=== PATIENT | male | born 1935 | race Caucasian/White ===

== ENCOUNTER 2016-10-27 12:53 | Emergency (ER) | payer OTHER ==
[~2016-10-27] VITALS: Ht 188 cm; Wt 130.0 kg
[~2016-10-27 12:53] MED LIST: AMLO10 PO; ATOR10 PO; CARV6.25 PO; COLC.6 PO; ECASA PO; LISI10 PO; NITR.4 SL; TICA90 PO
[2016-10-27 12:55] VITALS: BP 140/77; PULSE 77; RESP 17; TEMP 98.2; O2SAT 94
[2016-10-27] MEDS ORDERED: PANT40TA3 PO (15:28)
[2016-10-27] MEDS ORDERED: ASPI81CH CHEW (15:28)
[2016-10-27] MEDS ORDERED: PROP40TA3 PO (15:28)
[2016-10-27] MEDS ORDERED: AMBI5TAB PO (16:43)
[2016-10-27] MEDS ORDERED: AMOX500C PO (16:43)
== END 2016-10-27 15:45 | disposition left against medical advice (07) ==
LOC: NED 12:53
DX: R05 Cough (principal)
CPT/HCPCS: 99281

== ENCOUNTER 2016-10-27 14:19 | Emergency (ER) | payer OTHER ==
[~2016-10-27] VITALS: Ht 188 cm; Wt 126.0 kg
[2016-10-27 14:23] VITALS: BP 117/88; PULSE 67; RESP 16; TEMP 97.9; O2SAT 94
[2016-10-27] MEDS ORDERED: SODIUM CHLORIDE 0.9% FLUSH 10 ML FLUSH IV FLUSH PRN (15:00)
[2016-10-27 15:21] VITALS: RESP 18; O2SAT 94
--- NOTE | 2016-10-27 15:27 | PD ---
HPI Chief Complaint: Cold / Flu Symptoms Time Seen by Provider: 14:44 Travel History International Travel<30 days: No Contact w/Intl Traveler<30days: No Traveled to known affect area: No History of Present Illness HPI Patient 81-year-old male presents emergency department for evaluation of cough and congestion For the past 4 days. Patient called his primary care physician and was told to come into the emergency department to have his sodium and potassium levels checked as he might be dehydrated. His states that he thinks she is fairly well hydrated and she has been pushing by mouth fluids on him at home and he might of been more dehydrated a few days ago but is hydrated well now. Patient states he has had fever at home to 101. States his been having some phlegm production which is yellow in color. No rashes no bowel pain no nausea no vomiting. Patient denies any body aches PFSH Past Medical History Hx Anticoagulant Therapy: Yes Cardiac Catheterization: Yes (stent 10/2015, 2 stents placed 2008) Cardiovascular Problems: Yes High Cholesterol: Yes Chemotherapy: No Cerebrovascular Accident: No Coronary Artery Disease: Yes Diabetes: No Hypertension: Yes Respiratory: No Immunizations Current: Yes Social History Alcohol Use: No Tobacco Use: No Substance Use: No Allergies-Medications (Allergen,Severity, Reaction): Coded Allergies: No Known Allergies (Unverified , 10/27/16) Reported Meds & Prescriptions Reported Meds & Active Scripts Active Ambien (Zolpidem Tartrate) 5 Mg Tab 5 Mg PO HS PRN Amoxicillin 500 Mg Cap 500 Mg PO TID 7 Days Reported Pantoprazole (Pantoprazole Sodium) 40 Mg Tab 40 Mg PO DAILY Aspirin 81 Mg Chew 81 Mg CHEW EVERY OTHER DAY Propranolol (Propranolol HCl) 40 Mg Tab 40 Mg PO Q12HR Review of Systems Except as stated in HPI: all other systems reviewed are Neg Physical Exam Narrative GENERAL: Well-developed well-nourished no apparent distress SKIN: Focused skin assessment warm/dry. HEAD: Atraumatic. Normocephalic. EYES: Pupils equal and round. No scleral icterus. No injection or drainage. ENT: No nasal bleeding or discharge. Mucous membranes pink and moist. TMs clear bilaterally, oropharynx clear, airway widely patent. NECK: Trachea midline. No JVD. CARDIOVASCULAR: Regular rate and rhythm. No murmur appreciated. RESPIRATORY: No accessory muscle use. Clear to auscultation. Breath sounds equal bilaterally. GASTROINTESTINAL: Abdomen soft, non-tender, nondistended. Hepatic and splenic margins not palpable. MUSCULOSKELETAL: No obvious deformities. No clubbing. No cyanosis. No edema. NEUROLOGICAL: Awake and alert. No obvious cranial nerve deficits. Motor grossly within normal limits. Normal speech. PSYCHIATRIC: Appropriate mood and affect; insight and judgment normal. Data Data Last Documented VS Vital Signs Date Time Temp Pulse Resp B/P Pulse Ox O2 Delivery O2 Flow Rate FiO2 10/27/16 16:51 62 16 132/65 95 10/27/16 15:21 Room Air 10/27/16 14:23 97.9 Orders Basic Metabolic Panel (Bmp) (10/27/16 14:57) Complete Blood Count With Diff (10/27/16 14:57) Iv Access Insert/Monitor (10/27/16 14:57) Ecg Monitoring (10/27/16 14:57) Oximetry (10/27/16 14:57) Sodium Chloride 0.9% Flush (Ns Flush) (10/27/16 15:00) Chest, Pa & Lat (10/27/16 ) Labs Laboratory Tests Test 10/27/16 15:20 White Blood Count 5.9 TH/MM3 Red Blood Count 5.35 MIL/MM3 Hemoglobin 14.6 GM/DL Hematocrit 44.3 % Mean Corpuscular Volume 82.7 FL Mean Corpuscular Hemoglobin 27.3 PG Mean Corpuscular Hemoglobin 33.0 % Concent Red Cell Distribution Width 13.1 % Platelet Count 184 TH/MM3 Mean Platelet Volume 8.4 FL Neutrophils (%) (Auto) 57.3 % Lymphocytes (%) (Auto) 26.3 % Monocytes (%) (Auto) 16.0 % Eosinophils (%) (Auto) 0.2 % Basophils (%) (Auto) 0.2 % Neutrophils # (Auto) 3.3 TH/MM3 Lymphocytes # (Auto) 1.6 TH/MM3 Monocytes # (Auto) 1.0 TH/MM3 Eosinophils # (Auto) 0.0 TH/MM3 Basophils # (Auto) 0.0 TH/MM3 CBC Comment DIFF FINAL Differential Comment Sodium Level 136 MEQ/L Potassium Level 3.9 MEQ/L Chloride Level 98 MEQ/L Carbon Dioxide Level 26.7 MEQ/L Anion Gap 11 MEQ/L Blood Urea Nitrogen 16 MG/DL Creatinine 1.40 MG/DL Estimat Glomerular Filtration 49 ML/MIN Rate Random Glucose 109 MG/DL Calcium Level 8.3 MG/DL [facility] Medical Decision Making Medical Screen Exam Complete: Yes Emergency Medical Condition: Yes Differential Diagnosis URI, Pneumonia, Electrolyte imbalance seems unlikely. Narrative Course Patient roomed in ED. He appears well and in nad. Basic workup ordered including electrolytes and cxr. Patient discussed with oncoming provider Dr. Nunez to follow up workup and disposition appropriately. Scripts Zolpidem (Ambien)5 Mg Tab5 Mg PO HS PRN (INSOMNIA) #10 TAB Ref 0 Prov:John Nunez MD 10/27/16 Amoxicillin 500 Mg [id number] Mg PO TID 7 Days Ref 0 Prov:John Nunez MD 10/27/16 Condition: Stable Chaz Espinoza MD Oct 27, 2016 15:27
[2016-10-27] MEDS ORDERED: PROP40TA3 PO (15:28)
[2016-10-27] MEDS ORDERED: PANT40TA3 PO (15:28)
[2016-10-27] MEDS ORDERED: ASPI81CH CHEW (15:28)
[2016-10-27 15:54] LABS: AUTOMATED NEUTROPHIL # 3.3 TH/MM3 (1.8-7.7); BASOPHIL % 0.2 % (0.0-2.0); EOSINOPHIL % 0.2 % (0.0-4.0); HEMATOCRIT 44.3 % (39.0-51.0); HEMO FLAGS DIFF FINAL; LYMPH % 26.3 % (9.0-44.0); LYMPHOCYTE # 1.6 TH/MM3 (1.0-4.8); MEAN CELL VOLUME 82.7 FL (80.0-100.0); MEAN CORPUSCULAR HEMOGLOBIN 27.3 PG (27.0-34.0); NEUT % 57.3 % (16.0-70.0); PLATELET COUNT 184 TH/MM3 (150-450); RED BLOOD COUNT 5.35 MIL/MM3 (4.50-5.90); RED CELL DISTRIBUTION WIDTH 13.1 % (11.6-17.2); WHITE BLOOD COUNT 5.9 TH/MM3 (4.0-11.0)
--- NOTE | 2016-10-27 16:08 | RADHPO ---
EXAM DATE/TIME: 10/27/2016 15:25 [facility] COMPARISON: No previous studies available for comparison. FINDINGS: PA and lateral views of the chest demonstrate the lungs to be symmetrically aerated without evidence of mass, infiltrate or effusion. The cardiomediastinal contours are unremarkable. Osseous structure s are intact. CONCLUSION: No acute disease. Vitor Blanco MD FACR on October 27, 2016 at 16:06 Board Certified Radiologist. This report was verified electronically.
[2016-10-27 16:17] LABS: POTASSIUM 3.9 MEQ/L (3.5-5.1)
[2016-10-27 16:21] LABS: BICARBONATE 26.7 MEQ/L (21.0-32.0)
[2016-10-27] MEDS ORDERED: AMOX500C PO (16:43)
[2016-10-27] MEDS ORDERED: AMBI5TAB PO (16:43)
--- NOTE | 2016-10-27 16:43 | PD ---
HPI Chief Complaint: Cold / Flu Symptoms Time Seen by Provider: 16:39 Travel History International Travel<30 days: No Contact w/Intl Traveler<30days: No Traveled to known affect area: No History of Present Illness HPI This 81-year-old male says he been sick since last . It is now Thursday morning. He was seen initially by Dr. Espinoza. He's been having cough and congestion. He is feeling weak all over. He does use albuterol for wheezing. He stopped smoking [address] Espinoza ordered workup. His white count is 5.9. Electrolytes are normal. Creatinine slightly elevated at 1.4. Patient's main complaint is that he has not been able sleep for several days. He does say he has chronic trouble sleeping. On my examination he does have some scattered wheezes. It appears he has some COPD and I am going to cover him with antibiotics the appearance of a viral illness. Also prescribed 5 5 mg tablets of Ambien in hopes that he can get some sleep. I have cautioned him that it will make him unsteady. PFSH Past Medical History Hx Anticoagulant Therapy: Yes Cardiac Catheterization: Yes (stent 10/2015, 2 stents placed 2008) Cardiovascular Problems: Yes High Cholesterol: Yes Chemotherapy: No Cerebrovascular Accident: No Coronary Artery Disease: Yes Diabetes: No Diminished Hearing: No Hypertension: Yes Respiratory: No Immunizations Current: Yes Tetanus Vaccination: < 5 Years Social History Alcohol Use: No Tobacco Use: No (QUIT "40 YEARS AGO" STATED 10/27/16) Substance Use: No Allergies-Medications (Allergen,Severity, Reaction): Coded Allergies: No Known Allergies (Unverified , 10/27/16) Reported Meds & Prescriptions Reported Meds & Active Scripts Active Reported Pantoprazole (Pantoprazole Sodium) 40 Mg Tab 40 Mg PO DAILY Aspirin 81 Mg Chew 81 Mg CHEW EVERY OTHER DAY Propranolol (Propranolol HCl) 40 Mg Tab 40 Mg PO Q12HR Review of Systems General / Constitutional: Positive: Chills Respiratory: Positive: Cough Musculoskeletal: Positive: Myalgias, Weakness Hematologic/Lymphatic: Positive: Easy Bruising Physical Exam Narrative See Dr. Espinoza's note for full exam. On my exam does have some expiratory wheezing. I did examine her legs because of the leg weakness. He has good strength in flexion at the hip. Strength and I interpret dorsiflexion of the feet sensation is normal. He is awake and alert Data Data Last Documented VS Vital Signs Date Time Temp Pulse Resp B/P Pulse Ox O2 Delivery O2 Flow Rate FiO2 10/27/16 15:21 18 94 Room Air 10/27/16 14:23 97.9 67 117/88 Orders Basic Metabolic Panel (Bmp) (10/27/16 14:57) Complete Blood Count With Diff (10/27/16 14:57) Iv Access Insert/Monitor (10/27/16 14:57) Ecg Monitoring (10/27/16 14:57) Oximetry (10/27/16 14:57) Sodium Chloride 0.9% Flush (Ns Flush) (10/27/16 15:00) Chest, Pa & Lat (10/27/16 ) Labs Laboratory Tests Test 10/27/16 15:20 White Blood Count 5.9 TH/MM3 Red Blood Count 5.35 MIL/MM3 Hemoglobin 14.6 GM/DL Hematocrit 44.3 % Mean Corpuscular Volume 82.7 FL Mean Corpuscular Hemoglobin 27.3 PG Mean Corpuscular Hemoglobin 33.0 % Concent Red Cell Distribution Width 13.1 % Platelet Count 184 TH/MM3 Mean Platelet Volume 8.4 FL Neutrophils (%) (Auto) 57.3 % Lymphocytes (%) (Auto) 26.3 % Monocytes (%) (Auto) 16.0 % Eosinophils (%) (Auto) 0.2 % Basophils (%) (Auto) 0.2 % Neutrophils # (Auto) 3.3 TH/MM3 Lymphocytes # (Auto) 1.6 TH/MM3 Monocytes # (Auto) 1.0 TH/MM3 Eosinophils # (Auto) 0.0 TH/MM3 Basophils # (Auto) 0.0 TH/MM3 CBC Comment DIFF FINAL Differential Comment Sodium Level 136 MEQ/L Potassium Level 3.9 MEQ/L Chloride Level 98 MEQ/L Carbon Dioxide Level 26.7 MEQ/L Anion Gap 11 MEQ/L Blood Urea Nitrogen 16 MG/DL Creatinine 1.40 MG/DL Estimat Glomerular Filtration 49 ML/MIN Rate Random Glucose 109 MG/DL Calcium Level 8.3 MG/DL [facility] Medical Decision Making Medical Screen Exam Complete: Yes Emergency Medical Condition: Yes Medical Record Reviewed: Yes Differential Diagnosis Differential includes influenza, COPD, pneumonia Narrative Course 3 is negative for pneumonia. Patient does have some wheezing on exam and I think would benefit from antibiotics have also advised him to use his albuterol. I will prescribe some Ambien for sleep Diagnosis Primary Impression: Acute bronchitis Scripts Zolpidem (Ambien)5 Mg Tab5 Mg PO HS PRN (INSOMNIA) #10 TAB Ref 0 Prov:John Nunez MD 10/27/16 Amoxicillin 500 Mg Chh960 Mg PO TID 7 Days Ref 0 Prov:John Nunez MD 10/27/16 Disposition: 01 DISCHARGE HOME Condition: Stable John Nunez MD Oct 27, 2016 16:43
[2016-10-27 16:51] VITALS: BP 132/65
== END 2016-10-27 16:57 | disposition home or self-care (01) ==
LOC: PHED 14:19
DX: J20.9 Acute bronchitis, unspecified (principal); I10 Essential (primary) hypertension; Z87.891 Personal history of nicotine dependence
CPT/HCPCS: 71020; 80048; 85025; 99284

== ENCOUNTER 2017-03-19 11:15 | Inpatient (IN) | payer OTHER, MEDICARE ==
[~2017-03-19] VITALS: Ht 185.4 cm; Wt 131.0 kg
[2017-03-19] VITALS (13 sets, daily range): BP systolic 123–167; BP diastolic 62–96; PULSE 77–120; RESP 16–21; TEMP 97.4–97.8; O2SAT 95–97
[~2017-03-19 11:15] MED LIST changes: +AMBI5TAB PO; -AMLO10 PO; +AMOX500C PO; +ASPI81CH CHEW; -ATOR10 PO; -CARV6.25 PO; -COLC.6 PO; -ECASA PO; -LISI10 PO; -NITR.4 SL; +PANT40TA3 PO; +PROP40TA3 PO; -TICA90 PO
--- NOTE | 2017-03-19 12:06 | PD ---
HPI Chief Complaint: Cardiac Complaint Time Seen by Provider: 12:05 Travel History International Travel<30 days: No Contact w/Intl Traveler<30days: No Traveled to known affect area: No History of Present Illness HPI Patient comes emergency Department for evaluation of shortness of breath and chest pain that he awoke with this morning. Patient denies anything making it better or worse. States pain radiates across his chest. He states he initially woke feeling something stinging him as right middle finger and then began having symptoms. Patient states he has not taken his aspirin or other meds since yesterday morning secondary to supposed to be having a dental procedure done today. Patient's associated diaphoresis. Denies any palpitations, numbness or tingling, headache, back pain, nausea, or vomiting. Patient has a history of hypertension, hyperlipidemia, coronary disease, and pericarditis. Patient denies any history of A. fib. Patient is followed by Dr. Mehta his chief nursing officer. Patient denies doing anything for this prior to coming to the emergency department. PFSH Past Medical History Hx Anticoagulant Therapy: Yes Cardiac Catheterization: Yes (stent 10/2015, 2 stents placed 2008) Cardiovascular Problems: Yes (3 STENTS AL AFIB) High Cholesterol: Yes Chemotherapy: No Cerebrovascular Accident: No Coronary Artery Disease: Yes Diabetes: No Diminished Hearing: No Hypertension: Yes Respiratory: No Immunizations Current: Yes Social History Alcohol Use: No Tobacco Use: No (QUIT "40 YEARS AGO" STATED 10/27/16) Substance Use: No Allergies-Medications (Allergen,Severity, Reaction): Coded Allergies: No Known Allergies (Unverified , 03/19/17) Reported Meds & Prescriptions Reported Meds & Active Scripts Active Reported Pantoprazole (Pantoprazole Sodium) 40 Mg Tab 40 Mg PO DAILY Propranolol (Propranolol HCl) 40 Mg Tab 40 Mg PO Q12HR Review of Systems Except as stated in HPI: all other systems reviewed are Neg Physical Exam Narrative GENERAL: Well-developed, overly nourished, in no acute distress, and non-ill appearing. SKIN: Focused skin assessment warm and dry. HEAD: Atraumatic. Normocephalic. EYES: Pupils equal and round. EOMI. No scleral icterus. No injection or drainage. ENT: No nasal bleeding or discharge. Mucous membranes pink and moist. NECK: Trachea midline. No JVD. Supple. No nuclear rigidity. CARDIOVASCULAR: Irregular rate and rhythm. No murmur appreciated. RESPIRATORY: No accessory muscle use. No respiratory distress. Clear to auscultation. Breath sounds equal bilaterally. GASTROINTESTINAL: Abdomen soft, non-tender, nondistended, and no guarding. Hepatic and splenic margins not palpable. Normal bowel sounds 4. No pulsatile mass. MUSCULOSKELETAL: No obvious deformities. No clubbing. No cyanosis. No edema. Full range of motion. NEUROLOGICAL: Awake and alert. No obvious cranial nerve deficits. Motor grossly within normal limits. Normal speech. PSYCHIATRIC: Appropriate mood and affect; insight and judgment normal. Data Data Last Documented VS Vital Signs Date Time Temp Pulse Resp B/P Pulse Ox O2 Delivery O2 Flow Rate FiO2 03/19/17 12:36 86 19 123/63 96 Room Air 03/19/17 12:08 97.6 Orders Electrocardiogram (03/19/17 11:24) Complete Blood Count With Diff (03/19/17 11:24) Basic Metabolic Panel (Bmp) (03/19/17 11:24) Ckmb (Isoenzyme) Profile (03/19/17 11:24) Troponin I (03/19/17 11:24) Iv Access Insert/Monitor (03/19/17 11:24) Ecg Monitoring (03/19/17 11:24) Oxygen Administration (03/19/17 11:24) Oximetry (03/19/17 11:24) Chest, Pa & Lat (03/19/17 11:24) Magnesium (Mg) (03/19/17 12:00) Diltiazem Inj (Cardizem Inj) (03/19/17 12:15) Diltiazem Inj (Cardizem Inj) (03/19/17 12:15) Aspirin Chew (Aspirin Chew) (03/19/17 12:15) Prothrombin Time / Inr (Pt) (03/19/17 13:11) Act Partial Throm Time (Ptt) (03/19/17 13:11) CKMB (03/19/17 12:40) CKMB% (03/19/17 12:40) Aspirin Chew (Aspirin Chew) (03/19/17 13:45) Heparin Infusion ANGELA.Q1H (03/19/17 13:52) Heparin Inj (Heparin Inj) (03/19/17 20:00) Heparin Inj (Heparin Inj) (03/19/17 20:00) Heparin-D5w Inj (Heparin-D5w Inj) (03/19/17 14:00) Act Partial Throm Time (Ptt) (03/19/17 13:52) Prothrombin Time / Inr (Pt) (03/19/17 13:52) Cbc No Diff, Includes Plts (03/19/17 13:52) Cbc No Diff, Includes Plts (03/22/17 06:00) Act Partial Throm Time (Ptt) (03/19/17 20:52) Occult Blood (Hemoccult) Stool (03/19/17 13:52) Consult Cardiology (03/19/17 ) Admit Order (Ed Use Only) (03/19/17 14:16) Labs Laboratory Tests Test 03/19/17 03/19/17 12:15 12:40 Magnesium Level 2.0 MG/DL White Blood Count 9.2 TH/MM3 Red Blood Count 5.73 MIL/MM3 Hemoglobin 16.2 GM/DL Hematocrit 49.1 % Mean Corpuscular Volume 85.8 FL Mean Corpuscular Hemoglobin 28.3 PG Mean Corpuscular Hemoglobin 32.9 % Concent Red Cell Distribution Width 14.1 % Platelet Count 238 TH/MM3 Mean Platelet Volume 7.8 FL Neutrophils (%) (Auto) 61.4 % Lymphocytes (%) (Auto) 28.0 % Monocytes (%) (Auto) 8.7 % Eosinophils (%) (Auto) 1.6 % Basophils (%) (Auto) 0.3 % Neutrophils # (Auto) 5.6 TH/MM3 Lymphocytes # (Auto) 2.6 TH/MM3 Monocytes # (Auto) 0.8 TH/MM3 Eosinophils # (Auto) 0.1 TH/MM3 Basophils # (Auto) 0.0 TH/MM3 CBC Comment DIFF FINAL Differential Comment Prothrombin Time 10.7 SEC Prothromb Time International 1.0 RATIO Ratio Activated Partial 30.3 SEC Thromboplast Time Sodium Level 136 MEQ/L Potassium Level 4.2 MEQ/L Chloride Level 102 MEQ/L Carbon Dioxide Level 22.4 MEQ/L Anion Gap 12 MEQ/L Blood Urea Nitrogen 20 MG/DL Creatinine 1.35 MG/DL Estimat Glomerular Filtration 51 ML/MIN Rate Random Glucose 140 MG/DL Calcium Level 8.9 MG/DL Total Creatine Kinase 219 U/L Creatine Kinase MB 10.8 NG/ML Troponin I 0.64 NG/ML MDM Medical Decision Making Medical Screen Exam Complete: Yes Emergency Medical Condition: Yes Medical Record Reviewed: Yes Interpretation(s) EKG reviewed by Dr. Espinoza shows A. fib with RVR ventricular rate of 136. No STEMI. Chest x-ray read by the radiologist shows: No acute cardiopulmonary disease. Differential Diagnosis New-onset A. fib, acute coronary syndrome, pneumonia, pneumothorax, electrolyte abnormality, other Narrative Course Patient was seen and examined. Was established. Patient was placed on court monitor. Patient was given aspirin. Initial laboratory radiological studies were ordered. 1300 patient reassessed reports feeling better since getting Cardizem heart rate is better controlled. Patient reports shortness of breath has resolved. Labs and radiological exams were reviewed. Discussed patient with Dr. Espinoza, who is in agreement with plan of care and disposition. Discussed all findings and plan care of patient, who is agreeable for admission. All questions were answered. Physician Communication Physician Communication [id number] Mccray, chief nursing officer on-call for Dr. Mehta, who recommends starting patient on heparin drip and admitted to medicine. [id number] Funes, who is agreeable to admit the patient. Diagnosis Primary Impression: New onset a-fib Additional Impression: Elevated troponin Admitting Information Admitting Physician Requests: Admit Condition: Stable Chacho Fortune Mar 19, 2017 12:06
[2017-03-19] MEDS ORDERED: DILTIAZEM HCL 25 MG/5 ML VIAL IV ONE (12:15)
[2017-03-19] MEDS ORDERED: ASPIRIN 81 MG CHEW TAB PO ONE ×2 (12:15→13:45)
[2017-03-19] MEDS ORDERED: DILTIAZEM INJ 125 MG in SODIUM CHLORIDE 0.9% INJ 100 ML IV SCH (12:15)
--- NOTE | 2017-03-19 12:22 | RADRPT ---
EXAM DATE/TIME: 03/19/2017 11:51 [facility] COMPARISON: CHEST PA & LAT, October 27, 2016, 15:25. INDICATIONS : Chest discomfort and short of breath. Patient in A-fib. MEDICAL HISTORY : Hypertension. Cardiovascular disease. SURGICAL HISTORY : Coronary artery stent. ENCOUNTER: Initial ACUITY: 1 day PAIN SCORE: 3/10 LOCATION: Bilateral chest FINDINGS: The heart and mediastinal structures are normal. The pulmonary vascular pattern is also normal. The lungs are clear. CONCLUSION: No acute cardiopulmonary disease. Chaz Salinas MD on March 19, 2017 at 12:09 Board Certified Radiologist. This report was verified electronically.
[2017-03-19 13:17] LABS: AUTOMATED NEUTROPHIL # 5.6 TH/MM3 (1.8-7.7); BASOPHIL % 0.3 % (0.0-2.0); EOSINOPHIL # 0.1 TH/MM3 (0-0.4); EOSINOPHIL % 1.6 % (0.0-4.0); HEMATOCRIT 49.1 % (39.0-51.0); HEMO FLAGS DIFF FINAL; LYMPHOCYTE # 2.6 TH/MM3 (1.0-4.8); MEAN CELL VOLUME 85.8 FL (80.0-100.0); MEAN CORPUSCULAR HEMOGLOBIN 28.3 PG (27.0-34.0); MEAN CORPUSCULAR HGB CONC 32.9 % (32.0-36.0); MONO % 8.7 % (0.0-8.0); NEUT % 61.4 % (16.0-70.0); PLATELET COUNT 238 TH/MM3 (150-450); RED BLOOD COUNT 5.73 MIL/MM3 (4.50-5.90); RED CELL DISTRIBUTION WIDTH 14.1 % (11.6-17.2); WHITE BLOOD COUNT 9.2 TH/MM3 (4.0-11.0)
[2017-03-19 13:32] LABS: ANION GAP 12 MEQ/L (5-15); BICARBONATE 22.4 MEQ/L (21.0-32.0); BLOOD UREA NITROGEN 20 MG/DL (7-18); CHLORIDE 102 MEQ/L (98-107); CREATINE KINASE 219 U/L (39-308); GLOMERULAR FILTRATION RATE 51 ML/MIN (>89); POTASSIUM 4.2 MEQ/L (3.5-5.1); SODIUM (NA) 136 MEQ/L (136-145)
[2017-03-19 13:48] LABS: CKMB 10.8 NG/ML (0.5-3.6)
[2017-03-19 13:59] LABS: APTT (PATIENT) 30.3 SEC (24.3-30.1); PROTHROMBIN TIME - PATIENT 10.7 SEC (9.8-11.6)
[2017-03-19] MEDS ORDERED: MAGNESIUM HYDROXIDE SUSP 30 ML CUP PO PRN (14:30)
[2017-03-19] MEDS ORDERED: BISACODYL 10 MG SUPP RECTAL PRN (14:30)
[2017-03-19] MEDS ORDERED: SENNOSIDES 8.6 MG TAB PO PRN (14:30)
[2017-03-19] MEDS ORDERED: LACTULOSE SYRUP 20 GM/30 ML CUP PO PRN (14:30)
[2017-03-19] MEDS ORDERED: ATORVASTATIN 80 MG TAB PO ONE (14:30)
[2017-03-19] MEDS ORDERED: ONDANSETRON HCL 4 MG/2 ML VIAL IVP PRN (14:30)
[2017-03-19] MEDS ORDERED: SODIUM CHLORIDE 0.9% FLUSH 10 ML FLUSH IV FLUSH PRN (14:30)
[2017-03-19] MEDS ORDERED: NALOXONE HCL 0.4 MG/ML AMP IV PRN (14:30)
[2017-03-19] MEDS ORDERED: HEPARIN SODIUM - IV 10,000 UNITS/10 ML VIAL ONE (15:00)
[2017-03-19] MEDS: HEPARIN SODIUM - IV 10,000 UNITS/10 ML VIAL IV PRN ×2 (15:02→22:02)
[2017-03-19] MEDS: HEPARIN-D5W 25,000 U/250 ML 250 ML IV SCH (15:03)
--- NOTE | 2017-03-19 15:07 | HHI.HP ---
H[facility] Primary [facility] Physician Terry Carbajal MD Admission Diagnosis new-onset A. fib with RVR, elevated troponin Diagnoses: Chief Complaint: chest pain, shortness of breath Travel History International Travel<30 Days: No Contact w/Intl Traveler <30 Da: No Traveled to Known Affected Are: No History of Present Illness Written by Julee Austin, acting as scribe for Dr. Funes on 03/19/17 at 16: 50hrs. This note was transcribed by scribe HENOK Momin. I, Dr. Lencho Funes personally performed the history, physical exam, and medical decision making; and confirmed the accuracy of the information in the transcribed note. Authenticated by Dr. Lencho Funes on 03/19/17 at 23:19. 81-year-old male with history of CAD s/p stents x3, hypertension, hyperlipidemia , pericarditis, PUD, presents with acute onset of chest pain and shortness of breath today 03/19/17. THe patient reports this morning around 2am he woke up with his right fingers hurting then shortly after he developed chest pain. He describes the pain as heaviness across the anterior chest, associated with shortness of breath, some diaphoresis, denies nausea/vomiting. He felt his heart was racing with palpitations. He waited for about an hour then took his blood pressure which was 140/118. His pain persisted for over 3 hours until he came to the ED. His repairing calibrator is Dr. Mehta. The patient reports he has been off his aspirin for upcoming dental procedure that was scheduled for today. Upon arrival, the patient was found to be in afib with RVR, started on IV Cardizem drip and IV heparin drip. The patient admits he has been told around November 2015 that he has atrial fibrillation however the patient has never had symptoms from this therefore he didn't believe he had it. He was going to be started on Eliquis soon however it was held off until he had his dental extractions. Review of Systems Except as stated in HPI: all other systems reviewed are Neg Past Family Social History Past Medical History CAD s/p stents x3 (2 in 2008, 1 in 2015) Hypertension Hyperlipidemia Essential tremors Melanoma PUD Pericarditis Past Surgical History Cardiac catheterization with stents x3 Melanoma resection in 1994 Tonsillectomy Reported Medications Pantoprazole (Pantoprazole Sodium) 40 Mg Tab 40 Mg PO DAILY Propranolol (Propranolol HCl) 40 Mg Tab 40 Mg PO Q12HR Allergies: Coded Allergies: No Known Allergies (Unverified , 03/19/17) Active Ordered Medications Current Medications Medications (Trade) Dose Ordered Sig/Makayla Route Start Time Stop Time Status Last Admin (Cardizem Inj/NS Inj) 125 ml @ 0 mls/hr TITRATE IV 03/19/17 12:15 (Heparin Inj) 5,000 units UNSCH PRN IV 03/19/17 20:00 Heparin Sodium (Porcine) 2500 units 2,500 units UNSCH PRN IV 03/19/17 20:00 (Heparin-D5W Inj) 250 ml @ 0 mls/hr TITRATE IV 03/19/17 14:00 (NS Flush) 2 ml UNSCH PRN IV FLUSH 03/19/17 14:30 (NS Flush) 2 ml BID IV FLUSH 03/19/17 21:00 (Tylenol) 650 mg Q4H PRN PO 03/19/17 14:30 (Zofran Inj) 4 mg Q6H PRN IVP 03/19/17 14:30 (Narcan Inj) 0.4 mg UNSCH PRN IV 03/19/17 14:30 (Brenda-Colace) 1 tab BID PO 03/19/17 21:00 (Milk Of Magnesia Liq) 30 ml Q12H PRN PO 03/19/17 14:30 (Senokot) 17.2 mg Q12H PRN PO 03/19/17 14:30 (Dulcolax Supp) 10 mg DAILY PRN RECTAL 03/19/17 14:30 (Lactulose Liq) 30 ml DAILY PRN PO 03/19/17 14:30 Family History Mother with [place], CVA, age 86 Father with [place], age 79 Social History Quit smoking tobacco 40years ago Denies any alcohol use Denies any illicit drug use Physical Exam Vital Signs Vital Signs Date Time Temp Pulse Resp B/P Pulse Ox O2 Delivery O2 Flow Rate FiO2 03/19/17 12:36 86 19 123/63 96 Room Air 03/19/17 12:08 97.6 113 18 164/89 96 Room Air 03/19/17 12:06 95 Room Air 03/19/17 12:06 95 Room Air 03/19/17 11:18 97.4 80 16 165/84 96 Physical Exam GENERAL: Well-nourished, well-developed elderly male patient in [facility]. SKIN: Warm and dry. No rash. HEAD: Normocephalic. Atraumatic. EYES: Pupils equal and round. No scleral icterus. No injection or drainage. ENT: No nasal bleeding or discharge. Mucous membranes pink and moist. NECK: Supple. Trachea midline. CARDIOVASCULAR: Irregular rate and rhythm. S1, S2 noted. No murmur appreciated. RESPIRATORY: No accessory muscle use. Clear to auscultation. Breath sounds equal bilaterally. GASTROINTESTINAL: Abdomen soft, non-tender, nondistended. Normoactive bowel sounds x4. MUSCULOSKELETAL: No obvious deformities. Extremities without clubbing, cyanosis , or edema. NEUROLOGICAL: Awake and alert. No obvious cranial nerve deficits. Motor grossly within normal limits. Moves all extremities spontaneously. Normal speech. PSYCHIATRIC: Appropriate mood and affect; insight and judgment normal. Laboratory Laboratory Tests Test 03/19/17 03/19/17 12:15 12:40 Magnesium Level 2.0 White Blood Count 9.2 Red Blood Count 5.73 Hemoglobin 16.2 Hematocrit 49.1 Mean Corpuscular Volume 85.8 Mean Corpuscular Hemoglobin 28.3 Mean Corpuscular Hemoglobin 32.9 Concent Red Cell Distribution Width 14.1 Platelet Count 238 Mean Platelet Volume 7.8 Neutrophils (%) (Auto) 61.4 Lymphocytes (%) (Auto) 28.0 Monocytes (%) (Auto) 8.7 Eosinophils (%) (Auto) 1.6 Basophils (%) (Auto) 0.3 Neutrophils # (Auto) 5.6 Lymphocytes # (Auto) 2.6 Monocytes # (Auto) 0.8 Eosinophils # (Auto) 0.1 Basophils # (Auto) 0.0 CBC Comment DIFF FINAL Differential Comment Prothrombin Time 10.7 Prothromb Time International 1.0 Ratio Activated Partial 30.3 Thromboplast Time Sodium Level 136 Potassium Level 4.2 Chloride Level 102 Carbon Dioxide Level 22.4 Anion Gap 12 Blood Urea Nitrogen 20 Creatinine 1.35 Estimat Glomerular Filtration 51 Rate Random Glucose 140 Calcium Level 8.9 Total Creatine Kinase 219 Creatine Kinase MB 10.8 Troponin I 0.64 Result Diagram: 03/19/17 1240 03/19/17 1240 Imaging Last Impressions Chest X-Ray 03/19/17 1124 Signed Impressions: Service Date/Time: March 11:51 - CONCLUSION: No acute cardiopulmonary disease. Chaz Salinas MD Assessment and Plan Problem List: (1) New onset a-fib ICD Code: I48.91 Status: Acute (2) NSTEMI (non-ST elevated myocardial infarction) ICD Code: I21.4 Status: Acute (3) CAD (coronary artery disease) ICD Code: I25.10 Status: Chronic (4) Chest pain ICD Code: R07.9 Status: Acute (5) Elevated troponin ICD Code: R74.8 Status: Acute (6) Hypertension ICD Code: I10 Status: Chronic (7) Hyperlipidemia ICD Code: E78.5 Status: Chronic Assessment and Plan 81-year-old male with history of CAD s/p stents x3, hypertension, hyperlipidemia , pericarditis, PUD, presents with acute onset of chest pain and shortness of breath today 03/19/17. Atrial Fibrillation with RVR: EKG reviewed, shows afib w/RVR, ventricular rate 136. S/p IV Cardizem 20mg x1. -Discussed with Dr. Mehta, start metoprolol 25mg q8h -Started anticoagulation with IV heparin drip, plan to transition to Xarelto. [id number] score 3 (Age, HTN). -Monitor on telemetry -Admit to [facility] -Cardiology consulted, patient known to Dr. Mehta NSTEMI: suspect secondary to ACS vs afib RVR, patient with complaints of chest pain and T wave abnormality in lateral leads. Hx of Cardiac Catheterization by Dr. Yusuf, stent placed at right coronary artery. -Continue to trend serial cardiac enzymes and EKGs -given aspirin, statin, IV morphine prn, O2 as needed -on Heparin drip as above -Cardiology consulted, discussed with Dr. Mehta, plan for heart cath tomorrow Hypertension: chronic -hold patient's propranolol for now as BP controlled on cardizem drip -monitor BP, adjust antihypertensives as needed Hyperlipidemia: Lipid panel October2015 wnl, not on statin -check lipid panel in am -discussed with patient, will start statin DVT Prophylaxis: on Heparin drip Discussed Condition With Patient, patient's , ER PA Physician Certification 2 Midnight Certification Type: Admission for Inpatient Services Order for Inpatient Services The services are ordered in accordance with Medicare regulations or non- Medicare payer requirements, as applicable. In the case of services not specified as inpatient-only, they are appropriately provided as inpatient services in accordance with the 2-midnight benchmark. Estimated LOS (days): 3 days is the estimated time the patient will need to remain in the hospital, assuming treatment plan goals are met and no additional complications. Post-Hospital Plan: Not yet determined Julee Austin PA-C Mar 19, 2017 15:07 Brenden Funes DO Mar 19, 2017 23:22
[2017-03-19] MEDS ORDERED: MORPHINE SULFATE 4 MG/ML INJ IV PUSH PRN (15:30)
[2017-03-19] MEDS ORDERED: METOPROLOL TARTRATE 25 MG TAB PO ONE (18:15)
[2017-03-19] MEDS ORDERED: HEPARIN SODIUM - IV 10,000 UNITS/10 ML VIAL IV PRN (20:00)
[2017-03-19] MEDS: DOCUSATE SODIUM 50 MG/SENNA 8.6 MG TAB PO SCH (20:57)
[2017-03-19] MEDS: SODIUM CHLORIDE 0.9% FLUSH 10 ML FLUSH IV FLUSH SCH (20:57)
[2017-03-19 21:23] LABS: APTT (PATIENT) 35.2 SEC (24.3-30.1)
[2017-03-19] MEDS ORDERED: METOPROLOL TARTRATE 25 MG TAB PO SCH (22:00)
--- NOTE | 2017-03-19 23:31 | MB ---
cc: VENKATA SCHUSTER DO DATE OF CONSULTATION March 19, 2017 REASON FOR CONSULTATION Atrial fibrillation, NSTEMI. HISTORY OF PRESENT ILLNESS Toni Thompson is a pleasant 81-year-old male whom I see in the office who presented to [facility] on March 19, 2017 due to atrial fibrillation, chest pain and shortness of breath. I recently saw Mr. Thompson in the office and started him on Eliquis for his atrial fibrillation. Overall, it appeared that his heart rate was relatively controlled. He started on Eliquis but it was too expensive and so he was going to start on Xarelto but had a dental procedure this week and so was just on aspirin and even that was held over the past two days. He woke up this morning and started having chest pain. He knew at that time he was in atrial fibrillation. He felt a heaviness across the front of his chest. He was also short of breath with any type of exertion. He is mildly diaphoretic during the episode. He denies nausea or vomiting. He felt like his heart was racing with palpitations. He called the office and was instructed to come to the emergency room. He finally decided at that time he should come into the emergency room. Upon arrival he was found to have an elevated troponin and was in atrial fibrillation with rapid ventricular response. He was given a dose of IV Cardizem and heart rate was then controlled. PAST MEDICAL HISTORY 1. Coronary artery disease. 2. Hypertension. 3. Hyperlipidemia. 4. Essential tremors. 5. Melanoma. 6. PUD. 7. Pericarditis. 8. Paroxysmal atrial fibrillation. PAST SURGICAL HISTORY 1. Cardiac catheterization with a history of three stents, most recent cardiac catheterization (October 03, 2015). He underwent PCI of his RCA with a Resolute drug-eluting stent (4 x 15). Left main was normal appearing. LAD had diffuse irregularities of 20%. In the left circumflex there was a lesion of 50-60%. RCA had a proximal 75% lesion for which the patient had PCI. 2. Melanoma resection (1994). 3. Tonsillectomy. ALLERGIES NO KNOWN DRUG ALLERGIES. MEDICATIONS 1. Propranolol 40 milligrams q. 12. 2. Protonix 40 milligrams daily. 3. Previously, although briefly, on Eliquis which was in the process of being changed to Xarelto. FAMILY HISTORY Mother had an PA and CVA and at the age of 86. Father had an PA and at the age of 79. SOCIAL HISTORY The patient quit smoking tobacco 40 years ago. Denies alcohol or illicit drug abuse. REVIEW OF SYSTEMS 14-systems were reviewed including osteopathic. Pertinent positives and negatives above otherwise negative. PHYSICAL EXAMINATION VITAL SIGNS: Temperature 97.6, heart rate 87, blood pressure 138/68, respirations 18, pulse ox 97% on room air. GENERAL: In general, the patient appears well in no acute distress, alert, awake and oriented x3. HEENT: Extraocular muscles intact. Mucous membranes moist. NECK: Supple. No JVD at 45 degrees. No carotid bruits heard bilaterally. Carotid upstroke is brisk in nature. HEART: Heart is irregularly irregular. Positive first and second heart sounds with no noted murmurs, gallops or rubs. LUNGS: Have decreased breath sounds at bilateral bases but no overt wheezes, rales or rhonchi. ABDOMEN: Soft, nontender, nondistended. No organomegaly noted. EXTREMITIES: Show no clubbing, cyanosis or edema. Femoral and distal pulses intact bilaterally. NEUROLOGICALLY: No focal deficits. SKIN: Warm, dry and intact. OSTEOPATHIC: Mild lordosis. No kyphoscoliosis or paraspinal tender points. LABORATORY FINDINGS Hemoglobin 16.2, hematocrit 49.1, platelets 238. Potassium 4.2, BUN 20, creatinine 1.35. Troponin 0.64 increasing to 0.9. Electrocardiogram (March 19, 2017 at 11:31) atrial fibrillation with rapid ventricular response, nonspecific ST-T wave changes. IMPRESSION 1. NSTEMI. 2. Chest pain concerning for coronary insufficiency. 3. History of coronary artery disease. 4. Paroxysmal atrial fibrillation with rapid ventricular response. 5. Hypertension. 6. Hyperlipidemia. 7. Chronic kidney disease. RECOMMENDATIONS 1. Mr. Thompson appears to have presented with elevated troponin and chest pain concerning for coronary insufficiency. His troponin spill is most likely type 1 in nature, although, this may also be type 2 as he was in a rapid ventricular response. 2. We will plan for him to undergo cardiac catheterization in the morning. Risks, benefits and alternatives were explained to him and he consented as such. 3. He will be started on heparin drip. 4. Will check a 2-D echo to look at his overall left ventricular function, cardiac structure and possible valvulopathies. 5. Eventually, he will be transferred to [facility] for his atrial fibrillation depending on the results of his cardiac catheterization. 6. We will plan to change his propranolol to metoprolol for better control of his heart rate. 7. Further recommendations will be made based on the hospital course. Thank you for allowing me to see Toni Thompson. If there are any questions please do not hesitate to call. Venkata Schuster DO VGP/EO /10:36 PM /11:09 PM
[2017-03-20] VITALS (23 sets, daily range): BP systolic 120–140; BP diastolic 72–85; PULSE 71–114; RESP 14–18; TEMP 97.3–98; O2SAT 96
[2017-03-20 05:42] LABS: APTT (PATIENT) 35.1 SEC (24.3-30.1)
[2017-03-20] MEDS: HEPARIN SODIUM - IV 10,000 UNITS/10 ML VIAL IV PRN ×2 (05:50→23:57)
[2017-03-20 06:03] LABS: ALT (GPT) 36 U/L (12-78); ANION GAP 11 MEQ/L (5-15); BICARBONATE 22.6 MEQ/L (21.0-32.0); BLOOD UREA NITROGEN 21 MG/DL (7-18); CHLORIDE 104 MEQ/L (98-107); GLOMERULAR FILTRATION RATE 52 ML/MIN (>89); SODIUM (NA) 138 MEQ/L (136-145)
[2017-03-20 06:29] LABS: ALKALINE PHOSPHATASE 47 U/L (45-117); AST (GOT) 42 U/L (15-37); TOTAL BILIRUBIN ADULT 0.5 MG/DL (0.2-1.0)
[2017-03-20] MEDS: SODIUM CHLORIDE 0.9% FLUSH 10 ML FLUSH IV FLUSH SCH ×2 (09:00→20:50)
--- NOTE | 2017-03-20 09:07 | HHI.PR ---
Subjective Remarks Follow-up for chest pain. Patient is currently doing well. Waiting for cardiac catheter today. Patient denies any chest pain, shortness of breath, fever or chills. His currently on heparin drip. Objective Vitals Vital Signs Date Time Temp Pulse Resp B/P Pulse Ox O2 Delivery O2 Flow Rate FiO2 03/20/17 07:00 89 03/20/17 06:00 102 03/20/17 05:00 100 03/20/17 04:00 90 03/20/17 03:30 97.7 80 16 129/85 96 03/20/17 03:00 97 03/20/17 02:00 92 03/20/17 01:00 94 03/20/17 00:00 97.9 75 18 120/72 96 03/20/17 00:00 86 03/19/17 23:00 120 03/19/17 22:23 97 03/19/17 22:00 98 03/19/17 21:15 83 03/19/17 21:15 97.8 77 18 141/96 96 03/19/17 20:49 87 18 138/68 97 Room Air 03/19/17 19:38 86 18 138/67 97 Room Air 03/19/17 18:29 95 19 126/65 95 Room Air 03/19/17 18:00 86 19 142/62 96 Room Air 03/19/17 17:35 119 21 167/79 96 Room Air 03/19/17 12:36 86 19 123/63 96 Room Air 03/19/17 12:08 97.6 113 18 164/89 96 Room Air 03/19/17 12:06 95 Room Air 03/19/17 12:06 95 Room Air 03/19/17 11:18 97.4 80 16 165/84 96 I/O 03/19/17 03/19/17 03/19/17 03/20/17 03/20/17 03/20/17 06:59 14:59 22:59 06:59 14:59 22:59 Intake Total 389 ml Output Total 400 ml Balance -11 ml Intake Oral 240 ml IV Total 149 ml Output Urine Total 400 ml # Voids 1 # Bowel Movements 2 Result Diagram: 03/19/17 1240 03/20/17 0521 Imaging Last Impressions Chest X-Ray 03/19/17 1124 Signed Impressions: Service Date/Time: March 11:51 - CONCLUSION: No acute cardiopulmonary disease. Chaz Salinas MD Objective Remarks GENERAL: Alert, oriented 3, NAD. SKIN: Warm and dry. HEAD: Normocephalic. EYES: No scleral icterus. No injection or drainage. NECK: Supple, trachea midline. No JVD or lymphadenopathy. CARDIOVASCULAR: Regular rate and rhythm without murmurs, gallops, or rubs. RESPIRATORY: Breath sounds equal bilaterally. No accessory muscle use. GASTROINTESTINAL: Abdomen soft, non-tender, nondistended. MUSCULOSKELETAL: No cyanosis, or edema. BACK: Nontender without obvious deformity. No CVA tenderness. A/P Problem List: (1) New onset a-fib ICD Code: I48.91 Status: Acute (2) NSTEMI (non-ST elevated myocardial infarction) ICD Code: I21.4 Status: Acute (3) CAD (coronary artery disease) ICD Code: I25.10 Status: Chronic (4) Chest pain ICD Code: R07.9 Status: Acute (5) Elevated troponin ICD Code: R74.8 Status: Acute (6) Hypertension ICD Code: I10 Status: Chronic (7) Hyperlipidemia ICD Code: E78.5 Status: Chronic Assessment and Plan 81-year-old male with history of CAD s/p stents x3, hypertension, hyperlipidemia , pericarditis, PUD, presents with acute onset of chest pain and shortness of breath today 03/19/17. Atrial Fibrillation with RVR: EKG reviewed, shows afib w/RVR, ventricular rate 136. S/p IV Cardizem 20mg x1. -Discussed with Dr. Mehta, start metoprolol 25mg q8h -Started anticoagulation with IV heparin drip, plan to transition to Xarelto. [id number] score 3 (Age, HTN). -Monitor on telemetry -Cardiology consulted, patient known to Dr. Mehta NSTEMI: suspect secondary to ACS vs afib RVR, patient with complaints of chest pain and T wave abnormality in lateral leads. Hx of Cardiac Catheterization by Dr. Yusuf, stent placed at right coronary artery. Multivessel Coronary artery disease -Troponins elevated consistent with NSTEMI. -given aspirin, statin, IV morphine prn, O2 as needed -on Heparin drip as above -Patient underwent cardiac cath this morning, shows multivessel coronary artery disease. Cardiothoracic surgery consulted. Hypertension: chronic -hold patient's propranolol for now as BP controlled on cardizem drip -Currently normotensive. Hyperlipidemia: Lipid panel October2015 wnl, not on statin -Will start patient on Lipitor 80mg QHS. DVT Prophylaxis: on Heparin drip Brenden Funes DO Mar 20, 2017 09:07
[2017-03-20] MEDS: METOPROLOL TARTRATE 25 MG TAB PO SCH ×2 (09:28→20:49)
[2017-03-20] MEDS: PANTOPRAZOLE SOD 40 MG DELAYED RELEASE TAB PO SCH (09:28)
[2017-03-20] MEDS: DOCUSATE SODIUM 50 MG/SENNA 8.6 MG TAB PO SCH ×2 (09:28→20:49)
[2017-03-20] MEDS: ASPIRIN 81 MG CHEW TAB CHEW SCH (09:28)
[2017-03-20] MEDS ORDERED: HEPARIN-NS/PF INJ 500 ML ONE (10:50)
[2017-03-20] MEDS ORDERED: MIDAZOLAM HCL 2 MG/2 ML VIAL ONE (10:58)
[2017-03-20] MEDS ORDERED: VERAPAMIL HCL 5 MG/2 ML VIAL ONE (10:59)
[2017-03-20] MEDS ORDERED: NITROGLYCERIN INJ 5 ML ONE (10:59)
[2017-03-20] MEDS ORDERED: HEPARIN SODIUM - IV 10,000 UNITS/10 ML VIAL ONE (10:59)
--- NOTE | 2017-03-20 11:54 | CATHPROC ---
[employer] HIS Report Study Information Study Number Admission Scheduled Start Study Start [id number] Mar 19 2017 2:19PM 03/20/2017 Mar 20 2017 10:28AM [place] [facility] Cardiac Catheterization Admit Source Facility Department Other [facility] - Datastage Developer Physician and Clinical Staff Initial Venkata Contreras Material Control SpecialistTrent Steven,DEEPALI Material Control Specialist Angie Roldan RN Other cathlab, cathlab Recorder Chris Curran RCIS(BS) Scrub Nunu Hernandez RT(R) (BS) Procedures Performed Procedure Location (Site) Vessel Name Coronary Angiograms LCA Left Coronary Coronary Angiograms RCA Right Coronary Equipment Time Tire Fabricator Description Size Mfg Part Number Used/Scraped TRANSDUCER, TRUWAVE [id number] 10:30 GRAY HILARIO * Used W/STOCKCOCK *[id number] *[id number] *[id number] 10:30 Harir PACK, CCL CUSTOM * Used *[id number] 10:30 Harir SUPPORT, ARTERIAL ADULT 05502 *[id number] Used BAND, RADIAL COMPRESSION TR [id number] 11:40 [employer] MEDICAL 29CM Used LARGE 29 *[id number] 10:30 [employer] WIRE, EXCHANGE 260CM 3MMJ 260CM Used *[id number] 10:30 [facility] MANIFOLD, 4 PORT * Used *[id number] 10:30 [employer] OMNIPAQUE, 350 MG, 150ML 150ML [id number] Used [id number] 10:30 [employer]on BLANKET,WARM AIR CCL * Used *[id number] SHEATH, FR6 TRANSRADIAL [id number] 10:30 [employer] FR 6 Used SLENDER 10CM *[id number] History: Current Medications Medication Dosage/Unit Route Frequency Last Date/Time Taken ASA Beta Kymberly History: Allergies Allergy Reaction No Known Allergies History: Risk Factors Family History of Hypertension Dyslipidemia Previous FL Previous Heart Failure Premature CAD Yes Yes Yes Yes No Prior Valve Prior PCI Prior PCIDate Prior CABG Surgery No Yes 08/03/2015 No Cerebrovascular Peripheral Artery Chronic Lung On Dialysis Diabetes Disease Disease Disease No No No No No History: Symptoms/Diagnosis Selection Items Chest pain History: CV Disease Selection Items Known CAD History: Stress Tests Stress or Imaging Studies Performed No History: Other Disease Selection Items CAD HTN History: FL/CV Data Previous Cath Date 08/03/2015 History: Other Current Smoker Method Quit Packs a Day Years Used Pack Years No Cigarettes 40 Years Ago 1 20 20 Labs Hgb (g/dl) Hct (%) WBC (l/cumm) Platelets (thousands) 11.60-17.00 35.00-51.00 4.00-11.00 150.00-450.00 16.2 49.1 9.2 238 Glucose (mg/dl) BUN (mg/dl) Creatinine (mg/dl) BUN:Creatinine (1:x) 74.00-106.00 7.00-18.00 0.50-1.30 10.00-20.00 146 21 1.3 16.2 Na (meq/l) K (meq/l) 136.00-145.00 3.50-5.10 138 4 INR (PTT:PT) 0.90-1.10 1 Troponin I (ng/ml) CPK (u/l) CPK-MB (ng/ML) 0.02-0.05 26.00-308.00 0.50-3.60 0.46 219 10.8 Medication Medication Total Dose (Bolus/Oral) Medication Total Dosage/Unit 1% XYLOCAINE 3 mL FENTANYL 25 mcg OXYGEN 2 l/min RADIAL COCKTAIL 5 mL (Bolus) VERSED 0.5 mg Medications (Bolus/Oral) Medication Time Given Dosage/Unit Administered By Reason VERSED 03/20/2017 11:11:38 AM 0.5 mg Angie Roldan 0.5 mg VERSED given in lab by Angie Roldan, RN in Left Antecubital via Peripheral IV. Ordered by Venkata Rivas. FENTANYL 03/20/2017 11:12:02 AM 25 mcg Angie Roldan 25 mcg FENTANYL given in lab by Angie Roldan, RN in Left Antecubital via Peripheral IV. Ordered by Venkata Mehta. 1% XYLOCAINE 03/20/2017 11:16:50 AM 3 mL Venkata Mehta 3 mL 1% XYLOCAINE given in lab by Venkata Mehta in Right Radial via Subcutaneous. Ntg 200mcg Verapamil 2.5mg Heparin RADIAL COCKTAIL 03/20/2017 11:19:04 AM 5 mL (Bolus) Venkata Mehta 2000U 5 mL (Bolus) RADIAL COCKTAIL given in lab by Venkata Mehta in Right Radial via Radial. Using [Christen ution Name]. Reason: Ntg 200mcg Verapamil 2.5mg Heparin 5100U. OXYGEN 03/20/2017 11:21:39 AM 2 l/min Angie Roldan 2 l/min OXYGEN given in lab by Angie Roldan, RN via Nasal. Ordered by Venkata Mehta. Medication (Drip) Medication Time Given Dosage/Unit Concentration/Unit Diluent (ml) Solutio n IV Solutions 03/20/2017 10:40:30 AM 0 mL (IV) 500 NaCl .9 Patient arrived on IV Solutions given by mariannalabwon in Left Antecubital via Peripheral IV. Pump /Drip Flow = 20 ml/hr using NaCl .9. Ordered by Venkata Mehta. Initial Case Assessment Cardiovascular HR Rhythm NIBP Chest Pain 86 sinus 188/115 0 Edema Present Skin color Skin None Normal Warm Dry Circulatory - Right Pulses Dorsalis Pedis Femoral 3 1 Scale (0,1,2,3,4,d) Circulatory - Left Pulses Dorsalis Pedis Femoral 3 1 Scale (0,1,2,3,4,d) Neurological State Oriented to time-place- Alert Moves all extremities person Respiration - General Respiration Rate SpO2 (%) (B/min) 15 97 Chronological Log Time Study Chronological Log 10:36:59 Patient arrived via Bed. 10:36:59 Patient Name, D.O.B, / Armband Verified By R.N. 10:37:00 Consent signed by the physician and the patient and verified by the Datastage Developer staff. 10:37:00 Pre-op and post- op instructions given; patient acknowledges understanding of instructions. 10:37:01 Verbal Stimulation=2 Physical Stimulation=2 Airway=2 Respiration=2 TOTAL=8. (0=absent, 1=li mited, 2=present) 10:37:02 Presedation assessment performed by Datastage Developer RN. 10:37:03 Immediate Presedation assesment performed by physician. 10:37:03 Patient has been NPO for More than 6Hrs. 10:37:04 Skin Breakdown- none per patient 10:37:04 Patient Warmer Placed on the Table. 10:37:07 Sandra Prominences Protected 10:37:07 A # 20 IV was noted in the Antecubital (left). Grade = 0 10:37:08 History and physical on the chart or being dictated. Patient arrived on IV Solutions given by cathlab, cathlab in Left Antecubital via Peripheral IV . Pump/Drip Flow = 20 10:40:30 ml/hr using NaCl .9. Ordered by Venkata Mehta. Vitals capture started with the following parameters, Patient=Adult, Interval=3 min, Initial Pr yoadhz=625 mmHg, 10:49:24 Deflation Rate=5 mmHg, Cuff placed on Right Arm Assessment: Initial Case, HR=86 BPM, Rhythm=sinus, XTHN=358/115 mmhg, Chest Pain=0, Edema=None, Color=Normal, Skin = Warm, Dry Right Pulses: Torsten Ped=3, Femoral=1 10:49:25 Left Pulses: Torsten Ped=3, Femoral=1 Neurological: State=Alert, Ox3, PRINGLE Respiration: Resp=15 B/min, SpO2=97 % 10:50:03 Reference ECG taken 10:50:26 HR=85 bpm, OXGY=156/115 mmhg, SpO2=96.0 %, Resp=16 B/min, Pain=0, Daniel=10, Lares=2 10:53:04 HR=88 bpm, KSFU=630/99 mmhg, SpO2=96.0 %, Resp=15 B/min, Pain=0, Daniel=10, Lares=2 10:53:58 Right Radial and groin(s) prepped with 2% chlorhexidine, and with a 3 min. waiting time. 10:56:00 HR=82 bpm, JKIC=681/99 mmhg, SpO2=96.0 %, Resp=16 B/min, Pain=0, Daniel=10, Lares=2 10:58:48 MD paged 10:59:02 HR=92 bpm, RDZF=795/108 mmhg, SpO2=96.0 %, Resp=16 B/min 11:02:02 HR=85 bpm, AWPB=068/111 mmhg, SpO2=96.0 %, Resp=16 B/min, Pain=0, Daniel=10, Lares=2 11:03:22 Pressure channel 1 zeroed. 11:04:31 MD responded 11:05:05 HR=79 bpm, ZUXM=515/85 mmhg, SpO2=96.0 %, Resp=19 B/min 11:08:05 HR=89 bpm, UFFF=423/86 mmhg, SpO2=95.0 %, Resp=17 B/min, Pain=0, Daniel=10, Lares=2 11:08:52 MD arrived. 11:11:03 HR=85 bpm, EOPE=016/108 mmhg, SpO2=96.0 %, Resp=19 B/min, Pain=0, Daniel=10, Lares=2 11:11:03 Contrast Scanned 11:11:04 Immediate Presedation assesment performed by physician. 11:11:38 0.5 mg VERSED given in lab by Angie Roldan, RN in Left Antecubital via Peripheral IV. Ord ered by Venkata Mehta. 25 mcg FENTANYL given in lab by Angie Roldan, DEEPALI in Left Antecubital via Peripheral IV. Order ed by Tyson, 11:12:02 Venkata. 11:14:05 HR=89 bpm, XYEY=306/93 mmhg, SpO2=96.0 %, Resp=19 B/min, Pain=0, Daniel=10, Lares=2 Time Out. Correct patient, correct procedure,correct physician, ,power injector loaded or not l oaded with contrast with 11:16:15 surgical team present. Time Out Concurred by MD, individual staff and LABORER/KEY MAN in procedure 11:16:43 Case Start 11:16:45 Verbal Stimulation=2 Physical Stimulation=2 Airway=2 Respiration=2 TOTAL=8. (0=absent, 1=li mited, 2=present) 11:16:50 3 mL 1% XYLOCAINE given in lab by Venkata Mehta in Right Radial via Subcutaneous. 11:17:10 HR=89 bpm, UOOB=923/88 mmhg, SpO2=96.0 %, Resp=14 B/min, Pain=0, Daniel=10, Lares=2 11:18:48 Access site was Right Radial Artery. A SHEATH, FR6 TRANSRADIAL SLENDER 10CM FR 6 was advanced into the Radial (right) using the Perc utaneous 11:18:54 technique. 5 mL (Bolus) RADIAL COCKTAIL given in lab by Venkata Mehta in Right Radial via Radial. Sully cooper [Solution Name]. 11:19:04 Reason: Ntg 200mcg Verapamil 2.5mg Heparin 5100U. 11:19:58 HR=86 bpm, LLNM=723/93 mmhg, SpO2=95.0 %, Resp=15 B/min, Pain=0, Daniel=10, Lares=2 A JR 4.0 INFINITI CATHETER FR 5 was advanced over a wire. OMNIPAQUE, 350 MG, 150ML 150ML was us ed for 11:20:05 injections. 11:21:39 2 l/min OXYGEN given in lab by Angie Roldan RN via Nasal. Ordered by Venkata Mehta. Recorded Pressure: LV, HR=84, Condition=Condition 1 11:21:59 (Left Ventricle) LV 96/4/8 Recorded Pressure: LV, Ao, HR=90, Condition=Condition 1 11:22:15 (Left Ventricle) LV 98/28/13, (Aorta) Ao 94/61/76 11:22:53 The RCA was injected and visualized at various angles. OMNIPAQUE, 350 MG, 150ML 150ML used . 11:23:04 HR=90 bpm, VMOO=522/74 mmhg, SpO2=94.0 %, Resp=20 B/min, Pain=0, Daniel=10, Lares=2 Recorded Pressure: Ao, HR=86, Condition=Condition 1 11:23:28 (Aorta) Ao 94/71/82 After removing the current catheter a JL 3.5 INFINITI CATHETER FR 5 was advanced over a WIRE, EXCHANGE 260CM 11:24:45 3MMJ 260CM. 11:26:00 HR=87 bpm, JNYS=899/80 mmhg, SpO2=93.0 %, Resp=15 B/min, Pain=0, Daniel=10, Lares=2 11:29:04 HR=87 bpm, WSAM=979/68 mmhg, SpO2=94.0 %, Resp=15 B/min, Pain=0, Daniel=10, Lares=2 11:31:19 The LCA was injected and visualized at various angles. OMNIPAQUE, 350 MG, 150ML 150ML use d. 11:32:03 HR=79 bpm, AFAE=058/88 mmhg, SpO2=94.0 %, Resp=18 B/min, Pain=0, Daniel=10, Lares=2 11:35:46 HR=84 bpm, JJCY=375/92 mmhg, SpO2=95.0 %, Resp=19 B/min, Pain=0, Daniel=10, Lares=2 11:37:12 Catheter was removed 11:38:09 HR=80 bpm, ADOT=641/97 mmhg, SpO2=95.0 %, Resp=19 B/min, Pain=0, Daniel=10, Lares=2 11:38:50 Sheath removed; pressure applied to access site. Radial Compression Device Used. 9 mLs of air placed in BAND, RADIAL COMPRESSION TR LARGE 29 29 CM. Affected 11:38:53 hand ~O2 SATURATION~ % O2 saturation. 11:39:38 Case End 11:39:46 No case complications noted. 11:39:52 Bedside Report will be given. 11:40:03 Patient moved to stretcher 11:41:05 HR=84 bpm, JPKZ=042/105 mmhg, SpO2=95.0 %, Resp=23 B/min, Pain=0, Daniel=10, Lares=2 11:44:08 HR=89 bpm, AGND=966/87 mmhg, SpO2=95.0 %, Resp=15 B/min, Pain=0, Daniel=10, Lares=2 11:47:12 HR=96 bpm, RVUQ=537/92 mmhg, SpO2=95.0 %, Resp=19 B/min, Pain=0, Daniel=10, Lares=2 End Study - Contrast Media Used In Study Contrast Total Opened (mL) Total Used (mL) Total Wasted (mL) Omnipaque 40 40 0 End Study - Maximum Contrast Load Max Contrast Load (mL) 492.3 End Study - Radiation Exposure Fluoro Time (minutes) 4.7 End Study - Patient Disposition Complications Transferred To Interventional Outcome No Telemetry Bed No attempt made
[2017-03-20] MEDS ORDERED: IOHEXOL 350 MG/ML 100 ML BTL (for Cath Lab) OTHER ONE (12:13)
--- NOTE | 2017-03-20 12:45 | PD.CARD.PN ---
Subjective Subjective Remarks Post cath, no complaints Objective Medications Current Medications Medications (Trade) Dose Ordered Sig/Makayla Route Start Time Stop Time Status Last Admin (Heparin Inj) 5,000 units UNSCH PRN IV 03/19/17 20:00 Heparin Sodium (Porcine) 2500 units 2,500 units UNSCH PRN IV 03/19/17 20:00 03/20/17 05:50 (Heparin-D5W Inj) 250 ml @ 0 mls/hr TITRATE IV 03/19/17 14:00 03/19/17 15:03 (NS Flush) 2 ml UNSCH PRN IV FLUSH 03/19/17 14:30 (NS Flush) 2 ml BID IV FLUSH 03/19/17 21:00 03/19/17 20:57 (Tylenol) 650 mg Q4H PRN PO 03/19/17 14:30 (Zofran Inj) 4 mg Q6H PRN IVP 03/19/17 14:30 (Narcan Inj) 0.4 mg UNSCH PRN IV 03/19/17 14:30 (Brenda-Colace) 1 tab BID PO 03/19/17 21:00 03/20/17 09:28 (Milk Of Magnesia Liq) 30 ml Q12H PRN PO 03/19/17 14:30 (Senokot) 17.2 mg Q12H PRN PO 03/19/17 14:30 (Dulcolax Supp) 10 mg DAILY PRN RECTAL 03/19/17 14:30 (Lactulose Liq) 30 ml DAILY PRN PO 03/19/17 14:30 (Protonix) 40 mg DAILY PO 03/20/17 09:00 03/20/17 09:28 (Morphine Inj) 2 mg Q3H PRN IV PUSH 03/19/17 15:30 (Lopressor) 25 mg BID PO 03/20/17 09:00 03/20/17 09:28 (Aspirin Chew) 81 mg DAILY CHEW 03/20/17 09:00 03/20/17 09:28 Vital Signs / I&O Vital Signs Date Time Temp Pulse Resp B/P Pulse Ox O2 Delivery O2 Flow Rate FiO2 03/20/17 12:12 72 03/20/17 10:00 92 03/20/17 09:00 84 03/20/17 07:00 89 03/20/17 06:00 102 03/20/17 05:00 100 03/20/17 04:00 90 03/20/17 03:30 97.7 80 16 129/85 96 03/20/17 03:00 97 03/20/17 02:00 92 03/20/17 01:00 94 03/20/17 00:00 97.9 75 18 120/72 96 03/20/17 00:00 86 03/19/17 23:00 120 03/19/17 22:23 97 03/19/17 22:00 98 03/19/17 21:15 83 03/19/17 21:15 97.8 77 18 141/96 96 03/19/17 20:49 87 18 138/68 97 Room Air 03/19/17 19:38 86 18 138/67 97 Room Air 03/19/17 18:29 95 19 126/65 95 Room Air 03/19/17 18:00 86 19 142/62 96 Room Air 03/19/17 17:35 119 21 167/79 96 Room Air I/O 03/19/17 03/19/17 03/19/17 03/20/17 03/20/17 03/20/17 07:00 15:00 23:00 07:00 15:00 23:00 Intake Total 389 ml Output Total 400 ml Balance -11 ml Intake Oral 240 ml IV Total 149 ml Output Urine Total 400 ml # Voids 1 # Bowel Movements 2 Physical Exam GENERAL: NAD, AAOx3 SKIN: Warm and dry. HEAD: Atraumatic. Normocephalic. EYES: Pupils equal and round. No scleral icterus. No injection or drainage. ENT: No nasal bleeding or discharge. Mucous membranes pink and moist. NECK: Trachea midline. No JVD. CARDIOVASCULAR: Irregularly irregular RESPIRATORY: No accessory muscle use. Clear to auscultation. Breath sounds equal bilaterally. GASTROINTESTINAL: Abdomen soft, non-tender, nondistended. Hepatic and splenic margins not palpable. MUSCULOSKELETAL: Extremities without clubbing, cyanosis, or edema. No obvious deformities. Right radial with TR band NEUROLOGICAL: Awake and alert. No obvious cranial nerve deficits. Motor grossly within normal limits. Five out of 5 muscle strength in the arms and legs. Normal speech. PSYCHIATRIC: Appropriate mood and affect; insight and judgment normal. Laboratory Laboratory Tests Test 03/19/17 03/19/17 03/20/17/18/17 18:04 20:45 00:55 05:21 Troponin I 0.90 NG/ML 0.46 NG/ML Activated Partial 35.2 SEC 35.1 SEC Thromboplast Time Sodium Level 138 MEQ/L Potassium Level 4.0 MEQ/L Chloride Level 104 MEQ/L Carbon Dioxide Level 22.6 MEQ/L Anion Gap 11 MEQ/L Blood Urea Nitrogen 21 MG/DL Creatinine 1.32 MG/DL Estimat Glomerular Filtration 52 ML/MIN Rate Random Glucose 146 MG/DL Calcium Level 8.1 MG/DL Total Bilirubin 0.5 MG/DL Aspartate Amino Transf 42 U/L (AST/SGOT) Alanine Aminotransferase 36 U/L (ALT/SGPT) Alkaline Phosphatase 47 U/L Total Protein 6.5 GM/DL Albumin 3.1 GM/DL Triglycerides Level 1381 MG/DL Cholesterol Level 214 MG/DL LDL Cholesterol MG/DL HDL Cholesterol 32.0 MG/DL Cholesterol/HDL Ratio 6.68 RATIO Assessment and Plan Problem List: (1) NSTEMI (non-ST elevated myocardial infarction) (2) Chest pain (3) CAD (coronary artery disease) (4) Hypertension (5) Hyperlipidemia (6) New onset a-fib Assessment and Plan 1) NSTEMI 2) MVCAD with 100% RCA, 100% LAD, LCx 80% 3) Consideration of CT surgery Await EF on 2D echo 4) Heparin gtt 1 hour after TR band removed 5) BB for heart rate control 6) Discussed with patient and family, as well as Venkata Colon DO Mar 20, 2017 12:45
[2017-03-20] MEDS ORDERED: methylPREDNISolone SOD SUCC 125 MG/2 ML VIAL ONE (12:59)
[2017-03-20 13:54] LABS: APTT (PATIENT) 63.3 SEC (24.3-30.1)
--- NOTE | 2017-03-20 14:11 | EKG ---
Date Performed: 03/19/2017 Time Performed: 11:31:12 PTAGE: 81 years EKG: ATRIAL FIBRILLATION WITH RAPID VENTRICULAR RESPONSE INFERIOR MYOCARDIAL INFARCTION MODERATE T-WAVE ABNORMALITY, CONSIDER LATERAL ISCHEMIA Compared to prior tracing atrial fibrillation with rap id response has replaced Sinus rhythm , nonspecific T wave changes are now present ABNORMAL ECG PREVIOUS TRACING : 10/05/2015 19.03 DOCTOR: Raoul Queen Interpretating Date/Time 03/20/2017 14:10:49
[2017-03-20] MEDS ORDERED: INSULIN REGULAR (IV INFUSION) 100 UNITS in SODIUM CHLORIDE 0.9% INJ 100 ML IV SCH (14:15)
[2017-03-20] MEDS ORDERED: METOPROLOL TARTRATE 25 MG TAB PO SCH (14:15)
[2017-03-20] MEDS ORDERED: CEFAZOLIN INJ 500 MG in SODIUM CHLORIDE 0.9% IRR BTL 500 ML IRRIGATION SCH (14:15)
[2017-03-20] MEDS ORDERED: SODIUM CHLORIDE 0.9% FLUSH 10 ML FLUSH IV FLUSH PRN (14:15)
[2017-03-20] MEDS ORDERED: CHLORHEXIDINE GLUCONATE 4% SOLN 120 ML BTL TOPICAL SCH (14:15)
[2017-03-20] MEDS ORDERED: PAPAVERINE INJ 60 MG, NITROGLYCERIN INJ 100 MCG, DILTIAZEM INJ 100 MG in SODIUM CHLORID... IRRIGATION SCH (14:15)
[2017-03-20] MEDS ORDERED: ceFAZolin 2 GM PREMIX 50 ML IV SCH (14:15)
--- NOTE | 2017-03-20 14:46 | EKG ---
Date Performed: 03/19/2017 Time Performed: 18:19:22 PTAGE: 81 years EKG: ATRIAL FIBRILLATION WITH RAPID VENTRICULAR RESPONSE INFERIOR MYOCARDIAL INFARCTION ABNORMAL ECG PREVIOUS TRACING : 03/19/2017 11.31 Since previous tracing, no significant change noted DOCTOR: Raoul Queen Interpretating Date/Time 03/20/2017 14:45:49
--- NOTE | 2017-03-20 14:46 | EKG ---
Date Performed: 03/20/2017 Time Performed: 02:52:14 PTAGE: 81 years EKG: Atrial fibrillation Inferior infarct - age undetermined Lateral ST-T changes may be due to myocardial ischemia Abnormal ECG PREVIOUS TRACING : 03/19/2017 18.19 Since previous tracing, no significant change noted DOCTOR: Raoul Queen Interpretating Date/Time 03/20/2017 14:45:37
--- NOTE | 2017-03-20 18:08 | RADRPT ---
EXAM DATE/TIME: 03/20/2017 17:13 [facility] COMPARISON: No previous studies available for comparison. INDICATIONS : Pre-op cardiac surgery. MEDICAL HISTORY : Hypercholesterolemia. Hypertension. Coronary artery disease. Myocardial infarctin. Atrial fibrilla tion. Carcinoma, melanoma. SURGICAL HISTORY : Cardiac catheterization. Cardiac stent. ENCOUNTER: Initial ACUITY: 1 day PAIN SCORE: 0/10 LOCATION: Bilateral legs. TECHNIQUE: Venous ultrasound of the left and right leg was performed from the inguinal ligament to the proximal calf. Real-time, color Doppler and spectral tracing, compression and augmentation techniques were us ed. FINDINGS: RIGHT LEG: There is normal compressibility of the deep venous system from the inguinal region to the proximal ca lf. No echogenic clot is seen in the lumen of the common femoral, femoral, popliteal, and posterior tibial veins. There is a normal response of the venous system to proximal and distal augmentation an d respiration. LEFT LEG: There is normal compressibility of the deep venous system from the inguinal region to the proximal ca lf. No echogenic clot is seen in the lumen of the common femoral, femoral, popliteal, and posterior tibial veins. There is a normal response of the venous system to proximal and distal augmentation an d respiration. CONCLUSION: No DVT of either lower extremity. Pablito Parker MD on March 20, 2017 at 18:07 Board Certified Radiologist. This report was verified electronically.
--- NOTE | 2017-03-20 18:49 | MB ---
cc: MONIKA WATKINS MD DATE OF CONSULTATION 03/20/17 1936 HISTORY OF PRESENT ILLNESS An 81-year-old male who was being followed by Dr. Mehta, was seen in the past by Dr. Yusuf for history of atrial fibrillation and also coronary disease. The patient was seen by Dr. Mehta and has chronic atrial fibrillation. They wanted to start him on some Eliquis, but he was going to have a dental procedure yesterday so it had not been started yet. Then I guess they were going to change it to Xarelto because of the expense. He had been on aspirin for anticoagulation. He developed chest pain, woke up yesterday morning with shortness of breath and heaviness in his chest that he says felt like he had in the past. He also knew at that time that he was in atrial fibrillation. He presented to the emergency department. Blood pressure was 165/84, heart rate was 113. EKG showed atrial fibrillation rate of 136 with RVR. Some Q-waves in the inferior leads, also some lateral nonspecific ST changes. His troponins were elevated, 0.64, 0.90, 0.46. He was ruled in for a non STEMI. He underwent cardiac cath today by Dr. Mehta that showed left main disease of 20%, proximal LAD 30%, mid distal 100%, diagonal 30%, circumflex 80%, OM was 70% and the RCA was 100% stenosed. Echocardiogram has been done, results are still pending, to identify the STS risk score. PAST MEDICAL HISTORY 1. Coronary artery disease, 2. Hypertension, 3. Hyperlipidemia, 4. Obesity with BMI of 37.5, 5. Essential tremors 6. History of melanoma 7. Peptic ulcer disease. 8. History of AL x2 9. History of pericarditis following an AL in 2016 10. Paroxysmal atrial fibrillation PAST SURGICAL HISTORY 1. Cardiac catheterization with history of three stents. Most recent was on October 03, 2015. He went underwent PCI of his RCA with a drug-eluting stent 2. Melanoma resection from his right arm 1994, 3. Tonsillectomy. ALLERGIES No known allergies. MEDICATIONS Home include 1. Inderal 2. Protonix. 3. Aspirin 81 mg daily 4. Ambien. FAMILY HISTORY Mother had a history of an AL, CVA, at the age of 86. Father had an AL and at the age of 79. SOCIAL HISTORY The patient smoked for about five years, quit 40 years ago. No alcohol. 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 Per the , he is very inactive. REVIEW OF SYSTEMS GENERAL: No night sweats, fever, heat and cold intolerance. SKIN: No psoriasis, itching or hives. HEENT: No blurred vision, hearing loss. RESPIRATORY: Positive for shortness of breath. No cough. CARDIOVASCULAR: As above in HPI. GASTROINTESTINAL: No diarrhea, vomiting. GENITOURINARY: No burning, frequency, urgency ADMINISTRATIVE SERVICES MANAGER: No history of TIA, CVA, seizure disorder, Endocrine: No history of diabetes or hypothyroidism. PHYSICAL EXAMINATION VITAL SIGNS: Blood pressure 130/80, heart rate of 80, temperature max 97.5, O2 sat 96 on room air. GENERAL: Patient is awake, alert in no acute distress. HEENT: head is normocephalic, atraumatic. Pupils equal and reactive. Oral mucosa pink, moist. NECK: Supple. No JVD. CARDIAC: Heart sounds S1-S2, irregular rate and rhythm. No audible rubs or gallops. LUNGS: Diminished in the bases with a faint expiratory wheeze. ABDOMEN: Soft, obese, nontender. EXTREMITIES: Reveal no cyanosis, clubbing or edema with good distal pulses. CARDIOLOGY STUDIES The patient had a carotid ultrasound as an outpatient March 05, 2017 which showed no evidence of hemodynamically significant lesions. EKG as above. He underwent pulmonary function testing which showed an FEV-1 of 1.68. IMAGING STUDIES Chest x-ray showed no acute process. Ultrasound of the lower extremities are pending. LABORATORY DATA Hemoglobin A1c pending. MRSA screening pending. IMPRESSION AND PLAN 1. This is an 81-year-old male patient Dr. Mehta and Dr. Terry Carbajal who presented with non STEMI and found to have multi-vessel disease with prior history of AL and coronary disease and stenting x3. The patient has had a prior echo in 2016 which showed at that time an EF of 60%. His echo today, results are pending for STS risk scoring. 2. Atrial fibrillation. The patient apparently was to start on Eliquis, but due to the cost he was going to start on Xarelto. He has not taken Eliquis in the past. Per the patient, he did not start it. He has only been on aspirin 81 mg. He is continued at this time on heparin drip. He was given initially IV dose of Cardizem. Rate is now controlled. He will need to be on long-term anticoagulation postoperatively. 3. He has history of essential tremors. He had been on Inderal for this. Currently now on metoprolol. The cardiac films have been evaluated by Dr. Monika Watkins. Plan will be for coronary artery bypass grafting three to four on March 23. The patient is agreeable to proceed. STS data will be documented once we receive the results of his 2-D echocardiogram. Dictated by KERLINE Garcia Monika MCMILLAN/ /5:16 PM /8:02 AM
--- NOTE | 2017-03-20 19:08 | RADRPT ---
EXAM DATE/TIME: 03/20/2017 17:24 [facility] COMPARISON: US LEG BILATERAL VENOUS DOPPLER, March 20, 2017, 17:13. INDICATIONS : Pre-op cardiac surgery. MEDICAL HISTORY : Hypercholesterolemia. Hypertension. Myocardial infarction. Atrial fibrillation. Coronary artery di sease. Carcinoma, melanoma. Blood transfusion. SURGICAL HISTORY : Cardiac catheterization. Cardiac stent placement. ENCOUNTER: Initial ACUITY: 1 day PAIN SCORE: 0/10 LOCATION: Bilateral legs. GREATER SAPHENOUS VEIN THIGH: PROXIMAL: Right 5 mm Left 5 mm MID: Right 4 mm Left 3 mm DISTAL: Right 3 mm Left 4 mm CALF: PROXIMAL: Right 2 mm Left 3 mm MID: Right Non-visualized Left 3 mm DISTAL: Right Non-visualized Left 3 mm FINDINGS: The venous system of the lower extremities are patent by color Doppler imaging. Measurements of the leg veins (in mm) are listed above. CONCLUSION: Venous mapping of the lower extremities as above. Pablito Parker MD on March 20, 2017 at 19:05 Board Certified Radiologist. This report was verified electronically.
--- NOTE | 2017-03-20 20:02 | ECHRPT ---
Indication: NSTEMI CONCLUSIONS Technically difficult study In limited views, the left ventricular systolic function is severely reduced with an estimated eject ion fraction in the range of 25-30%. Wall thickness is measured at the upper limits of normal. Moderately dilated left ventricle. There was limited left ventricular wall motion assessment due to poor endocardial visualization. Kauyt-rz-vqgs mitral valve regurgitation. There is trace tricuspid valve regurgitation. Difficult to determine true ejection fraction on this study, consider repeating with contrast BP: 129 / 85 HR: 80 Rhythm: Atrial fibrillation MEASUREMENTS (Male / Female) Normal Values Technical Quality:Very technically difficult study 2D ECHO LV Diastolic Diameter PLAX 3.6 cm 4.2 - 5.9 / 3.9 - 5.3 cm IVS Diastolic Thickness 1.0 cm 0.6 - 1.0 / 0.6 - 0.9 cm LVPW Diastolic Thickness 1.0 cm 0.6 - 1.0 / 0.6 - 0.9 cm LV Relative Wall Thickness 0.6 LVOT Diameter 1.8 cm Aortic Root Diameter 2.3 cm LA Systolic Diameter LX 3.2 cm 3.0 - 4.0 / 2.7 - 3.8 cm DOPPLER AV Peak Velocity 111.7 cm/s AV Peak Gradient 5.0 mmHg AV Mean Gradient 2.5 mmHg AV Velocity Time Integral 14.2 cm LVOT Peak Velocity 84.5 cm/s LVOT Peak Gradient 2.9 mmHg LVOT Velocity Time Integral 12.0 cm LVOT Cardiac Index 1147.0 cm/minm AV Area Cont Eq vti 2.2 cm AV Area Cont Eq pk 1.9 cm Mitral E Point Velocity 93.1 cm/s LV E' Lateral Velocity 11.6 cm/s Mitral E to LV E' Lateral Ratio 8.0 LV E' Septal Velocity 3.4 cm/s Mitral E to LV E' Septal Ratio 27.3 TR Peak Velocity 208.0 cm/s TR Peak Gradient 17.3 mmHg PV Peak Velocity 138.0 cm/s PV Peak Gradient 7.6 mmHg FINDINGS LEFT VENTRICLE Moderately dilated left ventricle. Wall thickness is measured at the upper limits of normal. In limited views, the left ventricular systolic function is severely reduced with an estimated eject ion fraction in the range of 25-30%. There was limited left ventricular wall motion assessment due to poor endocardial visualization. This study was not technically sufficient to allow for evaluation of left ventricular diastolic func tion. RIGHT VENTRICLE The right ventricular systoilc function is normal. LEFT ATRIUM The left atrial size is lhcu-hc-fuhihpjhqa dilated. RIGHT ATRIUM The right atrial size is mildly dilated. ATRIAL SEPTUM The interatrial septum not well visualized. AORTA The aortic root and proximal ascending aorta are not well visualized. MITRAL VALVE Structurally normal mitral valve. Nvnyn-qe-vgbf mitral valve regurgitation. No mitral valve stenosis. AORTIC VALVE Aortic valve sclerosis is present. No aortic valve regurgitation. No aortic valve stenosis. TRICUSPID VALVE Structurally normal tricuspid valve. There is trace tricuspid valve regurgitation. Normal estimated pulmonary pressures. The tricuspid valve is not well visualized. PULMONARY VALVE The pulmonary valve is not well visualized. VESSELS The inferior vena cava was not well visualized. PERICARDIUM No pericardial effusion. Venkata Mehta DO Edited by: Jumo CV .Net Architect (Electronically Signed) Final Date:20 March 2017 20:01 Amended: 24 March 2017 11:10
[2017-03-20] MEDS: ATORVASTATIN 80 MG TAB PO SCH (20:49)
[2017-03-20 22:00] LABS: APTT (PATIENT) 31.3 SEC (24.3-30.1)
[2017-03-20] MEDS ORDERED: diphenhydrAMINE HCL 25 MG CAP PO ONE (23:00)
--- NOTE | 2017-03-20 23:50 | MA ---
cc: VENKATA SCHUSTER DO DATE OF PROCEDURE March 20, 2017 PROCEDURE Left heart catheterization, coronary angiogram, moderate sedation 28 minutes. PREPROCEDURE DIAGNOSIS NSTEMI, chest pain concerning for coronary insufficiency. 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 MEDICATIONS 1. Versed 0.5 milligrams. 2. Fentanyl 25 micrograms. 3. Heparin 5100 units. 4. Verapamil 2.5 milligrams. 5. Nitro 200 micrograms. CONTRAST 40 cc. FLUOROSCOPY 4.7 minutes. MODERATE SEDATION 28 minutes. ESTIMATED BLOOD LOSS 10 cc. PROCEDURAL SUMMARY Toni Thompson is a pleasant 81-year-old male who presented to [facility] on March 19, 2017 due to chest pain, shortness of breath. He was found to have an elevated troponin and because of this he was recommended cardiac catheterization. Risks, benefits and alternatives were explained to him and he consented as such. He was brought to the lab and prepped in the usual sterile fashion. Right radial artery was accessed using a modified Seldinger technique and placement of a 5/6 Spanish sheath. This was easily aspirated and flushed. The JR-4 was advanced over a J-wire to the ascending aorta and across the aortic valve for measurement of left ventricular pressure. This was pulled back across the aortic valve showing no significant gradient of aortic stenosis. JR-4 was then used for selective angiography of the right coronary system. This was exchanged out for a JL-3.5 which was used for selective angiography of the left coronary system. JL-3.5 was removed over a J-wire. A radial band was placed over the arteriotomy site for hemostasis. 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 FINDINGS LEFT MAIN: Overall normal size vessel with adequate reflux. No significant disease. It bifurcates into an LAD and circumflex artery. LAD: Normal-size vessel with proximal to midportion having a 50% lesion. At the takeoff of the first diagonal the LAD is 100% occluded and there are bjwz-kq-cdfm collaterals to fill the LAD. Overall, there is one major diagonal with 30% disease throughout which appears to help provide some of the collateralization to the LAD. LEFT CIRCUMFLEX: Normal sized vessel with a mid lesion of 70 to 80%. It gives off one major obtuse marginal which appears to have a 70% lesion in the ostium of it. RCA: Previous stent in the proximal portion, is patent and distal to this is 100% occluded. There is some minor right to right collaterals which supplied into the posterior lateral and PDA. Also noted were some ohav-qh-rrybz collaterals. IMPRESSION 1. Chest pain concerning for coronary insufficiency. 2. NSTEMI. 3. Multivessel coronary artery disease as above. 4. Atrial fibrillation. RECOMMENDATIONS 1. Mr. Thompson appears to have multivessel disease and will be recommended consideration of cardiothoracic surgery. Case was discussed with Dr. Weaver from CT surgery. 2. We will check an echo to look at his overall left ventricular function, cardiac structure and possible valvulopathies. 3. He will be placed on a heparin drip 1 hour after his TR band is removed as he does have multivessel disease. 4. Further recommendations will be made after evaluation by CT surgery. Thank you for allowing me to Toni Thompson. If there are any questions please do not hesitate to call. Venkata Schuster DO VGP/EO /11:06 PM /11:33 PM
[2017-03-21] VITALS (30 sets, daily range): BP systolic 113–161; BP diastolic 79–98; PULSE 76–118; RESP 14–22; TEMP 96.9–98.2; O2SAT 96–98
[2017-03-21] MEDS: cloNIDine HCL 0.1 MG TAB PO PRN ×2 (07:25→23:23)
[2017-03-21 07:52] LABS: BLOOD, URINE NEG (NEG); GLUCOSE,URINE NEG (NEG); KETONE, URINE NEG (NEG); NITRITE,URINE NEG (NEG); URINE COLOR YELLOW (YELLW/STRAW)
[2017-03-21 07:56] LABS: COMMENT (UR) CULT NOT INDICATED; CULTURE IF INDICATED CULT NOT INDICATED
[2017-03-21] MEDS: METOPROLOL TARTRATE 25 MG TAB PO SCH ×2 (08:52→20:44)
[2017-03-21] MEDS: ASPIRIN 81 MG CHEW TAB CHEW SCH (08:53)
[2017-03-21] MEDS: DOCUSATE SODIUM 50 MG/SENNA 8.6 MG TAB PO SCH ×2 (08:53→20:45)
[2017-03-21] MEDS: PANTOPRAZOLE SOD 40 MG DELAYED RELEASE TAB PO SCH (08:53)
[2017-03-21] MEDS: SODIUM CHLORIDE 0.9% FLUSH 10 ML FLUSH IV FLUSH SCH ×2 (08:54→20:46)
[2017-03-21 09:40] LABS: BASOPHIL % 0.4 % (0.0-2.0); EOSINOPHIL # 0.3 TH/MM3 (0-0.4); EOSINOPHIL % 3.5 % (0.0-4.0); HEMATOCRIT 45.5 % (39.0-51.0); HEMO FLAGS DIFF FINAL; LYMPH % 27.1 % (9.0-44.0); LYMPHOCYTE # 2.3 TH/MM3 (1.0-4.8); MEAN CELL VOLUME 84.3 FL (80.0-100.0); MEAN CORPUSCULAR HGB CONC 33.2 % (32.0-36.0); MONO % 9.8 % (0.0-8.0); NEUT % 59.2 % (16.0-70.0); PLATELET COUNT 215 TH/MM3 (150-450); RED BLOOD COUNT 5.39 MIL/MM3 (4.50-5.90); RED CELL DISTRIBUTION WIDTH 13.9 % (11.6-17.2); WHITE BLOOD COUNT 8.5 TH/MM3 (4.0-11.0)
[2017-03-21 09:48] LABS: APTT (PATIENT) 38.1 SEC (24.3-30.1)
--- NOTE | 2017-03-21 09:49 | PD.CAR.PN ---
CVT Progress Note Subjective/Hospital Course: Awaiting repeat ECHO to determine EF Planned OR Thursday if cardiac function acceptable Objective: Vital Signs Date Time Temp Pulse Resp B/P Pulse Ox O2 Delivery O2 Flow Rate FiO2 03/21/17 07:20 96.9 92 18 159/98 96 03/21/17 06:00 92 03/21/17 05:00 84 03/21/17 04:00 92 03/21/17 03:00 85 03/21/17 03:00 97.7 83 20 138/98 97 03/21/17 02:00 82 03/21/17 01:00 94 03/21/17 00:00 92 03/21/17 00:00 97.8 77 18 119/87 98 03/20/17 23:00 86 03/20/17 22:00 98 03/20/17 21:00 108 03/20/17 20:00 98.0 95 14 140/79 96 03/20/17 20:00 114 03/20/17 19:00 109 03/20/17 18:15 71 03/20/17 17:00 108 03/20/17 16:00 90 03/20/17 15:00 97.3 90 18 136/74 96 03/20/17 15:00 90 03/20/17 14:00 100 03/20/17 13:00 84 03/20/17 12:12 72 03/20/17 10:00 92 Labs: Laboratory Tests Test 03/21/17 03/21/17 03/21/17 05:30 07:27 08:04 Nasal Screen MRSA (PCR) MRSA NOT DETECTED (NOT DETECT) Urine Color YELLOW (YELLW/STRAW) Urine Turbidity CLEAR (CLEAR) Urine pH 5.0 (5.0-8.5) Urine Specific [place] 1.018 (1.002-1.035) Urine Protein NEG mg/dL (NEG-TRACE) Urine Glucose (UA) NEG mg/dL (NEG) Urine Ketones NEG mg/dL (NEG) Urine Occult Blood NEG (NEG) Urine Nitrite NEG (NEG) Urine Bilirubin NEG (NEG) Urine Urobilinogen LESS THAN 2.0 MG/DL (LESS THAN 2.0) Urine Leukocyte Esterase NEG (NEG) Urine RBC LESS THAN 1 /hpf (0-3) Urine WBC LESS THAN 1 /hpf (0-5) Microscopic Urinalysis Comment CULT NOT INDICATED White Blood Count 8.5 TH/MM3 (4.0-11.0) Red Blood Count 5.39 MIL/MM3 (4.50-5.90) Hemoglobin 15.1 GM/DL (13.0-17.0) Hematocrit 45.5 % (39.0-51.0) Mean Corpuscular Volume 84.3 FL (80.0-100.0) Mean Corpuscular Hemoglobin 28.0 PG (27.0-34.0) Mean Corpuscular Hemoglobin 33.2 % Concent (32.0-36.0) Red Cell Distribution Width 13.9 % (11.6-17.2) Platelet Count 215 TH/MM3 (150-450) Mean Platelet Volume 8.2 FL (7.0-11.0) Neutrophils (%) (Auto) 59.2 % (16.0-70.0) Lymphocytes (%) (Auto) 27.1 % (9.0-44.0) Monocytes (%) (Auto) 9.8 % (0.0-8.0) Eosinophils (%) (Auto) 3.5 % (0.0-4.0) Basophils (%) (Auto) 0.4 % (0.0-2.0) Neutrophils # (Auto) 5.0 TH/MM3 (1.8-7.7) Lymphocytes # (Auto) 2.3 TH/MM3 (1.0-4.8) Monocytes # (Auto) 0.8 TH/MM3 (0-0.9) Eosinophils # (Auto) 0.3 TH/MM3 (0-0.4) Basophils # (Auto) 0.0 TH/MM3 (0-0.2) CBC Comment DIFF FINAL Differential Comment Result Diagram: 03/21/17 0804 03/20/17 0521 (1) NSTEMI (non-ST elevated myocardial infarction) (2) Chest pain (3) CAD (coronary artery disease) (4) Hypertension (5) Hyperlipidemia (6) New onset kathy-Yohannes Nur MD Mar 21, 2017 09:49
[2017-03-21 10:05] LABS: BICARBONATE 23.1 MEQ/L (21.0-32.0); POTASSIUM 3.8 MEQ/L (3.5-5.1)
[2017-03-21] MEDS: HEPARIN SODIUM - IV 10,000 UNITS/10 ML VIAL IV PRN ×2 (12:08→22:22)
--- NOTE | 2017-03-21 12:20 | PD.CARD.PN ---
Subjective Subjective Remarks Doing well, no complaints No chest pain/SOB Objective Medications Current Medications Medications (Trade) Dose Ordered Sig/Makayla Route Start Time Stop Time Status Last Admin (Heparin Inj) 5,000 units UNSCH PRN IV 03/19/17 20:00 Heparin Sodium (Porcine) 2500 units 2,500 units UNSCH PRN IV 03/19/17 20:00 03/21/17 12:08 (Heparin-D5W Inj) 250 ml @ 0 mls/hr TITRATE IV 03/19/17 14:00 03/19/17 15:03 (Tylenol) 650 mg Q4H PRN PO 03/19/17 14:30 (Zofran Inj) 4 mg Q6H PRN IVP 03/19/17 14:30 (Narcan Inj) 0.4 mg UNSCH PRN IV 03/19/17 14:30 (Brenda-Colace) 1 tab BID PO 03/19/17 21:00 03/20/17 09:28 (Milk Of Magnesia Liq) 30 ml Q12H PRN PO 03/19/17 14:30 (Senokot) 17.2 mg Q12H PRN PO 03/19/17 14:30 (Dulcolax Supp) 10 mg DAILY PRN RECTAL 03/19/17 14:30 (Lactulose Liq) 30 ml DAILY PRN PO 03/19/17 14:30 (Protonix) 40 mg DAILY PO 03/20/17 09:00 03/21/17 08:53 (Morphine Inj) 2 mg Q3H PRN IV PUSH 03/19/17 15:30 (Lopressor) 25 mg BID PO 03/20/17 09:00 03/21/17 08:52 (Aspirin Chew) 81 mg DAILY CHEW 03/20/17 09:00 03/21/17 08:53 (NS Flush) 2 ml BID IV FLUSH 03/20/17 21:00 03/21/17 08:54 (NS Flush) 2 ml UNSCH PRN IV FLUSH 03/20/17 14:15 (Lipitor) 80 mg HS PO 03/20/17 21:00 03/20/17 20:49 (Catapres) 0.1 mg Q6H PRN PO 03/21/17 06:15 03/21/17 07:25 Vital Signs / I&O Vital Signs Date Time Temp Pulse Resp B/P Pulse Ox O2 Delivery O2 Flow Rate FiO2 03/21/17 12:00 80 03/21/17 11:30 97.8 81 20 113/79 97 03/21/17 11:00 81 03/21/17 10:00 80 03/21/17 09:00 94 03/21/17 08:00 92 03/21/17 07:20 96.9 92 18 159/98 96 03/21/17 07:00 92 03/21/17 06:00 92 03/21/17 05:00 84 03/21/17 04:00 92 03/21/17 03:00 85 03/21/17 03:00 97.7 83 20 138/98 97 03/21/17 02:00 82 03/21/17 01:00 94 03/21/17 00:00 92 03/21/17 00:00 97.8 77 18 119/87 98 03/20/17 23:00 86 03/20/17 22:00 98 03/20/17 21:00 108 03/20/17 20:00 98.0 95 14 140/79 96 03/20/17 20:00 114 03/20/17 19:00 109 03/20/17 18:15 71 03/20/17 17:00 108 03/20/17 16:00 90 03/20/17 15:00 97.3 90 18 136/74 96 03/20/17 15:00 90 03/20/17 14:00 100 03/20/17 13:00 84 I/O 03/20/17 03/20/17 03/20/17 03/21/17 03/21/17 03/21/17 06:59 14:59 22:59 06:59 14:59 22:59 Intake Total 389 ml 850 ml 816 ml Output Total 400 ml 400 ml Balance -11 ml 850 ml 416 ml Intake Oral 240 ml 850 ml 700 ml IV Total 149 ml 116 ml Output Urine Total 400 ml 400 ml # Voids 1 # Bowel Movements 2 2 Physical Exam GENERAL: NAD, AAOx3 SKIN: Warm and dry. HEAD: Atraumatic. Normocephalic. EYES: Pupils equal and round. No scleral icterus. No injection or drainage. ENT: No nasal bleeding or discharge. Mucous membranes pink and moist. NECK: Trachea midline. No JVD. CARDIOVASCULAR: Irregularly irregular RESPIRATORY: No accessory muscle use. Clear to auscultation. Breath sounds equal bilaterally. GASTROINTESTINAL: Abdomen soft, non-tender, nondistended. Hepatic and splenic margins not palpable. MUSCULOSKELETAL: Extremities without clubbing, cyanosis, or edema. No obvious deformities. Right radial with no hematoma, neurovascularly intact distally NEUROLOGICAL: Awake and alert. No obvious cranial nerve deficits. Motor grossly within normal limits. Five out of 5 muscle strength in the arms and legs. Normal speech. PSYCHIATRIC: Appropriate mood and affect; insight and judgment normal. Laboratory Laboratory Tests Test 03/20/17 03/20/17 03/21/17 03/21/17 12:37 20:57 05:30 07:27 Activated Partial 63.3 SEC 31.3 SEC Thromboplast Time Nasal Screen MRSA (PCR) MRSA NOT DETECTED Urine Color YELLOW Urine Turbidity CLEAR Urine pH 5.0 Urine Specific [place] 1.018 Urine Protein NEG mg/dL Urine Glucose (UA) NEG mg/dL Urine Ketones NEG mg/dL Urine Occult Blood NEG Urine Nitrite NEG Urine Bilirubin NEG Urine Urobilinogen LESS THAN 2.0 MG/DL Urine Leukocyte Esterase NEG Urine RBC LESS THAN 1 /hpf Urine WBC LESS THAN 1 /hpf Microscopic Urinalysis Comment CULT NOT INDICATED Test 03/21/17 03/21/17 08:04 08:09 White Blood Count 8.5 TH/MM3 Red Blood Count 5.39 MIL/MM3 Hemoglobin 15.1 GM/DL Hematocrit 45.5 % Mean Corpuscular Volume 84.3 FL Mean Corpuscular Hemoglobin 28.0 PG Mean Corpuscular Hemoglobin 33.2 % Concent Red Cell Distribution Width 13.9 % Platelet Count 215 TH/MM3 Mean Platelet Volume 8.2 FL Neutrophils (%) (Auto) 59.2 % Lymphocytes (%) (Auto) 27.1 % Monocytes (%) (Auto) 9.8 % Eosinophils (%) (Auto) 3.5 % Basophils (%) (Auto) 0.4 % Neutrophils # (Auto) 5.0 TH/MM3 Lymphocytes # (Auto) 2.3 TH/MM3 Monocytes # (Auto) 0.8 TH/MM3 Eosinophils # (Auto) 0.3 TH/MM3 Basophils # (Auto) 0.0 TH/MM3 CBC Comment DIFF FINAL Differential Comment Activated Partial 38.1 SEC Thromboplast Time Sodium Level 136 MEQ/L Potassium Level 3.8 MEQ/L Chloride Level 102 MEQ/L Carbon Dioxide Level 23.1 MEQ/L Anion Gap 11 MEQ/L Blood Urea Nitrogen 16 MG/DL Creatinine 1.31 MG/DL Estimat Glomerular Filtration 53 ML/MIN Rate Random Glucose 141 MG/DL Calcium Level 8.3 MG/DL Assessment and Plan Problem List: (1) NSTEMI (non-ST elevated myocardial infarction) (2) Chest pain (3) CAD (coronary artery disease) (4) Hypertension (5) Hyperlipidemia (6) New onset a-fib Assessment and Plan 1) NSTEMI 2) MVCAD with 100% RCA, 100% LAD, LCx 80% 3) Consideration of CT surgery Await EF on echo with definity for further definition 4) Heparin gtt 5) BB for heart rate control 6) Discussed with patient and family, as well as Venkata Colon DO Mar 21, 2017 12:20
[2017-03-21] MEDS: HEPARIN-D5W 25,000 U/250 ML 250 ML IV SCH (17:55)
[2017-03-21 20:12] LABS: APTT (PATIENT) 33.4 SEC (24.3-30.1)
[2017-03-21] MEDS: ACETAMINOPHEN 325 MG TAB PO PRN (20:45)
[2017-03-21] MEDS: ATORVASTATIN 80 MG TAB PO SCH (20:45)
--- NOTE | 2017-03-21 21:02 | HHI.PR ---
Subjective Remarks Follow up for NSTEMI, multivessel CAD. Patient is currently doing well. Sitting in his chair, at bedside. Denies any chest pain. No fever, chills. Objective Vitals Vital Signs Date Time Temp Pulse Resp B/P Pulse Ox O2 Delivery O2 Flow Rate FiO2 03/21/17 20:30 97.7 85 14 155/95 96 03/21/17 18:00 80 03/21/17 17:00 99 03/21/17 16:00 86 03/21/17 15:15 98.2 86 18 148/85 98 03/21/17 15:00 102 03/21/17 14:00 89 03/21/17 13:00 82 03/21/17 12:24 98 21 03/21/17 12:00 80 03/21/17 11:30 97.8 81 20 113/79 97 03/21/17 11:00 81 03/21/17 10:00 80 03/21/17 09:00 94 03/21/17 08:00 92 03/21/17 07:20 96.9 92 18 159/98 96 03/21/17 07:00 92 03/21/17 06:00 92 03/21/17 05:00 84 03/21/17 04:00 92 03/21/17 03:00 85 03/21/17 03:00 97.7 83 20 138/98 97 03/21/17 02:00 82 03/21/17 01:00 94 03/21/17 00:00 92 03/21/17 00:00 97.8 77 18 119/87 98 03/20/17 23:00 86 03/20/17 22:00 98 03/20/17 21:00 108 I/O 03/20/17 03/20/17 03/20/17 03/21/17 03/21/17 03/21/17 07:00 15:00 23:00 07:00 15:00 23:00 Intake Total 389 ml 850 ml 816 ml 1030 ml Output Total 400 ml 400 ml 1200 ml Balance -11 ml 850 ml 416 ml -170 ml Intake Oral 240 ml 850 ml 700 ml 920 ml IV Total 149 ml 116 ml 110 ml Output Urine Total 400 ml 400 ml 1200 ml # Voids 1 # Bowel Movements 2 2 Result Diagram: 03/21/17 0804 03/21/17 08 Imaging Last Impressions Lower Extremity Ultrasound 03/20/17 0000 Signed Impressions: Service Date/Time: Monday, March 20, 2017 17:24 - CONCLUSION: Venous mapping of the lower extremities as above. Pablito Parker MD Chest X-Ray 03/19/17 1124 Signed Impressions: Service Date/Time: March 11:51 - CONCLUSION: No acute cardiopulmonary disease. Chaz Salinas MD Objective Remarks GENERAL: Alert, oriented 3, NAD. SKIN: Warm and dry. HEAD: Normocephalic. EYES: No scleral icterus. No injection or drainage. NECK: Supple, trachea midline. No JVD or lymphadenopathy. CARDIOVASCULAR: Regular rate and rhythm without murmurs, gallops, or rubs. RESPIRATORY: Breath sounds equal bilaterally. No accessory muscle use. GASTROINTESTINAL: Abdomen soft, non-tender, nondistended. MUSCULOSKELETAL: No cyanosis, or edema. BACK: Nontender without obvious deformity. No CVA tenderness. Procedures Echo 03/20/2017 CONCLUSIONS The left ventricle is not well visualized. The left ventricular systolic function is moderately reduced with an estimated ejection fraction in the range of 40-45%. Global hypokinesis There was limited left ventricular wall motion assessment due to poor endocardial visualization. Definity contrast used to assist in LV visualization. A/P Problem List: (1) New onset a-fib ICD Code: I48.91 Status: Acute (2) NSTEMI (non-ST elevated myocardial infarction) ICD Code: I21.4 Status: Acute (3) CAD (coronary artery disease) ICD Code: I25.10 Status: Chronic (4) Chest pain ICD Code: R07.9 Status: Acute (5) Elevated troponin ICD Code: R74.8 Status: Acute (6) Hypertension ICD Code: I10 Status: Chronic (7) Hyperlipidemia ICD Code: E78.5 Status: Chronic Assessment and Plan 81-year-old male with history of CAD s/p stents x3, hypertension, hyperlipidemia , pericarditis, PUD, presents with acute onset of chest pain and shortness of breath on 03/19/17. Atrial Fibrillation with RVR: EKG reviewed, shows afib w/RVR, ventricular rate 136. S/p IV Cardizem 20mg x1. -Continue metoprolol 25mg BID. -Continue IV heparin drip, plan to transition to Xarelto. [id number] score 3 (Age, HTN). - NSTEMI - Multivessel Coronary artery disease with 100% RCA, 100% LAD, LCx 80% - Continue heparin drip, Aspirin 81mg Qday, Lipitor 80mg QHS, Metoprolol 25mg BID. - Probable CABG early next week. Cardiology, Cardiothoracic surgery following. Hypertension - mildly elevated - systolic around 150s. - If okay with cardiology, we could consider switching BB to Carvedilol for both HTN and Afib rate control. Full code. DVT Prophylaxis: on Heparin drip Brenden Funes DO Mar 21, 2017 21:02
[2017-03-21] MEDS: diphenhydrAMINE HCL 25 MG CAP PO PRN (23:23)
[2017-03-22] VITALS (28 sets, daily range): BP systolic 127–159; BP diastolic 78–98; PULSE 67–80; RESP 14–20; TEMP 97.4–98.4; O2SAT 96–97
[2017-03-22 05:00] LABS: HEMATOCRIT 44.3 % (39.0-51.0); MEAN CELL VOLUME 85.6 FL (80.0-100.0); MEAN CORPUSCULAR HEMOGLOBIN 28.3 PG (27.0-34.0); MEAN CORPUSCULAR HGB CONC 33.1 % (32.0-36.0); PLATELET COUNT 195 TH/MM3 (150-450); RED BLOOD COUNT 5.18 MIL/MM3 (4.50-5.90); RED CELL DISTRIBUTION WIDTH 14.1 % (11.6-17.2); REVIEW FLAG FINAL; WHITE BLOOD COUNT 9.9 TH/MM3 (4.0-11.0)
[2017-03-22 05:08] LABS: APTT (PATIENT) 44.1 SEC (24.3-30.1)
[2017-03-22 05:34] LABS: ALKALINE PHOSPHATASE 48 U/L (45-117); ALT (GPT) 31 U/L (12-78); ANION GAP 11 MEQ/L (5-15); AST (GOT) 30 U/L (15-37); BICARBONATE 27.8 MEQ/L (21.0-32.0); BLOOD UREA NITROGEN 15 MG/DL (7-18); CHLORIDE 103 MEQ/L (98-107); GLOMERULAR FILTRATION RATE 47 ML/MIN (>89); POTASSIUM 4.5 MEQ/L (3.5-5.1); SODIUM (NA) 142 MEQ/L (136-145); TOTAL BILIRUBIN ADULT 0.6 MG/DL (0.2-1.0)
--- NOTE | 2017-03-22 07:11 | HHI.PR ---
Subjective Remarks Follow up for NSTEMI, multivessel CAD. Patient is doing well. No chest pain, SOB , fever, chills. However, last night he started having toothache again. Prior to this admission, he was scheduled for a tooth extraction. Objective Vitals Vital Signs Date Time Temp Pulse Resp B/P Pulse Ox O2 Delivery O2 Flow Rate FiO2 03/22/17 06:00 68 03/22/17 05:00 70 03/22/17 04:00 72 03/22/17 03:00 97.4 74 18 136/85 97 03/22/17 03:00 71 03/22/17 02:00 70 03/22/17 01:00 72 03/22/17 00:00 70 03/21/17 23:00 78 03/21/17 23:00 97.7 76 22 161/94 96 03/21/17 22:06 96 03/21/17 22:00 90 03/21/17 21:00 94 03/21/17 20:30 97.7 85 14 155/95 96 03/21/17 20:00 100 03/21/17 19:00 118 03/21/17 18:00 80 03/21/17 17:00 99 03/21/17 16:00 86 03/21/17 15:15 98.2 86 18 148/85 98 03/21/17 15:00 102 03/21/17 14:00 89 03/21/17 13:00 82 03/21/17 12:24 98 21 03/21/17 12:00 80 03/21/17 11:30 97.8 81 20 113/79 97 03/21/17 11:00 81 03/21/17 10:00 80 03/21/17 09:00 94 03/21/17 08:00 92 03/21/17 07:20 96.9 92 18 159/98 96 I/O 03/21/17 03/21/17 03/21/17 03/22/17 03/22/17 03/22/17 07:00 15:00 23:00 07:00 15:00 23:00 Intake Total 816 ml 1030 ml 786 ml Output Total 400 ml 1200 ml 575 ml Balance 416 ml -170 ml 211 ml Intake Oral 700 ml 920 ml 660 ml IV Total 116 ml 110 ml 126 ml Output Urine Total 400 ml 1200 ml 575 ml # Voids 3 # Bowel Movements 2 1 Result Diagram: 03/22/17 0313 03/22/17 0313 Imaging Last Impressions Lower Extremity Ultrasound 03/20/17 0000 Signed Impressions: Service Date/Time: Monday, March 20, 2017 17:24 - CONCLUSION: Venous mapping of the lower extremities as above. Pablito Parker MD Chest X-Ray 03/19/17 1124 Signed Impressions: Service Date/Time: March 11:51 - CONCLUSION: No acute cardiopulmonary disease. Chaz Salinas MD Objective Remarks GENERAL: Alert, oriented 3, NAD. SKIN: Warm and dry. HEAD: Normocephalic. EYES: No scleral icterus. No injection or drainage. NECK: Supple, trachea midline. No JVD or lymphadenopathy. CARDIOVASCULAR: Regular rate and rhythm without murmurs, gallops, or rubs. RESPIRATORY: Breath sounds equal bilaterally. No accessory muscle use. GASTROINTESTINAL: Abdomen soft, non-tender, nondistended. MUSCULOSKELETAL: No cyanosis, or edema. BACK: Nontender without obvious deformity. No CVA tenderness. Procedures Echo 03/20/2017 CONCLUSIONS The left ventricle is not well visualized. The left ventricular systolic function is moderately reduced with an estimated ejection fraction in the range of 40-45%. Global hypokinesis There was limited left ventricular wall motion assessment due to poor endocardial visualization. Definity contrast used to assist in LV visualization. A/P Problem List: (1) New onset a-fib ICD Code: I48.91 - Unspecified atrial fibrillation Status: Acute (2) NSTEMI (non-ST elevated myocardial infarction) ICD Code: I21.4 - Non-ST elevation (NSTEMI) myocardial infarction Status: Acute (3) CAD (coronary artery disease) ICD Code: I25.10 - Atherosclerotic heart disease of [place] coronary artery without angina pectoris Status: Chronic (4) Chest pain ICD Code: R07.9 - Chest pain, unspecified Status: Acute (5) Elevated troponin ICD Code: R74.8 - Abnormal levels of other serum enzymes Status: Acute (6) Hypertension ICD Code: I10 - Essential (primary) hypertension Status: Chronic (7) Hyperlipidemia ICD Code: E78.5 - Hyperlipidemia, unspecified Status: Chronic Assessment and Plan 81-year-old male with history of CAD s/p stents x3, hypertension, hyperlipidemia , pericarditis, PUD, presents with acute onset of chest pain and shortness of breath on 03/19/17. Atrial Fibrillation with RVR -Continue metoprolol 25mg BID. -Continue IV heparin drip, plan to transition to Xarelto. [id number] score 3 (Age, HTN). - NSTEMI - Multivessel Coronary artery disease with 100% RCA, 100% LAD, LCx 80% - Continue heparin drip, Aspirin 81mg Qday, Lipitor 80mg QHS, Metoprolol 25mg BID. - Probable CABG early next week. Cardiology, Cardiothoracic surgery following. Hypertension - mildly elevated - systolic around 140s to 150s. - If okay with cardiology, we could consider switching BB to Carvedilol for both HTN and Afib rate control. - Dental pain - patient was scheduled for too extraction, now postponed due to cardiac issues. - Acetaminophen for pain and tramadol for severe pain. Full code. DVT Prophylaxis: on Heparin drip Brenden Funes DO Mar 22, 2017 07:11
[2017-03-22] MEDS: DOCUSATE SODIUM 50 MG/SENNA 8.6 MG TAB PO SCH ×2 (09:00→20:47)
[2017-03-22] MEDS: ASPIRIN 81 MG CHEW TAB CHEW SCH (09:00)
[2017-03-22] MEDS: SODIUM CHLORIDE 0.9% FLUSH 10 ML FLUSH IV FLUSH SCH ×2 (09:00→20:47)
[2017-03-22] MEDS: METOPROLOL TARTRATE 25 MG TAB PO SCH ×2 (09:00→20:47)
[2017-03-22] MEDS: PANTOPRAZOLE SOD 40 MG DELAYED RELEASE TAB PO SCH (09:00)
[2017-03-22 11:55] LABS: APTT (PATIENT) 42.5 SEC (24.3-30.1)
--- NOTE | 2017-03-22 14:13 | PD.CARD.PN ---
Subjective Subjective Remarks Patient seen this morning No events overnight Heart rates controlled, converted to sinus rhythm Tooth pain, was to be extracted previously Objective Medications Current Medications Medications (Trade) Dose Ordered Sig/Makayla Route Start Time Stop Time Status Last Admin (Heparin Inj) 5,000 units UNSCH PRN IV 03/19/17 20:00 (Heparin Inj) 2,500 units UNSCH PRN IV 03/19/17 20:00 03/21/17 22:22 Heparin Sodium/ Dextrose 250 ml @ 0 mls/hr TITRATE IV 03/19/17 14:00 03/21/17 17:55 (Tylenol) 650 mg Q4H PRN PO 03/19/17 14:30 03/21/17 20:45 (Zofran Inj) 4 mg Q6H PRN IVP 03/19/17 14:30 (Narcan Inj) 0.4 mg UNSCH PRN IV 03/19/17 14:30 (Brenda-Colace) 1 tab BID PO 03/19/17 21:00 03/20/17 09:28 (Milk Of Magnesia Liq) 30 ml Q12H PRN PO 03/19/17 14:30 (Senokot) 17.2 mg Q12H PRN PO 03/19/17 14:30 (Dulcolax Supp) 10 mg DAILY PRN RECTAL 03/19/17 14:30 (Lactulose Liq) 30 ml DAILY PRN PO 03/19/17 14:30 (Protonix) 40 mg DAILY PO 03/20/17 09:00 03/21/17 08:53 (Morphine Inj) 2 mg Q3H PRN IV PUSH 03/19/17 15:30 (Lopressor) 25 mg BID PO 03/20/17 09:00 03/21/17 20:44 (Aspirin Chew) 81 mg DAILY CHEW 03/20/17 09:00 03/21/17 08:53 (NS Flush) 2 ml BID IV FLUSH 03/20/17 21:00 03/21/17 20:46 (NS Flush) 2 ml UNSCH PRN IV FLUSH 03/20/17 14:15 Papaverine HCl 60 mg/Nitroglycerin 100 mcg/Diltiazem HCl 100 mg/Sodium Chloride 100.0 ml @ 0 mls/hr REVOLVING INVENTORY CLERK IRRIGATION 03/20/17 14:15 03/27/17 14:14 Cefazolin Sodium 500 mg/Sodium Chloride 505 ml @ 0 mls/hr REVOLVING INVENTORY CLERK IRRIGATION 03/20/17 14:15 03/27/17 14:14 Cefazolin Sodium/ Dextrose 50 ml @ 150 mls/hr REVOLVING INVENTORY CLERK IV 03/20/17 14:15 03/27/17 14:14 (Lopressor) 12.5 mg REVOLVING INVENTORY CLERK PO 03/20/17 14:15 03/27/17 14:14 (Hibiclens 4% Top Soln) 1 applic REVOLVING INVENTORY CLERK TOPICAL 03/20/17 14:15 03/27/17 14:14 Insulin Human Regular 100 units/ Sodium Chloride 101 ml @ 0 mls/hr REVOLVING INVENTORY CLERK IV 03/20/17 14:15 03/27/17 14:14 (Lipitor) 80 mg HS PO 03/20/17 21:00 03/21/17 20:45 (Catapres) 0.1 mg Q6H PRN PO 03/21/17 06:15 03/21/17 23:23 (Benadryl) 25 mg HS PRN PO 03/21/17 23:15 03/21/17 23:23 (Ultram) 50 mg Q8H PRN PO 03/22/17 07:15 Vital Signs / I&O Vital Signs Date Time Temp Pulse Resp B/P (MAP) Pulse Ox O2 Delivery O2 Flow Rate FiO2 03/22/17 08:01 96 21 03/22/17 07:15 97.5 74 20 159/98 (118) 96 03/22/17 07:00 68 03/22/17 06:00 68 03/22/17 05:00 70 03/22/17 04:00 72 03/22/17 03:00 97.4 74 18 136/85 (102) 97 03/22/17 03:00 71 03/22/17 02:00 70 03/22/17 01:00 72 03/22/17 00:00 70 03/21/17 23:00 78 03/21/17 23:00 97.7 76 22 161/94 (116) 96 03/21/17 22:06 96 03/21/17 22:00 90 03/21/17 21:00 94 03/21/17 20:30 97.7 85 14 155/95 (115) 96 03/21/17 20:00 100 8/19/17 19:00 118 03/21/17 18:00 80 03/21/17 17:00 99 03/21/17 16:00 86 03/21/17 15:15 98.2 86 18 148/85 (106) 98 03/21/17 15:00 102 I/O 03/21/17 03/21/17 03/21/17 03/22/17 03/22/17 03/22/17 06:59 14:59 22:59 06:59 14:59 22:59 Intake Total 816 ml 1030 ml 786 ml Output Total 400 ml 1200 ml 575 ml Balance 416 ml -170 ml 211 ml Intake Oral 700 ml 920 ml 660 ml IV Total 116 ml 110 ml 126 ml Output Urine Total 400 ml 1200 ml 575 ml # Voids 3 # Bowel Movements 2 1 Physical Exam GENERAL: NAD, AAOx3 SKIN: Warm and dry. HEAD: Atraumatic. Normocephalic. EYES: Pupils equal and round. No scleral icterus. No injection or drainage. ENT: No nasal bleeding or discharge. Mucous membranes pink and moist. NECK: Trachea midline. No JVD. CARDIOVASCULAR: Irregularly irregular RESPIRATORY: No accessory muscle use. Clear to auscultation. Breath sounds equal bilaterally. GASTROINTESTINAL: Abdomen soft, non-tender, nondistended. Hepatic and splenic margins not palpable. MUSCULOSKELETAL: Extremities without clubbing, cyanosis, or edema. No obvious deformities. Right radial with no hematoma, neurovascularly intact distally NEUROLOGICAL: Awake and alert. No obvious cranial nerve deficits. Motor grossly within normal limits. Five out of 5 muscle strength in the arms and legs. Normal speech. PSYCHIATRIC: Appropriate mood and affect; insight and judgment normal. Laboratory Laboratory Tests Test 03/21/17 19:35 03/22/17 03:13 03/22/17 09:48 Activated Partial Thromboplast Time 33.4 SEC 44.1 SEC 42.5 SEC White Blood Count 9.9 TH/MM3 Red Blood Count 5.18 MIL/MM3 Hemoglobin 14.7 GM/DL Hematocrit 44.3 % Mean Corpuscular Volume 85.6 FL Mean Corpuscular Hemoglobin 28.3 PG Mean Corpuscular Hemoglobin Concent 33.1 % Red Cell Distribution Width 14.1 % Platelet Count 195 TH/MM3 Mean Platelet Volume 8.5 FL Blood Urea Nitrogen 15 MG/DL Creatinine 1.45 MG/DL Random Glucose 122 MG/DL Total Protein 7.1 GM/DL Albumin 3.6 GM/DL Calcium Level 9.4 MG/DL Alkaline Phosphatase 48 U/L Aspartate Amino Transf (AST/SGOT) 30 U/L Alanine Aminotransferase (ALT/SGPT) 31 U/L Total Bilirubin 0.6 MG/DL Sodium Level 142 MEQ/L Potassium Level 4.5 MEQ/L Chloride Level 103 MEQ/L Carbon Dioxide Level 27.8 MEQ/L Anion Gap 11 MEQ/L Estimat Glomerular Filtration Rate 47 ML/MIN Assessment and Plan Problem List: (1) NSTEMI (non-ST elevated myocardial infarction) ICD Codes: I21.4 - Non-ST elevation (NSTEMI) myocardial infarction Status: Acute (2) Chest pain ICD Codes: R07.9 - Chest pain, unspecified Status: Acute (3) CAD (coronary artery disease) ICD Codes: I25.10 - Atherosclerotic heart disease of [place] coronary artery without angina pectoris Status: Chronic (4) Hypertension ICD Codes: I10 - Essential (primary) hypertension Status: Chronic (5) Hyperlipidemia ICD Codes: E78.5 - Hyperlipidemia, unspecified Status: Chronic (6) New onset a-fib ICD Codes: I48.91 - Unspecified atrial fibrillation Status: Acute Assessment and Plan 1) NSTEMI 2) MVCAD with 100% RCA, 100% LAD, LCx 80% 3) Consideration of CT surgery Repeat echo with contrast showing EF 40-45% 4) Heparin gtt 5) BB for heart rate control, will see how he does after surgery, may need further medications for BP control 6) Discussed with patient and family, as well as Venkata Colon DO Mar 22, 2017 14:13
[2017-03-22] MEDS: HEPARIN-D5W 25,000 U/250 ML 250 ML IV SCH (15:20)
[2017-03-22] MEDS: ACETAMINOPHEN 325 MG TAB PO PRN (15:24)
[2017-03-22] MEDS: ATORVASTATIN 80 MG TAB PO SCH (20:46)
[2017-03-22] MEDS: traMADol HCL 50 MG TAB PO PRN (20:47)
[2017-03-22] MEDS: diphenhydrAMINE HCL 25 MG CAP PO PRN (23:35)
[2017-03-23] VITALS (18 sets, daily range): BP systolic 121–160; BP diastolic 64–88; PULSE 62–91; RESP 14–19; TEMP 97.5–98.7; O2SAT 92–98
[2017-03-23] MEDS ORDERED: INSULIN HUMAN REGULAR 1,000 UNITS/10 ML VIAL SQ PRN (04:15)
[2017-03-23] MEDS ORDERED: LACTATED RINGER'S 1000 ML IV PRN (04:15)
[2017-03-23] MEDS ORDERED: SODIUM CHLORID 0.9% 500 ML IV PRN (04:15)
[2017-03-23] MEDS ORDERED: CHLORHEXIDINE GLUCONATE 2 % 1 PACK (2 CLOTHS) TOPICAL PRN (04:15)
[2017-03-23] MEDS ORDERED: POVIDONE IODINE 5% (ANTISEPSIS KIT) 4 APPLICATIONS EACH NARE PRN (04:15)
[2017-03-23] MEDS: METOPROLOL TARTRATE 25 MG TAB PO SCH ×2 (05:41→21:00)
[2017-03-23] MEDS: traMADol HCL 50 MG TAB PO PRN ×2 (05:41→11:25)
[2017-03-23 06:54] LABS: APTT (PATIENT) 43.3 SEC (24.3-30.1)
[2017-03-23] MEDS ORDERED: VANCOMYCIN HCL 1000 MG VIAL ONE (07:25)
[2017-03-23] MEDS ORDERED: HEPARIN SODIUM - SQ 10,000 UNITS/ML VIAL ONE (07:26)
[2017-03-23] MEDS ORDERED: POTASSIUM CHLORIDE 40 MEQ/20 ML VIAL ONE (07:58)
--- NOTE | 2017-03-23 08:56 | PD.CAR.PN ---
CVT Progress Note Subjective/Hospital Course: 81/ male / presented to ED with chest pain , found to have an elevated trop and Afib RVR, started on cardizem. Underwent cardiac cath by Dr Mehta , found to have 20% L Main, 100% mid/distal LAD, daig 80%, CX 80% OM 70% RCA 100%. We were consulted to eval for CABG. ECHO: EF 40-45% global hypokinesis LVSF moderatelt reduced PMH: CAD/ prior TX/ PCI/ stents x 3 , Afib , HTN, HLP essential tremors Pt for surgery today 03/23 sts data discussed with pt RISK SCORES About the STS Risk Calculator Procedure: CAB Only Risk of Mortality: 4.43% Morbidity or Mortality: 29.699% Long Length of Stay: 15.516% Short Length of Stay: 18.107% Permanent Stroke: 1.196% Prolonged Ventilation: 22.009% DSW Infection: 1.268% Renal Failure: 14.554% Reoperation: 8.25% Objective: Vital Signs Date Time Temp Pulse Resp B/P (MAP) Pulse Ox O2 Delivery O2 Flow Rate FiO2 03/23/17 06:00 66 03/23/17 05:40 97.5 67 14 160/88 (112) 98 03/23/17 05:00 66 03/23/17 04:00 86 03/23/17 03:00 62 03/23/17 02:00 64 03/23/17 01:00 68 03/23/17 00:00 86 03/22/17 23:35 97 03/22/17 23:30 98.2 67 14 127/82 (97) 97 03/22/17 23:00 72 03/22/17 22:00 74 03/22/17 21:00 72 03/22/17 20:00 76 03/22/17 19:51 98.4 78 20 147/78 (101) 97 03/22/17 18:00 80 03/22/17 17:00 70 03/22/17 16:00 78 03/22/17 15:00 70 03/22/17 15:00 97.9 73 20 155/85 (108) 96 03/22/17 14:00 74 03/22/17 13:00 74 03/22/17 12:00 74 03/22/17 11:00 74 03/22/17 11:00 97.7 74 20 129/81 (97) 97 03/22/17 10:00 72 03/22/17 09:00 68 Labs: Laboratory Tests Test 03/23/17 04:22 Activated Partial Thromboplast Time 43.3 SEC (24.3-30.1) Result Diagram: 03/22/1731203/22/17312 (1) NSTEMI (non-ST elevated myocardial infarction) (2) Chest pain (3) CAD (coronary artery disease) (4) Hypertension (5) Hyperlipidemia (6) New onset a-fib Kerri Lewis Mar 23, 2017 08:56
[2017-03-23] MEDS: SODIUM CHLORIDE 0.9% FLUSH 10 ML FLUSH IV FLUSH SCH ×3 (09:00→21:27)
[2017-03-23] MEDS: PANTOPRAZOLE SOD 40 MG DELAYED RELEASE TAB PO SCH (09:00)
[2017-03-23] MEDS: ASPIRIN 81 MG CHEW TAB CHEW SCH (09:00)
[2017-03-23] MEDS: DOCUSATE SODIUM 50 MG/SENNA 8.6 MG TAB PO SCH ×2 (09:00→21:28)
[2017-03-23] MEDS ORDERED: ceFAZolin 2 GM PREMIX 50 ML ONE (09:04)
[2017-03-23] MEDS ORDERED: PROTAMINE SULFATE 250 MG/25 ML VIAL IV ONE (09:04)
[2017-03-23] MEDS ORDERED: ceFAZolin INJ 1,000 MG VIAL ONE (12:27)
[2017-03-23] MEDS ORDERED: LACTATED RINGER'S 1000 ML INJ 500 ML IV PRN (13:08)
[2017-03-23] MEDS: DOBUTamine PREMIX DRIP 250 ML IV SCH (13:08)
[2017-03-23] MEDS ORDERED: ACETAMINOPHEN 325 MG TAB PO PRN (13:15)
[2017-03-23] MEDS ORDERED: hydrALAZINE HCL 20 MG/ML VIAL IV PRN (13:15)
[2017-03-23] MEDS ORDERED: CLEVIDIPINE INJ 50 ML IV PRN (13:15)
[2017-03-23] MEDS ORDERED: MEPERIDINE HCL 25 MG/ML VIAL IV PRN (13:15)
[2017-03-23] MEDS ORDERED: PHENYLEPHRINE INJ 40 MG in DEXTROSE 5% IN WATE 500 ML INJ 496 ML IV PRN ×2 (13:15)
[2017-03-23] MEDS ORDERED: INSULIN REGULAR (IV INFUSION) 100 UNITS in SODIUM CHLORIDE 0.9% INJ 99 ML IV SCH (13:15)
[2017-03-23] MEDS ORDERED: METOPROLOL TARTRATE 5 MG/5 ML VIAL IV PUSH PRN (13:15)
[2017-03-23] MEDS ORDERED: ACETAMINOPHEN 650 MG SUPP RECTAL PRN (13:15)
[2017-03-23] MEDS ORDERED: POTASSIUM CHLOR 20 MEQ PREMIX 100 ML IV PRN ×3 (13:15)
[2017-03-23] MEDS ORDERED: DEXMEDETOMIDINE INJ 200 MCG in SODIUM CHLORIDE 0.9% INJ 50 ML IV PRN (13:15)
[2017-03-23] MEDS ORDERED: SODIUM CHLORIDE 0.9% FLUSH 10 ML FLUSH IV FLUSH PRN (13:15)
[2017-03-23] MEDS ORDERED: DEXTROSE 50% IN WATER 50 ML VIAL(D50) IV PUSH PRN (13:15)
[2017-03-23] MEDS ORDERED: DOPamine INJ PREMIX 500 ML IV PRN (13:15)
[2017-03-23] MEDS ORDERED: NITROGLYCERIN-D5W 50 MG/250 ML 250 ML IV PRN (13:15)
[2017-03-23] MEDS ORDERED: CALCIUM CHLORIDE INJ 1 GM in SODIUM CHLORIDE 0.9% INJ 100 ML IV PRN (13:15)
[2017-03-23] MEDS ORDERED: RESP: ALBUTEROL 2.5 MG/IPRATROPIUM 0.5 MG NEB (PRN) NEB (13:15)
[2017-03-23] MEDS ORDERED: MORPHINE SULFATE 4 MG/ML INJ IV PRN (13:15)
[2017-03-23] MEDS ORDERED: POTASSIUM CHLORIDE 20 MEQ CONTROLLED RELEASE TAB PO PRN ×2 (13:15)
[2017-03-23] MEDS ORDERED: RESP: RACEPINEPHRINE 2.25% 0.5 ML NEB NEB PRN (13:15)
[2017-03-23] MEDS ORDERED: ALBUMIN HUMAN 5% 12.5 GM/250 ML BOTTLE IV PRN (13:15)
[2017-03-23] MEDS ORDERED: ONDANSETRON HCL 4 MG/2 ML VIAL IV PUSH PRN (13:15)
[2017-03-23] MEDS ORDERED: CALCIUM CHLORIDE 10% 1 GRAM/10 ML VIAL IV PRN (13:15)
[2017-03-23] MEDS ORDERED: MAGNESIUM SULFATE INJ 2 GM in SODIUM CHLORIDE 0.9% INJ 100 ML IV PRN ×4 (13:15)
--- NOTE | 2017-03-23 13:50 | PD.OP ---
cc: Yohannes Weaver MD; Venkata Mehta DO Operative Report Date of Surgery: Mar 23, 2017 Preoperative Diagnosis: Postoperative Diagnosis: Procedure: 1. Urgent Off-pump Coronary Artery Bypass Grafting x 3 with Left Internal Mammary Artery (WEI) to Left Anterior Descending (LAD), reverse saphenous vein graft to the Obtuse Marginal 1 branch of the Circumflex artery, reverse saphenous vein graft to the Posterior Descending (RPDA) branch of the Right Coronary Artery (RCA) 2. Left Leg Endoscopic Vein [place] 3. Intraoperative Vein Mapping. Surgeon: Yohannes Weaver Coupon Clerk(s): Flor Gordon Operation and Findings: PREPROCEDURE DIAGNOSES 1. Severe Multi Vessel Coronary Artery Disease. 2. Acute Myocardial Infarction (NSTEMI) 3. Severe Left Ventricular Dysfunction POSTPROCEDURE DIAGNOSES Same SURGICAL PROCEDURE 1. Urgent Off-pump Coronary Artery Bypass Grafting x 3 with Left Internal Mammary Artery (WEI) to Left Anterior Descending (LAD), reverse saphenous vein graft to the Obtuse Marginal 1 branch of the Circumflex artery, reverse saphenous vein graft to the Posterior Descending (RPDA) branch of the Right Coronary Artery (RCA) 2. Left Leg Endoscopic Vein [place] 3. Intraoperative Vein Mapping. SURGEON Yohannes Weaver MD NAIL MACHINE OPERATOR Flor Gordon [facility] General endotracheal [facility] LAB TECHNICIAN SALVATORE Adler MD PREPARATION ChloraPrep. COUNTS Needle, sponge, and instrument counts were correct. DRAINS Two 32-[place] mediastinal tubes. COMPLICATIONS None. INDICATIONS FOR PROCEDURE The patient is a 81-year-old presenting with chest pain and AMI. Patient was noted to have severe multi-vessel coronary artery disease with EF 25%. The patient is being brought to the operating room for surgical revascularization therapy. PROCEDURE Patient was brought to the operating room and placed supine on the OR table. Following the induction of adequate general endotracheal anesthesia and placement of appropriate monitoring devices, intraoperative vein mapping was performed which revealed suitable-caliber conduit in the left lower extremity. The patient was then prepped and draped in standard sterile fashion. Next, 2500 units of intravenous heparin was given. The left greater saphenous vein was harvested endoscopically. This appeared to be a good-caliber conduit. Simultaneously, a median sternotomy was performed and the left internal mammary artery dissected free off the posterior sternal table. The patient was systemically heparinized and anticoagulation monitored by serial ACT measurements. The internal mammary artery had excellent pulsatile flow in it and was a good-caliber conduit. The pericardium was then divided in the midline , the cradle created and targets analyzed. At this point, all anastomoses were performed in a beating-heart fashion using the [place] stabilizing system. The left internal mammary artery was anastomosed to the mid LAD (1.5 mm) in an end- to-side fashion using 7-0 Prolene. Segment of saphenous vein graft was then anastomosed to the OM1 (2 mm) in an end-to-side fashion using 7-0 Prolene. The final segment was anastomosed to the RPDA (1.5 mm) in an end-to-side fashion using a running 7-0 Prolene. The proximal anastomoses were then constructed to the ascending aorta in a running manner using 6-0 Prolene. All anastomotic sites were inspected and appeared to be hemostatic and patent. Protamine solution was given. Strict hemostasis was assured. The closure was undertaken. 2 chest tubes were placed. The pericardium was reapproximated in the midline. The sternum was approximated using sternal wires. The muscular and fascial layer were then closed in 3 layers. The endoscopic vein harvest sites were closed in 2 layers. The patient tolerated the procedure well and was transferred to CVICU in stable condition. Yohannes Weaver MD Mar 23, 2017 13:50
[2017-03-23] MEDS ORDERED: Post-op Orders (for Pharmacy) MISC OTHER ONE (14:00)
--- NOTE | 2017-03-23 14:39 | RADRPT ---
EXAM DATE/TIME: 03/23/2017 14:00 [facility] COMPARISON: CHEST SINGLE AP, October 05, 2015, 12:58. INDICATIONS : S/p cabg. MEDICAL HISTORY : Hypercholesterolemia. Hypertension Myocardial infarction. Coronary artery disease, atrial fibrill ation, carcinoma melanoma SURGICAL HISTORY : Coronary artery stent. ENCOUNTER: Initial ACUITY: 1 day PAIN SCORE: Non-responsive. LOCATION: Bilateral chest FINDINGS: A single view of the chest demonstrates cardiomegaly and previous CABG. Right jugular central line wi th tip in the SVC. Left-sided chest tube without pneumothorax. Minimal left basal atelectasis.. Osse ous structures are intact. CONCLUSION: Cardiomegaly and CABG. Left-sided chest tube without pneumothorax. [place] Desir MD on March 23, 2017 at 14:37 Board Certified Radiologist. This report was verified electronically.
[2017-03-23] MEDS ORDERED: fentaNYL CITRATE 1000 MCG/20 ML VIAL ONE ×2 (14:40→14:41)
[2017-03-23] MEDS ORDERED: MIDAZOLAM HCL 5 MG/5 ML VIAL ONE (14:42)
[2017-03-23] MEDS: ACETAMINOPHEN 1000 MG/100 ML VIAL IV SCH ×2 (15:01→21:29)
[2017-03-23] MEDS: RESP: ALBUTEROL 2.5 MG/IPRATROPIUM 0.5 MG NEB (SCH) NEB ×2 (16:00→21:20)
[2017-03-23 16:32] LABS: HEMOGLOBIN A1a 1.4 %; HEMOGLOBIN A1b 2.4 %; HEMOGLOBIN Ao 85.2 %; HEMOGLOBIN P3 3.3 %
--- NOTE | 2017-03-23 16:59 | PD.CARD.PN ---
Subjective Subjective Remarks Post CABG Extubated, doing well Objective Medications Current Medications Medications (Trade) Dose Ordered Sig/Makayla Route Start Time Stop Time Status Last Admin (Heparin Inj) 5,000 units UNSCH PRN IV 03/19/17 20:00 (Heparin Inj) 2,500 units UNSCH PRN IV 03/19/17 20:00 03/21/17 22:22 Heparin Sodium/ Dextrose 250 ml @ 0 mls/hr TITRATE IV 03/19/17 14:00 03/22/17 15:20 (Narcan Inj) 0.4 mg UNSCH PRN IV 03/19/17 14:30 (Brenda-Colace) 1 tab BID PO 03/19/17 21:00 03/22/17 09:00 (Milk Of Magnesia Liq) 30 ml Q12H PRN PO 03/19/17 14:30 (Senokot) 17.2 mg Q12H PRN PO 03/19/17 14:30 (Dulcolax Supp) 10 mg DAILY PRN RECTAL 03/19/17 14:30 (Lactulose Liq) 30 ml DAILY PRN PO 03/19/17 14:30 (Protonix) 40 mg DAILY PO 03/20/17 09:00 03/22/17 09:00 (Morphine Inj) 2 mg Q3H PRN IV PUSH 03/19/17 15:30 (Lopressor) 25 mg BID PO 03/20/17 09:00 03/23/17 05:41 (NS Flush) 2 ml BID IV FLUSH 03/20/17 21:00 03/22/17 20:47 (NS Flush) 2 ml UNSCH PRN IV FLUSH 03/20/17 14:15 Papaverine HCl 60 mg/Nitroglycerin 100 mcg/Diltiazem HCl 100 mg/Sodium Chloride 100.0 ml @ 0 mls/hr RUNSTITCHING MACHINE OPERATOR IRRIGATION 03/20/17 14:15 03/27/17 14:14 03/23/17 10:27 Cefazolin Sodium 500 mg/Sodium Chloride 505 ml @ 0 mls/hr RUNSTITCHING MACHINE OPERATOR IRRIGATION 03/20/17 14:15 03/27/17 14:14 03/23/17 12:51 Cefazolin Sodium/ Dextrose 50 ml @ 150 mls/hr RUNSTITCHING MACHINE OPERATOR IV 03/20/17 14:15 03/27/17 14:14 03/23/17 09:05 (Lopressor) 12.5 mg RUNSTITCHING MACHINE OPERATOR PO 03/20/17 14:15 03/27/17 14:14 (Hibiclens 4% Top Soln) 1 applic RUNSTITCHING MACHINE OPERATOR TOPICAL 03/20/17 14:15 03/27/17 14:14 Insulin Human Regular 100 units/ Sodium Chloride 101 ml @ 0 mls/hr RUNSTITCHING MACHINE OPERATOR IV 03/20/17 14:15 03/27/17 14:14 03/23/17 14:11 (Lipitor) 80 mg HS PO 03/20/17 21:00 03/22/17 20:46 (Catapres) 0.1 mg Q6H PRN PO 03/21/17 06:15 03/21/17 23:23 (Benadryl) 25 mg HS PRN PO 03/21/17 23:15 03/22/17 23:35 (Ultram) 50 mg Q8H PRN PO 03/22/17 07:15 03/23/17 05:41 Lactated Ringer's 1,000 ml @ 30 mls/hr Q24H PRN IV 03/23/17 04:15 03/26/17 04:14 Sodium Chloride 500 ml @ 30 mls/hr [id number] PRN IV 03/23/17 04:15 03/26/17 04:14 03/23/17 14:13 (Betadine 5% Antisepsis Kit) 1 applic RUNSTITCHING MACHINE OPERATOR PRN EACH NARE 03/23/17 04:15 03/26/17 04:14 (Chlorhexidine 2% Cloth) 3 pack RUNSTITCHING MACHINE OPERATOR PRN TOPICAL 03/23/17 04:15 03/26/17 04:14 (NovoLIN R INJ) See Protocol Table ... RUNSTITCHING MACHINE OPERATOR PRN SQ 03/23/17 04:15 03/26/17 04:14 (NS Flush) 2 ml BID IV FLUSH 03/23/17 21:00 (NS Flush) 2 ml UNSCH PRN IV FLUSH 03/23/17 13:15 Dexmedetomidine HCl 200 mcg/ Sodium Chloride 52 ml @ 6.66 mls/hr TITRATE PRN IV 03/23/17 13:15 Nitroglycerin/ Dextrose 250 ml @ 1.5 mls/hr TITRATE PRN IV 03/23/17 13:15 Dobutamine HCl/ Dextrose 250 ml @ 19.23 mls/ hr Q13H IV 03/23/17 13:08 Dopamine HCl/ Dextrose 500 ml @ 14.423 mls/ hr TITRATE PRN IV 03/23/17 13:15 Phenylephrine HCl 40 mg/Dextrose 500 ml @ 30 mls/hr TITRATE PRN IV 03/23/17 13:15 Clevidipine 50 ml @ 2 mls/hr TITRATE PRN IV 03/23/17 13:15 (Albumin 5% Inj) 12.5 gm UNSCH PRN IV 03/23/17 13:15 Lactated Ringer's 500 ml @ 500 mls/hr Q1H PRN IV 03/23/17 13:08 (Aspirin Chew) 81 mg DAILY PO 03/24/17 09:00 (Plavix) 75 mg DAILY PO 03/24/17 09:00 (Protonix) 40 mg DAILY@06 PO 03/24/17 06:00 (Cordarone) 200 mg Q12HR PO 03/23/17 21:00 (Tylenol) 650 mg Q4H PRN PO 03/23/17 13:15 (Tylenol Supp) 650 mg Q4H PRN RECTAL 03/23/17 13:15 (Ofirmev Inj) 1,000 mg Q6H IV 03/23/17 15:00 03/24/17 09:01 03/23/17 15:01 (Morphine Inj) 1 mg Q10M PRN IV 03/23/17 13:15 (Demerol Inj) 12.5 mg Q4H PRN IV 03/23/17 13:15 ([place] 5-325 Mg) 1 tab Q3H PRN PO 03/23/17 13:15 (fentaNYL INJ) 25 mcg Q1H PRN IV 03/23/17 13:15 (Zofran Inj) 4 mg Q6H PRN IV PUSH 03/23/17 13:15 (Apresoline Inj) 10 mg Q4H PRN IV 03/23/17 13:15 (Lopressor Inj) 2.5 mg Q1H PRN IV PUSH 03/23/17 13:15 Potassium Chloride 100 ml @ 50 mls/hr UNSCH PRN IV 03/23/17 13:15 Potassium Chloride 100 ml @ 50 mls/hr UNSCH PRN IV 03/23/17 13:15 Potassium Chloride 100 ml @ 50 mls/hr UNSCH PRN IV 03/23/17 13:15 (KCl) 20 meq UNSCH PRN PO 03/23/17 13:15 (KCl) 40 meq UNSCH PRN PO 03/23/17 13:15 Magnesium Sulfate 2 gm/Sodium Chloride 104 ml @ 100 mls/hr UNSCH PRN IV 03/23/17 13:15 Magnesium Sulfate 2 gm/Sodium Chloride 104 ml @ 50 mls/hr UNSCH PRN IV 03/23/17 13:15 Calcium Chloride 1 gm/Sodium Chloride 110 ml @ 100 mls/hr UNSCH PRN IV 03/23/17 13:15 (Calcium Chloride Inj) 0.5 gm UNSCH PRN IV 03/23/17 13:15 Insulin Human Regular 100 units/ Sodium Chloride 100 ml @ 0 mls/hr TITRATE IV 03/23/17 13:15 (D50w (Vial) Inj) 50 ml UNSCH PRN IV PUSH 03/23/17 13:15 Cefazolin Sodium/ Dextrose 50 ml @ 100 mls/hr Q8H IV 03/23/17 21:00 03/25/17 05:29 (Duoneb Neb) 1 ampule Q6HR NEB NEB 03/23/17 16:00 03/23/17 16:00 (Duoneb Neb) 1 ampule Q2HR NEB PRN NEB 03/23/17 13:15 (Racepinephrine 2.25% Neb) 0.5 ml UNSCH X1 PRN NEB 03/23/17 13:15 03/24/17 13:14 Vital Signs / I&O Vital Signs Date Time Temp Pulse Resp B/P (MAP) Pulse Ox O2 Delivery O2 Flow Rate FiO2 03/23/17 16:21 19 03/23/17 15:15 91 03/23/17 15:13 98.7 91 19 134/79 (97) 95 03/23/17 14:35 98.0 03/23/17 14:18 97 Nasal Cannula 6.00 03/23/17 14:16 98.7 88 16 148/80 (102) 95 03/23/17 14:00 92 Nasal Cannula 5 03/23/17 13:46 97 60 03/23/17 06:00 66 03/23/17 05:40 97.5 67 14 160/88 (112) 98 03/23/17 05:00 66 03/23/17 04:00 86 03/23/17 03:00 62 03/23/17 02:00 64 03/23/17 01:00 68 03/23/17 00:00 86 03/22/17 23:35 97 03/22/17 23:30 98.2 67 14 127/82 (97) 97 03/22/17 23:00 72 03/22/17 22:00 74 03/22/17 21:00 72 03/22/17 20:00 76 03/22/17 19:51 98.4 78 20 147/78 (101) 97 03/22/17 18:00 80 03/22/17 17:00 70 I/O 03/22/17 03/22/17 03/22/17 03/23/17 03/23/17 03/23/17 07:00 15:00 23:00 07:00 15:00 23:00 Intake Total 786 ml 1200 ml 843 ml 3400 ml Output Total 575 ml 1050 ml 1325 ml 700 ml Balance 211 ml 150 ml -482 ml 2700 ml Intake Oral 660 ml 1200 ml 700 ml IV Total 126 ml 143 ml 2650 ml Autotransfusion 750 ml Output Urine Total 575 ml 1050 ml 1325 ml 450 ml Estimated Blood Loss 250 ml # Voids 3 # Bowel Movements 1 1 Physical Exam GENERAL: NAD SKIN: Warm and dry. HEAD: Atraumatic. Normocephalic. EYES: Pupils equal and round. No scleral icterus. No injection or drainage. ENT: No nasal bleeding or discharge. Mucous membranes pink and moist. NECK: Trachea midline. No JVD. CARDIOVASCULAR: Irregularly irregular. Sternotomy with wound vac RESPIRATORY: No accessory muscle use. Decreased breath sounds bilaterally GASTROINTESTINAL: Abdomen soft, non-tender, nondistended. Hepatic and splenic margins not palpable. MUSCULOSKELETAL: Extremities without clubbing, cyanosis, or edema. No obvious deformities. Right radial with no hematoma, neurovascularly intact distally NEUROLOGICAL: Awake and alert. No obvious cranial nerve deficits. Motor grossly within normal limits. Five out of 5 muscle strength in the arms and legs. Normal speech. PSYCHIATRIC: Appropriate mood and affect; insight and judgment normal. Laboratory Laboratory Tests Test 03/23/17 04:22 Activated Partial Thromboplast Time 43.3 SEC Assessment and Plan Problem List: (1) NSTEMI (non-ST elevated myocardial infarction) ICD Codes: I21.4 - Non-ST elevation (NSTEMI) myocardial infarction Status: Acute (2) Chest pain ICD Codes: R07.9 - Chest pain, unspecified Status: Acute (3) CAD (coronary artery disease) ICD Codes: I25.10 - Atherosclerotic heart disease of [place] coronary artery without angina pectoris Status: Chronic (4) Hypertension ICD Codes: I10 - Essential (primary) hypertension Status: Chronic (5) Hyperlipidemia ICD Codes: E78.5 - Hyperlipidemia, unspecified Status: Chronic (6) New onset a-fib ICD Codes: I48.91 - Unspecified atrial fibrillation Status: Acute (7) S/P CABG x 3 ICD Codes: Z95.1 - Presence of aortocoronary bypass graft Assessment and Plan 1) CABG POD #0 WEI to LAD SVG to OM1 SVG to PDA 2) NSTEMI on presentation 3) ASA/Plavix/BB/Statin/Amio 4) EF 40-45% pre-operatively 5) Will have to see about overall BP control post-op Venkata Mehta DO Mar 23, 2017 16:59
[2017-03-23] MEDS: ceFAZolin 2 GM PREMIX 50 ML IV SCH (21:28)
[2017-03-23] MEDS: ATORVASTATIN 80 MG TAB PO SCH (21:28)
[2017-03-23] MEDS: AMIODARONE 200 MG TAB PO SCH (21:28)
[2017-03-23] MEDS: ACETAMINOPHEN/HYDROcodone 325 MG/5 MG TAB PO PRN (22:05)
[2017-03-24] VITALS (21 sets, daily range): BP systolic 122–150; BP diastolic 67–84; PULSE 76–87; RESP 15–22; TEMP 98.1–98.9; O2SAT 94–99
[2017-03-24] MEDS: DOBUTamine PREMIX DRIP 250 ML IV SCH (02:08)
[2017-03-24] MEDS: ACETAMINOPHEN 1000 MG/100 ML VIAL IV SCH ×2 (03:16→08:58)
[2017-03-24] MEDS: ACETAMINOPHEN/HYDROcodone 325 MG/5 MG TAB PO PRN ×8 (03:16→21:40)
[2017-03-24] MEDS: RESP: ALBUTEROL 2.5 MG/IPRATROPIUM 0.5 MG NEB (SCH) NEB ×3 (03:22→21:39)
[2017-03-24 04:36] LABS: HEMATOCRIT 37.6 % (39.0-51.0); MEAN CELL VOLUME 84.7 FL (80.0-100.0); MEAN CORPUSCULAR HEMOGLOBIN 27.7 PG (27.0-34.0); MEAN CORPUSCULAR HGB CONC 32.7 % (32.0-36.0); PLATELET COUNT 211 TH/MM3 (150-450); RED BLOOD COUNT 4.44 MIL/MM3 (4.50-5.90); RED CELL DISTRIBUTION WIDTH 14.2 % (11.6-17.2); REVIEW FLAG FINAL; WHITE BLOOD COUNT 18.1 TH/MM3 (4.0-11.0)
--- NOTE | 2017-03-24 04:49 | RADRPT ---
EXAM DATE/TIME: 03/24/2017 04:09 [facility] COMPARISON: CHEST SINGLE AP, March 23, 2017, 14:00. INDICATIONS : Short of breath. MEDICAL HISTORY : Hypercholesterolemia. Hypertension Myocardial infarction. Coronary artery SURGICAL HISTORY : Coronary artery stent. ENCOUNTER: Subsequent ACUITY: 4 - 6 days PAIN SCORE: 0/10 LOCATION: Bilateral chest FINDINGS: A single view of the chest demonstrates a central and left-sided chest tube. Right central line in holm perior vena cava. Basilar and dependent airspace disease similar to March 23. No pneumothorax. CONCLUSION: 1. Right central line and chest tubes unchanged. No pneumothorax. Basilar and dependent airspace dise ase in the lungs. Darwin Mccray MD on March 24, 2017 at 4:46 Board Certified Radiologist. This report was verified electronically.
[2017-03-24 05:01] LABS: BICARBONATE 23.7 MEQ/L (21.0-32.0); POTASSIUM 4.6 MEQ/L (3.5-5.1)
[2017-03-24] MEDS: ceFAZolin 2 GM PREMIX 50 ML IV SCH ×3 (05:48→20:24)
[2017-03-24] MEDS: PANTOPRAZOLE SOD 40 MG DELAYED RELEASE TAB PO SCH ×2 (05:49→08:59)
[2017-03-24] MEDS: DOCUSATE SODIUM 50 MG/SENNA 8.6 MG TAB PO SCH (08:59)
[2017-03-24] MEDS: SODIUM CHLORIDE 0.9% FLUSH 10 ML FLUSH IV FLUSH SCH ×3 (08:59→20:24)
[2017-03-24] MEDS: ASPIRIN 81 MG CHEW TAB PO SCH (08:59)
[2017-03-24] MEDS: AMIODARONE 200 MG TAB PO SCH ×2 (09:00→20:23)
[2017-03-24] MEDS: CLOPIDOGREL 75 MG TAB PO SCH (09:00)
[2017-03-24] MEDS: METOPROLOL TARTRATE 25 MG TAB PO SCH ×2 (09:00→20:23)
[2017-03-24] MEDS ORDERED: GLUCAGON 1 MG/ML VIAL OTHER PRN (09:15)
[2017-03-24] MEDS ORDERED: DEXTROSE 50% IN WATER 50 ML VIAL(D50) IV PRN (09:15)
[2017-03-24] MEDS ORDERED: BISACODYL 10 MG SUPP RECTAL PRN (09:15)
[2017-03-24] MEDS: DOCUSATE SODIUM 100 MG CAP PO SCH ×2 (09:15→20:23)
[2017-03-24] MEDS ORDERED: SOD PHOSPHATE/SOD BIPHOSPHATE (ADULT) ENEMA 133ML RECTAL PRN (09:15)
[2017-03-24] MEDS: INSULIN ASPART SUPPLEMENTAL SCALE SQ SCH ×4 (10:00→21:46)
--- NOTE | 2017-03-24 11:09 | ECHRPT ---
Indication: CONCLUSIONS The left ventricle is not well visualized. The left ventricular systolic function is moderately reduced with an estimated ejection fraction in the range of 40-45%. Global hypokinesis There was limited left ventricular wall motion assessment due to poor endocardial visualization. Definity contrast used to assist in LV visualization. BP: / HR: Rhythm: Atrial fibrillation MEASUREMENTS (Male / Female) Normal Values Technical Quality:Poor 2D ECHO LV Ejection Fraction MOD 4C 50.4 % LV Ejection Fraction 4C AL 55.1 % FINDINGS LEFT VENTRICLE The left ventricle is not well visualized. The left ventricular systolic function is moderately reduced with an estimated ejection fraction in the range of 40-45%. There was limited left ventricular wall motion assessment due to poor endocardial visualization. Sunday Moon MD Edited by: [employer] Departmental Buyer (Electronically Signed) Final Date:21 March 2017 14:47 Amended: 24 March 2017 11:09
--- NOTE | 2017-03-24 14:14 | EKG ---
Date Performed: 03/24/2017 Time Performed: 05:05:06 PTAGE: 81 years EKG: Sinus rhythm . Inferior infarct - age undetermined Possible anterior infarct - age undetermined Abnormal ECG Walker red to PREVIOUS TRACING , there has been some loss of anterior R-wave forces. The previously not ed atrial fibrillation has resolved. PREVIOUS TRACIN03/20/2017 02.52 DOCTOR: Julia Gomez Interpretating Date/Time 03/24/2017 14:12:23
--- NOTE | 2017-03-24 14:45 | PD.CAR.PN ---
CVT Progress Note Subjective/Hospital Course: 81/ male / presented to ED with chest pain , found to have an elevated trop and Afib RVR, started on cardizem. Underwent cardiac cath by Dr Mehta , found to have 20% L Main, 100% mid/distal LAD, daig 80%, CX 80% OM 70% RCA 100%. We were consulted to eval for CABG. ECHO: EF 40-45% global hypokinesis LVSF moderate reduced PMH: CAD/ prior NH/ PCI/ stents x 3 , Afib , HTN, HLP essential tremors Pt for surgery today 03/23 surgery: 1. Urgent Off-pump Coronary Artery Bypass Grafting x 3 with Left Internal Mammary Artery (WEI) to Left Anterior Descending (LAD), reverse saphenous vein graft to the Obtuse Marginal 1 branch of the Circumflex artery, reverse saphenous vein graft to the Posterior Descending (RPDA) branch of the Right Coronary Artery (RCA), Left Leg Endoscopic Vein [place], . 03/24 up in chair, doing well on nasal cannula wants to have triglycerides rechecked >[address] Mehta will transfer to stepdown will need PT continue pulm toileting Objective: GENERAL: SKIN: Warm and dry. prevena to chest / incision to left leg HEAD: Normocephalic. EYES: No scleral icterus. No injection or drainage. NECK: Supple, trachea midline. No JVD or lymphadenopathy. CARDIOVASCULAR: Regular rate and rhythm without murmurs, gallops, or rubs. mild general edema RESPIRATORY: Breath sounds equal bilaterally. No accessory muscle use. diminished in bases, chest tube to wall suction/ drained 220cc/ 12 hrs, no air leak GASTROINTESTINAL: Abdomen soft, non-tender, nondistended. MUSCULOSKELETAL: No cyanosis, or edema. BACK: Nontender without obvious deformity. No CVA tenderness. Vital Signs Date Time Temp Pulse Resp B/P (MAP) Pulse Ox O2 Delivery O2 Flow Rate FiO2 03/24/17 14:01 98 Nasal Cannula 3.00 03/24/17 13:00 98.1 78 20 139/84 (102) 99 03/24/17 11:02 84 03/24/17 11:02 98.2 84 19 137/74 (95) 94 Arterial Line 03/24/17 07:47 98.3 84 19 122/68 (86) 98 03/24/17 07:46 84 8/22/17 07:42 97 Nasal Cannula 4.00 03/24/17 06:00 89 141/62 03/24/17 05:00 89 142/70 03/24/17 04:00 83 128/70 03/24/17 03:27 98.2 76 15 126/76 (93) 95 138/71 (93) 03/24/17 03:27 78 03/24/17 03:22 96 Nasal Cannula 4.00 03/24/17 03:16 76 138/71 03/24/17 02:00 77 137/71 03/24/17 01:00 76 144/76 03/24/17 00:15 72 158/80 03/23/17 23:17 80 03/23/17 23:17 98.0 80 16 121/75 (90) 95 138/78 (98) 03/23/17 19:21 97.9 81 18 124/70 (88) 97 122/64 (83) 03/23/17 19:21 97 Nasal Cannula 4.00 03/23/17 19:00 80 03/23/17 16:21 19 03/23/17 15:15 91 03/23/17 15:13 98.7 91 19 134/79 (97) 95 03/23/17 14:35 98.0 Labs: Laboratory Tests Test 03/24/17 04:05 White Blood Count 18.1 TH/MM3 (4.0-11.0) Red Blood Count 4.44 MIL/MM3 (4.50-5.90) Hemoglobin 12.3 GM/DL (13.0-17.0) Hematocrit 37.6 % (39.0-51.0) Mean Corpuscular Volume 84.7 FL (80.0-100.0) Mean Corpuscular Hemoglobin 27.7 PG (27.0-34.0) Mean Corpuscular Hemoglobin Concent 32.7 % (32.0-36.0) Red Cell Distribution Width 14.2 % (11.6-17.2) Platelet Count 211 TH/MM3 (150-450) Mean Platelet Volume 7.9 FL (7.0-11.0) Blood Urea Nitrogen 19 MG/DL (7-18) Creatinine 1.47 MG/DL (0.60-1.30) Random Glucose 121 MG/DL (74-106) Calcium Level 8.1 MG/DL (8.5-10.1) Magnesium Level 2.0 MG/DL (1.5-2.5) Sodium Level 135 MEQ/L (136-145) Potassium Level 4.6 MEQ/L (3.5-5.1) Chloride Level 101 MEQ/L (98-107) Carbon Dioxide Level 23.7 MEQ/L (21.0-32.0) Anion Gap 10 MEQ/L (5-15) Estimat Glomerular Filtration Rate 46 ML/MIN (>89) Result Diagram: 03/24/1740403/24/17404 Telemetry: NSR (1) NSTEMI (non-ST elevated myocardial infarction) (2) S/P CABG x 3 Plan: ASA, statin , BB, plavix, amiodarone hold on diuresis pulm toileting EF 25% / 40% re-eval echo on thur OOB, ambulate (3) Chest pain (4) CAD (coronary artery disease) (5) Hypertension Plan: stable (6) Hyperlipidemia Plan: on statin , may need feno-fibrate / dietary consult (7) New onset a-fib Plan: now in NSR / re-discuss restarting / starting NOAC Kerri Lewis Mar 24, 2017 14:45
--- NOTE | 2017-03-24 18:47 | PD.CARD.PN ---
Subjective Subjective Remarks Appropriate sternal pain No events overnight Doing well Objective Medications Current Medications Medications (Trade) Dose Ordered Sig/Makayla Route Start Time Stop Time Status Last Admin (Dulcolax Supp) 10 mg DAILY PRN RECTAL 03/19/17 14:30 (Lactulose Liq) 30 ml DAILY PRN PO 03/19/17 14:30 (Lopressor) 25 mg BID PO 03/20/17 09:00 03/24/17 09:00 (Lipitor) 80 mg HS PO 03/20/17 21:00 03/23/17 21:28 (Catapres) 0.1 mg Q6H PRN PO 03/21/17 06:15 03/21/17 23:23 (Benadryl) 25 mg HS PRN PO 03/21/17 23:15 03/22/17 23:35 (Ultram) 50 mg Q8H PRN PO 03/22/17 07:15 03/23/17 05:41 (NS Flush) 2 ml BID IV FLUSH 03/23/17 21:00 (NS Flush) 2 ml UNSCH PRN IV FLUSH 03/23/17 13:15 (Aspirin Chew) 81 mg DAILY PO 03/24/17 09:00 03/24/17 08:59 (Plavix) 75 mg DAILY PO 03/24/17 09:00 03/24/17 09:00 (Protonix) 40 mg DAILY@06 PO 03/24/17 06:00 03/24/17 05:49 (Cordarone) 200 mg Q12HR PO 03/23/17 21:00 03/24/17 09:00 (Tylenol) 650 mg Q4H PRN PO 03/23/17 13:15 ([place] 5-325 Mg) 1 tab Q3H PRN PO 03/23/17 13:15 03/24/17 18:41 (Zofran Inj) 4 mg Q6H PRN IV PUSH 03/23/17 13:15 (Apresoline Inj) 10 mg Q4H PRN IV 03/23/17 13:15 Cefazolin Sodium/ Dextrose 50 ml @ 100 mls/hr Q8H IV 03/23/17 21:00 03/25/17 05:29 03/24/17 12:46 (Duoneb Neb) 1 ampule Q2HR NEB PRN NEB 03/23/17 13:15 (Duoneb Neb) 1 ampule Q6HR WHILE AWAKE NEB NEB 03/24/17 14:00 03/26/17 13:59 03/24/17 13:57 (Colace) 100 mg BID PO 03/24/17 09:15 03/24/17 09:15 (Theragran M Tab) 1 tab DAILY PO 03/25/17 09:00 (Milk Of Magnesia Liq) 30 ml DAILY PO 03/25/17 09:00 (Dulcolax Supp) 10 mg UNSCH PRN RECTAL 03/24/17 09:15 03/25/17 09:14 (Miralax) 17 gm DAILY PO 03/25/17 09:00 (Senokot) 8.6 mg HS PO 03/24/17 21:00 (Fleets Enema (Adult)) 133 ml UNSCH PRN RECTAL 03/24/17 09:15 (NovoLOG SUPPLEMENTAL SCALE) 1 02,06,10,14,18,22 SQ 03/24/17 10:00 03/24/17 15:04 (D50w (Vial) Inj) 50 ml UNSCH PRN IV 03/24/17 09:15 (Glucagon Inj) 1 mg UNSCH PRN OTHER 03/24/17 09:15 Vital Signs / I&O Vital Signs Date Time Temp Pulse Resp B/P (MAP) Pulse Ox O2 Delivery O2 Flow Rate FiO2 03/24/17 18:01 82 03/24/17 17:00 80 03/24/17 16:00 84 03/24/17 15:15 98.9 83 20 126/67 (86) 96 03/24/17 15:00 87 03/24/17 14:01 98 Nasal Cannula 3.00 03/24/17 14:01 78 03/24/17 13:00 98.1 78 20 139/84 (102) 99 03/24/17 13:00 76 03/24/17 12:00 83 03/24/17 11:02 84 03/24/17 11:02 98.2 84 19 137/74 (95) 94 Arterial Line 03/24/17 07:47 98.3 84 19 122/68 (86) 98 03/24/17 07:46 84 03/24/17 07:42 97 Nasal Cannula 4.00 03/24/17 06:00 89 141/62 03/24/17 05:00 89 142/70 03/24/17 04:00 83 128/70 03/24/17 03:27 98.2 76 15 126/76 (93) 95 138/71 (93) 03/24/17 03:27 78 03/24/17 03:22 96 Nasal Cannula 4.00 03/24/17 03:16 76 138/71 03/24/17 02:00 77 137/71 03/24/17 01:00 76 144/76 03/24/17 00:15 72 158/80 03/23/17 23:17 80 03/23/17 23:17 98.0 80 16 121/75 (90) 95 138/78 (98) 03/23/17 19:21 97.9 81 18 124/70 (88) 97 122/64 (83) 03/23/17 19:21 97 Nasal Cannula 4.00 03/23/17 19:00 80 I/O 03/23/17 03/23/17 03/23/17 03/24/17 03/24/17 03/24/17 06:59 14:59 22:59 06:59 14:59 22:59 Intake Total 843 ml 3400 ml 188 ml 700 ml 290 ml 650 ml Output Total 1325 ml 700 ml 445 ml 655 ml 600 ml Balance -482 ml 2700 ml -257 ml 45 ml 290 ml 50 ml Intake Oral 700 ml 20 ml 480 ml 600 ml IV Total 143 ml 2650 ml 168 ml 220 ml 290 ml 50 ml Autotransfusion 750 ml Output Urine Total 1325 ml 450 ml 195 ml 435 ml 400 ml Chest Tube Drainage Total 250 ml 220 ml 200 ml Estimated Blood Loss 250 ml # Voids 1 # Bowel Movements 0 0 0 Physical Exam GENERAL: NAD SKIN: Warm and dry. HEAD: Atraumatic. Normocephalic. EYES: Pupils equal and round. No scleral icterus. No injection or drainage. ENT: No nasal bleeding or discharge. Mucous membranes pink and moist. NECK: Trachea midline. No JVD. CARDIOVASCULAR: Irregularly irregular. Sternotomy with wound vac RESPIRATORY: No accessory muscle use. Decreased breath sounds bilaterally GASTROINTESTINAL: Abdomen soft, non-tender, nondistended. Hepatic and splenic margins not palpable. MUSCULOSKELETAL: Extremities without clubbing, cyanosis, or edema. No obvious deformities. Right radial with no hematoma, neurovascularly intact distally NEUROLOGICAL: Awake and alert. No obvious cranial nerve deficits. Motor grossly within normal limits. Five out of 5 muscle strength in the arms and legs. Normal speech. PSYCHIATRIC: Appropriate mood and affect; insight and judgment normal. Laboratory Laboratory Tests Test 03/24/17 04:05 White Blood Count 18.1 TH/MM3 Red Blood Count 4.44 MIL/MM3 Hemoglobin 12.3 GM/DL Hematocrit 37.6 % Mean Corpuscular Volume 84.7 FL Mean Corpuscular Hemoglobin 27.7 PG Mean Corpuscular Hemoglobin Concent 32.7 % Red Cell Distribution Width 14.2 % Platelet Count 211 TH/MM3 Mean Platelet Volume 7.9 FL Blood Urea Nitrogen 19 MG/DL Creatinine 1.47 MG/DL Random Glucose 121 MG/DL Calcium Level 8.1 MG/DL Magnesium Level 2.0 MG/DL Sodium Level 135 MEQ/L Potassium Level 4.6 MEQ/L Chloride Level 101 MEQ/L Carbon Dioxide Level 23.7 MEQ/L Anion Gap 10 MEQ/L Estimat Glomerular Filtration Rate 46 ML/MIN Assessment and Plan Problem List: (1) NSTEMI (non-ST elevated myocardial infarction) ICD Codes: I21.4 - Non-ST elevation (NSTEMI) myocardial infarction Status: Acute (2) S/P CABG x 3 ICD Codes: Z95.1 - Presence of aortocoronary bypass graft (3) Chest pain ICD Codes: R07.9 - Chest pain, unspecified Status: Acute (4) CAD (coronary artery disease) ICD Codes: I25.10 - Atherosclerotic heart disease of [place] coronary artery without angina pectoris Status: Chronic (5) Hypertension ICD Codes: I10 - Essential (primary) hypertension Status: Chronic (6) Hyperlipidemia ICD Codes: E78.5 - Hyperlipidemia, unspecified Status: Chronic (7) New onset a-fib ICD Codes: I48.91 - Unspecified atrial fibrillation Status: Acute Assessment and Plan 1) CABG POD #1 WEI to LAD SVG to OM1 SVG to PDA 2) NSTEMI on presentation 3) ASA/Plavix/BB/Statin/Amio For heart rate control prefer Lopressor over Propranolol (previously on for his tremors) Hypertriglyceridemia, will start with Lipitor and diet, most likely will need further intervention 4) EF 40-45% pre-operatively 5) Blood pressure currently controlled Mehta,Vincent G DO Mar 24, 2017 18:47
[2017-03-24] MEDS: SENNOSIDES 8.6 MG TAB PO SCH (20:23)
[2017-03-24] MEDS: traMADol HCL 50 MG TAB PO PRN (20:23)
[2017-03-24] MEDS: ATORVASTATIN 80 MG TAB PO SCH (20:23)
[2017-03-25] VITALS (27 sets, daily range): BP systolic 120–174; BP diastolic 69–90; PULSE 70–94; RESP 18–22; TEMP 97.9–98.6; O2SAT 92–97
[2017-03-25] MEDS: INSULIN ASPART SUPPLEMENTAL SCALE SQ SCH ×5 (01:37→21:23)
[2017-03-25] MEDS: ACETAMINOPHEN/HYDROcodone 325 MG/5 MG TAB PO PRN ×4 (04:33→21:19)
[2017-03-25] MEDS: ceFAZolin 2 GM PREMIX 50 ML IV SCH (04:33)
[2017-03-25 05:09] LABS: AUTOMATED NEUTROPHIL # 13.9 TH/MM3 (1.8-7.7); BASOPHIL % 0.2 % (0.0-2.0); EOSINOPHIL % 0.2 % (0.0-4.0); HEMATOCRIT 33.3 % (39.0-51.0); HEMO FLAGS DIFF FINAL; LYMPH % 11.2 % (9.0-44.0); MEAN CELL VOLUME 85.1 FL (80.0-100.0); MEAN CORPUSCULAR HEMOGLOBIN 28.3 PG (27.0-34.0); MEAN CORPUSCULAR HGB CONC 33.3 % (32.0-36.0); MONO % 10.1 % (0.0-8.0); NEUT % 78.3 % (16.0-70.0); PLATELET COUNT 179 TH/MM3 (150-450); RED BLOOD COUNT 3.92 MIL/MM3 (4.50-5.90); WHITE BLOOD COUNT 17.8 TH/MM3 (4.0-11.0)
[2017-03-25 05:30] LABS: BICARBONATE 25.3 MEQ/L (21.0-32.0); MAGNESIUM 2.2 MG/DL (1.5-2.5); POTASSIUM 4.3 MEQ/L (3.5-5.1)
[2017-03-25] MEDS: PANTOPRAZOLE SOD 40 MG DELAYED RELEASE TAB PO SCH (05:55)
[2017-03-25] MEDS: RESP: ALBUTEROL 2.5 MG/IPRATROPIUM 0.5 MG NEB (SCH) NEB ×3 (08:00→21:10)
[2017-03-25] MEDS: CLOPIDOGREL 75 MG TAB PO SCH (08:04)
[2017-03-25] MEDS: POLYETHYLENE GLYCOL 17 GM PKG PO SCH (08:04)
[2017-03-25] MEDS: MAGNESIUM HYDROXIDE SUSP 30 ML CUP PO SCH (08:04)
[2017-03-25] MEDS: AMIODARONE 200 MG TAB PO SCH ×2 (08:05→21:20)
[2017-03-25] MEDS: MULTIVITAMINS/MINERALS THERAPEUTIC TAB PO SCH (08:05)
[2017-03-25] MEDS: DOCUSATE SODIUM 100 MG CAP PO SCH ×2 (08:05→21:00)
[2017-03-25] MEDS: ASPIRIN 81 MG CHEW TAB PO SCH (08:05)
[2017-03-25] MEDS: SODIUM CHLORIDE 0.9% FLUSH 10 ML FLUSH IV FLUSH SCH ×2 (08:06→21:21)
[2017-03-25] MEDS: METOPROLOL TARTRATE 25 MG TAB PO SCH ×3 (08:13→21:20)
[2017-03-25] MEDS ORDERED: FUROSEMIDE 20 MG/2 ML VIAL IV PUSH ONE (11:30)
[2017-03-25] MEDS ORDERED: POTASSIUM CHLORIDE 10 MEQ CONTROLLED RELEASE TAB PO ONE (11:30)
--- NOTE | 2017-03-25 17:16 | PD.CARD.PN ---
Subjective Subjective Remarks Patient seen this morning Doing well overall No complaints Up and ambulating Objective Medications Current Medications Medications (Trade) Dose Ordered Sig/Makayla Route Start Time Stop Time Status Last Admin (Dulcolax Supp) 10 mg DAILY PRN RECTAL 03/19/17 14:30 (Lactulose Liq) 30 ml DAILY PRN PO 03/19/17 14:30 (Lipitor) 80 mg HS PO 03/20/17 21:00 03/24/17 20:23 (Catapres) 0.1 mg Q6H PRN PO 03/21/17 06:15 03/21/17 23:23 (Benadryl) 25 mg HS PRN PO 03/21/17 23:15 03/22/17 23:35 (Ultram) 50 mg Q8H PRN PO 03/22/17 07:15 03/24/17 20:23 (NS Flush) 2 ml BID IV FLUSH 03/23/17 21:00 03/25/17 08:06 (NS Flush) 2 ml UNSCH PRN IV FLUSH 03/23/17 13:15 (Aspirin Chew) 81 mg DAILY PO 03/24/17 09:00 03/25/17 08:05 (Plavix) 75 mg DAILY PO 03/24/17 09:00 03/25/17 08:04 (Protonix) 40 mg DAILY@06 PO 03/24/17 06:00 03/25/17 05:55 (Cordarone) 200 mg Q12HR PO 03/23/17 21:00 03/25/17 08:05 (Tylenol) 650 mg Q4H PRN PO 03/23/17 13:15 (Zofran Inj) 4 mg Q6H PRN IV PUSH 03/23/17 13:15 (Apresoline Inj) 10 mg Q4H PRN IV 03/23/17 13:15 (Duoneb Neb) 1 ampule Q2HR NEB PRN NEB 03/23/17 13:15 (Duoneb Neb) 1 ampule Q6HR WHILE AWAKE NEB NEB 03/24/17 14:00 03/26/17 13:59 03/25/17 13:56 (Colace) 100 mg BID PO 03/24/17 09:15 03/25/17 08:05 (Theragran M Tab) 1 tab DAILY PO 03/25/17 09:00 03/25/17 08:05 (Milk Of Magnesia Liq) 30 ml DAILY PO 03/25/17 09:00 03/25/17 08:04 (Miralax) 17 gm DAILY PO 03/25/17 09:00 03/25/17 08:04 (Senokot) 8.6 mg HS PO 03/24/17 21:00 03/24/17 20:23 (Fleets Enema (Adult)) 133 ml UNSCH PRN RECTAL 03/24/17 09:15 (D50w (Vial) Inj) 50 ml UNSCH PRN IV 03/24/17 09:15 (Glucagon Inj) 1 mg UNSCH PRN OTHER 03/24/17 09:15 ([place] 5-325 Mg) 1 tab Q4H PRN PO 03/24/17 22:00 03/25/17 14:46 ([place] 5-325 Mg) 2 tab Q4H PRN PO 03/24/17 22:00 03/25/17 08:03 (Lopressor) 25 mg Q12HR PO 03/25/17 09:00 (NovoLOG SUPPLEMENTAL SCALE) 1 ACHS SQ 03/25/17 11:00 03/25/17 11:00 Vital Signs / I&O Vital Signs Date Time Temp Pulse Resp B/P (MAP) Pulse Ox O2 Delivery O2 Flow Rate FiO2 03/25/17 16:12 81 03/25/17 15:56 18 03/25/17 15:03 80 03/25/17 15:03 97 Room Air 03/25/17 15:03 98.0 83 18 124/71 (88) 94 03/25/17 14:19 85 03/25/17 14:01 95 03/25/17 13:00 77 03/25/17 12:00 74 03/25/17 11:00 97.9 74 18 120/74 (89) 97 03/25/17 11:00 97 Room Air 03/25/17 11:00 74 03/25/17 10:39 70 03/25/17 09:34 18 03/25/17 09:00 84 03/25/17 08:00 73 03/25/17 07:00 97 Nasal Cannula 3.00 03/25/17 07:00 97.9 94 18 129/77 (94) 03/25/17 06:00 78 03/25/17 05:00 76 03/25/17 04:00 76 03/25/17 03:30 98.0 75 20 147/73 (97) 97 03/25/17 03:00 74 03/25/17 02:00 77 03/25/17 01:02 78 03/25/17 00:00 75 03/24/17 23:05 98.6 80 20 135/74 (94) 97 03/24/17 23:00 77 03/24/17 22:00 82 03/24/17 21:39 95 Nasal Cannula 3.00 03/24/17 21:00 82 03/24/17 20:15 97 Nasal Cannula 3.00 03/24/17 20:15 98.9 83 22 150/80 (103) 97 03/24/17 20:00 82 03/24/17 19:00 84 03/24/17 18:01 82 I/O 03/24/17 03/24/17 03/24/17 03/25/17 03/25/17 03/25/17 07:00 15:00 23:00 07:00 15:00 23:00 Intake Total 694 ml 290 ml 685 ml 520 ml Output Total 655 ml 600 ml 850 ml Balance 39 ml 290 ml 85 ml -330 ml Intake Oral 480 ml 600 ml 480 ml IV Total 214 ml 290 ml 85 ml 40 ml Output Urine Total 435 ml 400 ml 800 ml Chest Tube Drainage Total 220 ml 200 ml 50 ml # Voids 1 # Bowel Movements 0 0 0 Physical Exam GENERAL: NAD SKIN: Warm and dry. HEAD: Atraumatic. Normocephalic. EYES: Pupils equal and round. No scleral icterus. No injection or drainage. ENT: No nasal bleeding or discharge. Mucous membranes pink and moist. NECK: Trachea midline. No JVD. CARDIOVASCULAR: Irregularly irregular. Sternotomy with wound vac RESPIRATORY: No accessory muscle use. Decreased breath sounds bilaterally GASTROINTESTINAL: Abdomen soft, non-tender, nondistended. Hepatic and splenic margins not palpable. MUSCULOSKELETAL: Extremities without clubbing, cyanosis, or edema. No obvious deformities. NEUROLOGICAL: Awake and alert. No obvious cranial nerve deficits. Motor grossly within normal limits. Five out of 5 muscle strength in the arms and legs. Normal speech. PSYCHIATRIC: Appropriate mood and affect; insight and judgment normal. Laboratory Laboratory Tests Test 8/23/17 04:40 White Blood Count 17.8 TH/MM3 Red Blood Count 3.92 MIL/MM3 Hemoglobin 11.1 GM/DL Hematocrit 33.3 % Mean Corpuscular Volume 85.1 FL Mean Corpuscular Hemoglobin 28.3 PG Mean Corpuscular Hemoglobin Concent 33.3 % Red Cell Distribution Width 14.0 % Platelet Count 179 TH/MM3 Mean Platelet Volume 8.1 FL Neutrophils (%) (Auto) 78.3 % Lymphocytes (%) (Auto) 11.2 % Monocytes (%) (Auto) 10.1 % Eosinophils (%) (Auto) 0.2 % Basophils (%) (Auto) 0.2 % Neutrophils # (Auto) 13.9 TH/MM3 Lymphocytes # (Auto) 2.0 TH/MM3 Monocytes # (Auto) 1.8 TH/MM3 Eosinophils # (Auto) 0.0 TH/MM3 Basophils # (Auto) 0.0 TH/MM3 CBC Comment DIFF FINAL Differential Comment Blood Urea Nitrogen 15 MG/DL Creatinine 1.21 MG/DL Random Glucose 141 MG/DL Calcium Level 7.9 MG/DL Magnesium Level 2.2 MG/DL Sodium Level 131 MEQ/L Potassium Level 4.3 MEQ/L Chloride Level 96 MEQ/L Carbon Dioxide Level 25.3 MEQ/L Anion Gap 10 MEQ/L Estimat Glomerular Filtration Rate 58 ML/MIN Assessment and Plan Problem List: (1) NSTEMI (non-ST elevated myocardial infarction) ICD Codes: I21.4 - Non-ST elevation (NSTEMI) myocardial infarction Status: Acute (2) S/P CABG x 3 ICD Codes: Z95.1 - Presence of aortocoronary bypass graft (3) Chest pain ICD Codes: R07.9 - Chest pain, unspecified Status: Acute (4) CAD (coronary artery disease) ICD Codes: I25.10 - Atherosclerotic heart disease of [place] coronary artery without angina pectoris Status: Chronic (5) Hypertension ICD Codes: I10 - Essential (primary) hypertension Status: Chronic (6) Hyperlipidemia ICD Codes: E78.5 - Hyperlipidemia, unspecified Status: Chronic (7) New onset a-fib ICD Codes: I48.91 - Unspecified atrial fibrillation Status: Acute Assessment and Plan 1) CABG POD #2 WEI to LAD SVG to OM1 SVG to PDA 2) NSTEMI on presentation 3) ASA/Plavix/BB/Statin/Amio For heart rate control prefer Lopressor over Propranolol (previously on for his tremors) Hypertriglyceridemia, will start with Lipitor and diet, most likely will need further intervention 4) EF 40-45% pre-operatively 5) Blood pressure currently controlled 6) Possible start Xarelto for previous Afib... will discuss further with CV surgery Venkata Mehta DO Mar 25, 2017 17:16
[2017-03-25] MEDS: SENNOSIDES 8.6 MG TAB PO SCH (21:00)
[2017-03-25] MEDS: ATORVASTATIN 80 MG TAB PO SCH (21:20)
[2017-03-26] VITALS (32 sets, daily range): BP systolic 113–145; BP diastolic 66–75; PULSE 73–114; RESP 18; TEMP 97.5–98.6; O2SAT 91–96
[2017-03-26] MEDS: ACETAMINOPHEN/HYDROcodone 325 MG/5 MG TAB PO PRN ×4 (01:45→20:44)
--- NOTE | 2017-03-26 04:45 | RADRPT ---
EXAM DATE/TIME: 03/26/2017 04:29 [place] COMPARISON: CHEST SINGLE AP, March 24, 2017, 4:09. INDICATIONS : Shortness of breath, possible pulmonary disease. MEDICAL HISTORY : Hypercholesterolemia. Hypertension Myocardial infarction. CAD SURGICAL HISTORY : Coronary artery stent. ENCOUNTER: Subsequent ACUITY: 1 week PAIN SCORE: 0/10 LOCATION: Bilateral chest FINDINGS: A single view of the chest demonstrates right central line in superior vena cava. Previous median harmony rnotomy. Mild basilar atelectasis. Removal of previous chest tube without pneumothorax. CONCLUSION: 1. Mild basilar atelectasis. Previous chest tube removed without pneumothorax. Right central line in superior vena cava. Darwin Mccray MD on March 26, 2017 at 4:43 Board Certified Radiologist. This report was verified electronically.
[2017-03-26 04:46] LABS: BICARBONATE 28.6 MEQ/L (21.0-32.0); POTASSIUM 4.1 MEQ/L (3.5-5.1)
[2017-03-26] MEDS: PANTOPRAZOLE SOD 40 MG DELAYED RELEASE TAB PO SCH (06:22)
[2017-03-26] MEDS: INSULIN ASPART SUPPLEMENTAL SCALE SQ SCH ×4 (06:23→20:53)
[2017-03-26] MEDS: MULTIVITAMINS/MINERALS THERAPEUTIC TAB PO SCH (07:47)
[2017-03-26] MEDS: AMIODARONE 200 MG TAB PO SCH ×2 (07:47→20:44)
[2017-03-26] MEDS: DOCUSATE SODIUM 100 MG CAP PO SCH ×2 (07:47→20:44)
[2017-03-26] MEDS: ASPIRIN 81 MG CHEW TAB PO SCH (07:47)
[2017-03-26] MEDS: METOPROLOL TARTRATE 25 MG TAB PO SCH ×2 (07:47→20:44)
[2017-03-26] MEDS: CLOPIDOGREL 75 MG TAB PO SCH (07:47)
[2017-03-26] MEDS: SODIUM CHLORIDE 0.9% FLUSH 10 ML FLUSH IV FLUSH SCH ×2 (07:48→20:45)
[2017-03-26] MEDS: MAGNESIUM HYDROXIDE SUSP 30 ML CUP PO SCH (07:48)
[2017-03-26] MEDS: POLYETHYLENE GLYCOL 17 GM PKG PO SCH (07:48)
[2017-03-26] MEDS: RESP: ALBUTEROL 2.5 MG/IPRATROPIUM 0.5 MG NEB (SCH) NEB ×2 (07:55→12:01)
--- NOTE | 2017-03-26 10:15 | PD.CARD.PN ---
Subjective Subjective Remarks No complaints overnight Went it Afib with RVR overnight, currently mostly controlled Objective Medications Current Medications Medications (Trade) Dose Ordered Sig/Makayla Route Start Time Stop Time Status Last Admin (Dulcolax Supp) 10 mg DAILY PRN RECTAL 03/19/17 14:30 (Lactulose Liq) 30 ml DAILY PRN PO 03/19/17 14:30 (Lipitor) 80 mg HS PO 03/20/17 21:00 03/25/17 21:20 (Catapres) 0.1 mg Q6H PRN PO 03/21/17 06:15 03/21/17 23:23 (Benadryl) 25 mg HS PRN PO 03/21/17 23:15 03/22/17 23:35 (Ultram) 50 mg Q8H PRN PO 03/22/17 07:15 03/24/17 20:23 (NS Flush) 2 ml BID IV FLUSH 03/23/17 21:00 03/26/17 07:48 (NS Flush) 2 ml UNSCH PRN IV FLUSH 03/23/17 13:15 (Aspirin Chew) 81 mg DAILY PO 03/24/17 09:00 03/26/17 07:47 (Plavix) 75 mg DAILY PO 03/24/17 09:00 03/26/17 07:47 (Protonix) 40 mg DAILY@06 PO 03/24/17 06:00 03/26/17 06:22 (Cordarone) 200 mg Q12HR PO 03/23/17 21:00 03/26/17 07:47 (Tylenol) 650 mg Q4H PRN PO 03/23/17 13:15 (Zofran Inj) 4 mg Q6H PRN IV PUSH 03/23/17 13:15 (Apresoline Inj) 10 mg Q4H PRN IV 03/23/17 13:15 (Duoneb Neb) 1 ampule Q2HR NEB PRN NEB 03/23/17 13:15 03/26/17 06:28 (Duoneb Neb) 1 ampule Q6HR WHILE AWAKE NEB NEB 03/24/17 14:00 03/26/17 13:59 03/25/17 21:10 (Colace) 100 mg BID PO 03/24/17 09:15 03/25/17 08:05 (Theragran M Tab) 1 tab DAILY PO 03/25/17 09:00 03/26/17 07:47 (Milk Of Magnesia Liq) 30 ml DAILY PO 03/25/17 09:00 03/25/17 08:04 (Miralax) 17 gm DAILY PO 03/25/17 09:00 03/25/17 08:04 (Senokot) 8.6 mg HS PO 03/24/17 21:00 03/24/17 20:23 (Fleets Enema (Adult)) 133 ml UNSCH PRN RECTAL 03/24/17 09:15 (D50w (Vial) Inj) 50 ml UNSCH PRN IV 03/24/17 09:15 (Glucagon Inj) 1 mg UNSCH PRN OTHER 03/24/17 09:15 ([place] 5-325 Mg) 1 tab Q4H PRN PO 03/24/17 22:00 03/25/17 21:19 ([place] 5-325 Mg) 2 tab Q4H PRN PO 03/24/17 22:00 03/26/17 06:22 (Lopressor) 25 mg Q12HR PO 03/25/17 09:00 03/26/17 07:47 (NovoLOG SUPPLEMENTAL SCALE) 1 ACHS SQ 03/25/17 11:00 03/25/17 21:23 Vital Signs / I&O Vital Signs Date Time Temp Pulse Resp B/P (MAP) Pulse Ox O2 Delivery O2 Flow Rate FiO2 03/26/17 09:00 81 03/26/17 08:07 93 Room Air 03/26/17 08:07 81 03/26/17 08:04 97.8 90 18 113/70 (84) 93 03/26/17 07:56 94 21 03/26/17 07:01 106 03/26/17 06:36 105 03/26/17 05:10 96 03/26/17 04:22 93 03/26/17 03:17 98.6 75 18 145/75 (98) 91 03/26/17 03:17 91 Room Air 03/26/17 03:00 76 03/26/17 02:17 77 03/26/17 01:00 73 03/26/17 00:00 78 03/25/17 23:00 72 03/25/17 23:00 92 Room Air 03/25/17 23:00 98.6 75 20 125/69 (87) 92 03/25/17 22:00 74 03/25/17 21:11 95 03/25/17 21:00 90 03/25/17 20:00 88 03/25/17 20:00 98.5 91 22 174/90 (118) 93 03/25/17 20:00 93 Room Air 03/25/17 19:00 87 03/25/17 18:11 86 03/25/17 17:00 87 03/25/17 16:12 81 03/25/17 15:56 18 03/25/17 15:03 80 03/25/17 15:03 97 Room Air 03/25/17 15:03 98.0 83 18 124/71 (88) 94 03/25/17 14:19 85 03/25/17 14:01 95 03/25/17 13:00 77 03/25/17 12:00 74 03/25/17 11:00 97.9 74 18 120/74 (89) 97 03/25/17 11:00 97 Room Air 03/25/17 11:00 74 03/25/17 10:39 70 I/O 03/25/17 03/25/17 03/25/17 03/26/17 03/26/17 03/26/17 07:00 15:00 23:00 07:00 15:00 23:00 Intake Total 520 ml 480 ml 680 ml Output Total 850 ml 1350 ml 1425 ml Balance -330 ml -870 ml -745 ml Intake Oral 480 ml 480 ml 680 ml IV Total 40 ml Output Urine Total 800 ml 1200 ml 1425 ml Chest Tube Drainage Total 50 ml 150 ml # Voids 2 # Bowel Movements 0 2 1 Physical Exam GENERAL: NAD SKIN: Warm and dry. HEAD: Atraumatic. Normocephalic. EYES: Pupils equal and round. No scleral icterus. No injection or drainage. ENT: No nasal bleeding or discharge. Mucous membranes pink and moist. NECK: Trachea midline. No JVD. CARDIOVASCULAR: Irregularly irregular. Sternotomy with wound vac RESPIRATORY: No accessory muscle use. Decreased breath sounds bilaterally GASTROINTESTINAL: Abdomen soft, non-tender, nondistended. Hepatic and splenic margins not palpable. MUSCULOSKELETAL: Extremities without clubbing, cyanosis, or edema. No obvious deformities. NEUROLOGICAL: Awake and alert. No obvious cranial nerve deficits. Motor grossly within normal limits. Five out of 5 muscle strength in the arms and legs. Normal speech. PSYCHIATRIC: Appropriate mood and affect; insight and judgment normal. Laboratory Laboratory Tests Test 03/26/17 04:00 Blood Urea Nitrogen 16 MG/DL Creatinine 1.15 MG/DL Random Glucose 139 MG/DL Calcium Level 8.0 MG/DL Sodium Level 132 MEQ/L Potassium Level 4.1 MEQ/L Chloride Level 96 MEQ/L Carbon Dioxide Level 28.6 MEQ/L Anion Gap 7 MEQ/L Estimat Glomerular Filtration Rate 61 ML/MIN Assessment and Plan Problem List: (1) NSTEMI (non-ST elevated myocardial infarction) ICD Codes: I21.4 - Non-ST elevation (NSTEMI) myocardial infarction Status: Acute (2) S/P CABG x 3 ICD Codes: Z95.1 - Presence of aortocoronary bypass graft (3) Chest pain ICD Codes: R07.9 - Chest pain, unspecified Status: Acute (4) CAD (coronary artery disease) ICD Codes: I25.10 - Atherosclerotic heart disease of [place] coronary artery without angina pectoris Status: Chronic (5) Hypertension ICD Codes: I10 - Essential (primary) hypertension Status: Chronic (6) Hyperlipidemia ICD Codes: E78.5 - Hyperlipidemia, unspecified Status: Chronic (7) New onset a-fib ICD Codes: I48.91 - Unspecified atrial fibrillation Status: Acute Assessment and Plan 1) CABG POD #3 WEI to LAD SVG to OM1 SVG to PDA 2) NSTEMI on presentation 3) ASA/Plavix/BB/Statin/Amio For heart rate control prefer Lopressor over Propranolol (previously on for his tremors) Hypertriglyceridemia, will start with Lipitor and diet, most likely will need further intervention 4) EF 40-45% pre-operatively 5) Blood pressure currently controlled 6) Afib with RVR overnight Will increase BB to TID Hold on starting Xarelto as he has ecchymosis from his IJ, will make sure stable before starting Discussed with CT surgery Venkata Mehta DO Mar 26, 2017 10:15
[2017-03-26] MEDS ORDERED: METOPROLOL TARTRATE 25 MG TAB PO ONE (14:15)
[2017-03-26] MEDS ORDERED: POTASSIUM CHLORIDE 10 MEQ CONTROLLED RELEASE TAB PO ONE (14:15)
[2017-03-26] MEDS ORDERED: FUROSEMIDE 20 MG/2 ML VIAL IV PUSH ONE (14:15)
--- NOTE | 2017-03-26 14:20 | PD.CAR.PN ---
CVT Progress Note Subjective/Hospital Course: 81/ male / presented to ED with chest pain , found to have an elevated trop and Afib RVR, started on cardizem. Underwent cardiac cath by Dr Mehta , found to have 20% L Main, 100% mid/distal LAD, daig 80%, CX 80% OM 70% RCA 100%. We were consulted to eval for CABG. ECHO: EF 40-45% global hypokinesis LVSF moderate reduced PMH: CAD/ prior OK/ PCI/ stents x 3 , Afib , HTN, HLP essential tremors Pt for surgery today 03/23 surgery: 1. Urgent Off-pump Coronary Artery Bypass Grafting x 3 with Left Internal Mammary Artery (WEI) to Left Anterior Descending (LAD), reverse saphenous vein graft to the Obtuse Marginal 1 branch of the Circumflex artery, reverse saphenous vein graft to the Posterior Descending (RPDA) branch of the Right Coronary Artery (RCA), Left Leg Endoscopic Vein [place], . 03/24 up in chair, doing well on nasal cannula wants to have triglycerides rechecked >[address] Mehta will transfer to stepdown will need PT continue pulm toileting 03/26 right IJ CVC line dc yesterday / now has small hematoma, no bleeding up 4 kg/ consider low dose diuretic continue PT/OT will need rehab went back into Afib , rate 90-110, additional BB given, dose increased consider xarelto prior to dc Objective: GENERAL: SKIN: Warm and dry. prevena to chest , incision intact to left leg HEAD: Normocephalic. EYES: No scleral icterus. No injection or drainage. NECK: Supple, trachea midline. No JVD or lymphadenopathy. CARDIOVASCULAR: irregular rate and rhythm without murmurs, gallops, or rubs. mild edema RESPIRATORY: Breath sounds equal bilaterally. No accessory muscle use. diminished in bases GASTROINTESTINAL: Abdomen soft, non-tender, nondistended. MUSCULOSKELETAL: No cyanosis, or edema. BACK: Nontender without obvious deformity. No CVA tenderness. Vital Signs Date Time Temp Pulse Resp B/P (MAP) Pulse Ox O2 Delivery O2 Flow Rate FiO2 03/26/17 13:08 100 03/26/17 12:00 101 03/26/17 11:30 97.6 84 18 118/71 (87) 95 03/26/17 11:30 95 Room Air 03/26/17 11:02 91 03/26/17 10:00 106 03/26/17 09:00 81 03/26/17 08:07 93 Room Air 03/26/17 08:07 81 03/26/17 08:04 97.8 90 18 113/70 (84) 93 03/26/17 07:56 94 21 03/26/17 07:01 106 03/26/17 06:36 105 03/26/17 05:10 96 03/26/17 04:22 93 03/26/17 03:17 98.6 75 18 145/75 (98) 91 03/26/17 03:17 91 Room Air 03/26/17 03:00 76 03/26/17 02:17 77 03/26/17 01:00 73 03/26/17 00:00 78 03/25/17 23:00 72 03/25/17 23:00 92 Room Air 03/25/17 23:00 98.6 75 20 125/69 (87) 92 03/25/17 22:00 74 03/25/17 21:11 95 03/25/17 21:00 90 03/25/17 20:00 88 03/25/17 20:00 98.5 91 22 174/90 (118) 93 03/25/17 20:00 93 Room Air 03/25/17 19:00 87 03/25/17 18:11 86 03/25/17 17:00 87 03/25/17 16:12 81 03/25/17 15:56 18 03/25/17 15:03 80 03/25/17 15:03 97 Room Air 03/25/17 15:03 98.0 83 18 124/71 (88) 94 03/25/17 14:19 85 Labs: Laboratory Tests Test 03/26/17 04:00 Blood Urea Nitrogen 16 MG/DL (7-18) Creatinine 1.15 MG/DL (0.60-1.30) Random Glucose 139 MG/DL (74-106) Calcium Level 8.0 MG/DL (8.5-10.1) Sodium Level 132 MEQ/L (136-145) Potassium Level 4.1 MEQ/L (3.5-5.1) Chloride Level 96 MEQ/L (98-107) Carbon Dioxide Level 28.6 MEQ/L (21.0-32.0) Anion Gap 7 MEQ/L (5-15) Estimat Glomerular Filtration Rate 61 ML/MIN (>89) Result Diagram: 03/25/1743903/26/17399 (1) NSTEMI (non-ST elevated myocardial infarction) (2) S/P CABG x 3 Plan: ASA, statin , BB, plavix, amiodarone gentle diuresis pulm toileting 40% EF OOB, ambulate (3) Chest pain (4) CAD (coronary artery disease) (5) Hypertension Plan: stable (6) Hyperlipidemia Plan: on statin , may need feno-fibrate / dietary consult (7) New onset a-fib Plan: back in afib / on BB, amiodarone / start xarelto prior to dc re-eval hematoma right IJ site Kerri Lewis Mar 26, 2017 14:20
[2017-03-26] MEDS: SENNOSIDES 8.6 MG TAB PO SCH (20:43)
[2017-03-26] MEDS: ATORVASTATIN 80 MG TAB PO SCH (20:44)
[2017-03-27] VITALS (18 sets, daily range): BP systolic 134–142; BP diastolic 74–79; PULSE 78–104; RESP 16–17; TEMP 97.7–98.1; O2SAT 93–95
[2017-03-27] MEDS: ACETAMINOPHEN/HYDROcodone 325 MG/5 MG TAB PO PRN ×4 (00:30→16:33)
[2017-03-27] MEDS: diphenhydrAMINE HCL 25 MG CAP PO PRN (03:10)
[2017-03-27] MEDS: PANTOPRAZOLE SOD 40 MG DELAYED RELEASE TAB PO SCH (05:29)
--- NOTE | 2017-03-27 06:00 | RADRPT ---
EXAM DATE/TIME: 03/27/2017 04:46 [facility] COMPARISON: CHEST SINGLE AP, March 26, 2017, 4:29. INDICATIONS : Evaluate for pnuemothorax, chest tube removal MEDICAL HISTORY : Hypercholesterolemia. Hypertension Myocardial infarction. CAD SURGICAL HISTORY : None. ENCOUNTER: Subsequent ACUITY: 3 days PAIN SCORE: 7/10 LOCATION: Bilateral chest FINDINGS: A single view of the chest demonstrates the lungs to be symmetrically aerated without evidence of mas s, infiltrate or effusion. Numerous intact sternal wires. Central line has been removed. The cardiome diastinal contours persistent mild cardiomegaly. Osseous structures are intact with old left clavicu lar fracture. CONCLUSION: Lungs are grossly clear. Heart still slightly enlarged status post median sternotomy. Some pleural re action remains in the left midlung zone but I dont see any residual pneumothorax. Angel Ortiz MD on March 27, 2017 at 5:57 Board Certified Radiologist. This report was verified electronically.
[2017-03-27] MEDS: INSULIN ASPART SUPPLEMENTAL SCALE SQ SCH ×2 (06:04→11:00)
[2017-03-27] MEDS: SODIUM CHLORIDE 0.9% FLUSH 10 ML FLUSH IV FLUSH SCH (08:44)
[2017-03-27] MEDS: CLOPIDOGREL 75 MG TAB PO SCH (08:44)
[2017-03-27] MEDS: MULTIVITAMINS/MINERALS THERAPEUTIC TAB PO SCH (08:45)
[2017-03-27] MEDS: ASPIRIN 81 MG CHEW TAB PO SCH (08:45)
[2017-03-27] MEDS: AMIODARONE 200 MG TAB PO SCH (08:45)
[2017-03-27] MEDS: DOCUSATE SODIUM 100 MG CAP PO SCH (08:45)
[2017-03-27] MEDS: METOPROLOL TARTRATE 25 MG TAB PO SCH (08:45)
[2017-03-27] MEDS: POLYETHYLENE GLYCOL 17 GM PKG PO SCH (08:46)
[2017-03-27] MEDS: MAGNESIUM HYDROXIDE SUSP 30 ML CUP PO SCH (08:46)
[2017-03-27] MEDS ORDERED: DOCU1CAP39 PO (13:44)
[2017-03-27] MEDS ORDERED: XARE20TA PO (13:44)
[2017-03-27] MEDS ORDERED: POLY17S PO (13:44)
[2017-03-27] MEDS ORDERED: ATOR1TAB18 PO (13:44)
[2017-03-27] MEDS ORDERED: HYDR-3516 PO (13:44)
[2017-03-27] MEDS ORDERED: PLAV75TA29 PO (13:44)
[2017-03-27] MEDS ORDERED: THERM PO (13:44)
[2017-03-27] MEDS ORDERED: METO25TA3 PO (13:44)
[2017-03-27] MEDS ORDERED: ASPI81CH25 PO (13:44)
[2017-03-27] MEDS ORDERED: AMIO200T PO (13:44)
--- NOTE | 2017-03-27 14:02 | HHI.DS ---
Discharge Summary Admission Date Mar 19, 2017 at 14:19 Admitting Diagnosis new-onset A. fib with RVR, elevated troponin (1) New onset a-fib ICD Codes: I48.91 - Unspecified atrial fibrillation Status: Acute (2) NSTEMI (non-ST elevated myocardial infarction) ICD Codes: I21.4 - Non-ST elevation (NSTEMI) myocardial infarction Status: Acute (3) CAD (coronary artery disease) ICD Codes: I25.10 - Atherosclerotic heart disease of [place] coronary artery without angina pectoris Status: Chronic (4) Chest pain ICD Codes: R07.9 - Chest pain, unspecified Status: Acute (5) Elevated troponin ICD Codes: R74.8 - Abnormal levels of other serum enzymes Status: Acute (6) Hypertension ICD Codes: I10 - Essential (primary) hypertension Status: Chronic (7) Hyperlipidemia ICD Codes: E78.5 - Hyperlipidemia, unspecified Status: Chronic (8) S/P CABG x 3 ICD Codes: Z95.1 - Presence of aortocoronary bypass graft Status: Acute Procedures 1. Urgent Off-pump Coronary Artery Bypass Grafting x 3 with Left Internal Mammary Artery (WEI) to Left Anterior Descending (LAD), reverse saphenous vein graft to the Obtuse Marginal 1 branch of the Circumflex artery, reverse saphenous vein graft to the Posterior Descending (RPDA) branch of the Right Coronary Artery (RCA) 2. Left Leg Endoscopic Vein [place] 3. Intraoperative Vein Mapping. 03/23/17 Brief History 81/ male / presented to ED with chest pain , found to have an elevated trop and Afib RVR, started on cardizem. Underwent cardiac cath by Dr Mehta , found to have 20% L Main, 100% mid/distal LAD, daig 80%, CX 80% OM 70% RCA 100%. We were consulted to eval for CABG. ECHO: EF 40-45% global hypokinesis LVSF moderate reduced PMH: CAD/ prior [place]/ PCI/ stents x 3 , Afib , HTN, HLP essential tremors CBC/BMP: 03/25/17 0440 03/26/17 0400 Significant Findings Laboratory Tests Test 03/25/17 04:40 03/26/17 04:00 White Blood Count 17.8 TH/MM3 (4.0-11.0) Red Blood Count 3.92 MIL/MM3 (4.50-5.90) Hemoglobin 11.1 GM/DL (13.0-17.0) Hematocrit 33.3 % (39.0-51.0) Neutrophils (%) (Auto) 78.3 % (16.0-70.0) Monocytes (%) (Auto) 10.1 % (0.0-8.0) Neutrophils # (Auto) 13.9 TH/MM3 (1.8-7.7) Monocytes # (Auto) 1.8 TH/MM3 (0-0.9) Random Glucose 141 MG/DL (74-106) 139 MG/DL (74-106) Calcium Level 7.9 MG/DL (8.5-10.1) 8.0 MG/DL (8.5-10.1) Sodium Level 131 MEQ/L (136-145) 132 MEQ/L (136-145) Chloride Level 96 MEQ/L (98-107) 96 MEQ/L (98-107) Estimat Glomerular Filtration Rate 58 ML/MIN (>89) 61 ML/MIN (>89) Imaging Last Impressions Chest X-Ray 03/27/17 0600 Signed Impressions: Service Date/Time: Monday, March 27, 2017 04:46 - CONCLUSION: Lungs are grossly clear. Heart still slightly enlarged status post median sternotomy. Some pleural reaction remains in the left midlung zone but I dont see any residual pneumothorax. Angel Ortiz MD Lower Extremity Ultrasound 03/20/17 0000 Signed Impressions: Service Date/Time: Monday, March 20, 2017 17:24 - CONCLUSION: Venous mapping of the lower extremities as above. Pablito Praker MD PE at Discharge GENERAL: SKIN: Warm and dry. prevena dressing to chest , incision intact left leg, some ecchymosis around incision , no erythema HEAD: Normocephalic. EYES: No scleral icterus. No injection or drainage. NECK: Supple, trachea midline. No JVD or lymphadenopathy. CARDIOVASCULAR: Regular rate and rhythm without murmurs, gallops, or rubs. RESPIRATORY: Breath sounds equal bilaterally. No accessory muscle use. diminished in bases GASTROINTESTINAL: Abdomen soft, non-tender, nondistended. MUSCULOSKELETAL: No cyanosis, or edema. BACK: Nontender without obvious deformity. No CVA tenderness. Hospital Course Pt for surgery today 03/23 surgery: 1. Urgent Off-pump Coronary Artery Bypass Grafting x 3 with Left Internal Mammary Artery (WEI) to Left Anterior Descending (LAD), reverse saphenous vein graft to the Obtuse Marginal 1 branch of the Circumflex artery, reverse saphenous vein graft to the Posterior Descending (RPDA) branch of the Right Coronary Artery (RCA), Left Leg Endoscopic Vein [place], . 03/24 up in chair, doing well on nasal cannula wants to have triglycerides rechecked >[address] Mehta will transfer to stepdown will need PT continue pulm toileting 03/26 right IJ CVC line dc yesterday / now has small hematoma, no bleeding up 4 kg/ consider low dose diuretic continue PT/OT will need rehab went back into Afib , rate 90-110, additional BB given, dose increased consider xarelto prior to dc 03/27 doing well, stable for discharge to SNF, start xarelto today on BB , on room air remains in afib, rate controlled Discharge Disposition: Discharge to SNF Discharge Instructions DIET: Follow Instructions for: Heart Healthy Diet Activities you can perform: Full Weight Bearing, Shower Only-No Bath Activities to avoid: Driving Additional Activity Instructio: no lifting > 8 lbs or gallons of milk Follow up Referrals: Appointment for Follow Up Appointment for Follow Up Appointment for Follow Up New Medications: Rivaroxaban (Xarelto) 20 Mg Tab 20 MG PO DAILY for Blood Clot Prevention, #30 TAB 2 Refills Amiodarone (Amiodarone) 200 Mg Tab 200 MG PO DAILY for antiarrythmia med for 7 Days, #7 TAB 0 Refills Aspirin (Aspirin Low Strength) 81 Mg Chew 81 MG PO DAILY for Blood Clot Prevention, #30 EA 2 Refills Atorvastatin (Atorvastatin) 80 Mg Tab 80 MG PO HS for Cholesterol Management, #30 TAB 2 Refills Docusate Sodium (Dok) 100 Mg Cap 100 MG PO BID for Constipation, #60 CAP 0 Refills Hydrocodone-Acetaminophen (Hydrocodone-Acetaminophen) 5-325 mg Tab 1 TAB PO Q6HR PRN for PAIN SCALE 1 TO 5, #40 TAB 0 Refills Metoprolol Tartrate (Metoprolol Tartrate) 25 Mg Tab 50 MG PO Q12HR for Blood Pressure Management, #60 TAB 2 Refills hold SBP<100 HR<60 Multiple Vitamins W/ Minerals (Thera M Plus) 1 Tab 1 TAB PO DAILY for multivitami, #30 TAB 2 Refills Polyethylene Glycol 3350 Powder (Polyethylene Glycol 3350 Powder) 17 Gm Pow 17 GM PO DAILY for Constipation, #30 PACKET 0 Refills Continued Medications: Pantoprazole (Pantoprazole) 40 Mg Tab 40 MG PO DAILY for Reflux, #30 TAB 0 Refills Discontinued Medications: Propranolol (Propranolol) 40 Mg Tab 40 MG PO Q12HR, #60 TAB 0 Refills Kerri Lewis Mar 27, 2017 14:02
[2017-03-27] MEDS ORDERED: RIVAROXABAN 20 MG TAB PO SCH (16:00)
--- NOTE | 2017-03-27 19:19 | PD.CARD.PN ---
Subjective Subjective Remarks Patient seen this morning No complaints, doing well Heart rates better controlled overnight Objective Medications Current Medications Diltiazem HCl (Cardizem Inj) 20 mg ONCE ONCE IV Last administered on 12:25; Start 03/19/17 at 12:15; Stop 03/19/17 at 12:16; Status DC Diltiazem HCl 125 mg/Sodium Chloride 125 ml @ 0 mls/hr TITRATE IV Last administered on 03/19/17 17:30; Start 03/19/17 at 12:15; Stop 03/19/17 at 18:16 ; Status DC Aspirin (Aspirin Chew) 162 mg ONCE ONCE PO Last administered on 03/19/17 12: 25; Start 03/19/17 at 12:15; Stop 03/19/17 at 12:16; Status DC Aspirin (Aspirin Chew) 162 mg ONCE ONCE PO Last administered on 03/19/17 14: 15; Start 03/19/17 at 13:45; Stop 03/19/17 at 13:46; Status DC Heparin Sodium (Porcine) (Heparin Inj) 5,000 units UNSCH PRN IV APTT LESS THAN 25; Start 03/19/17 at 20:00; Stop 03/24/17 at 09:08; Status DC Heparin Sodium (Porcine) (Heparin Inj) 2,500 units UNSCH PRN IV APTT 25 TO 39 Last administered on 03/21/17 22:22; Start 03/19/17 at 20:00; Stop 03/24/17 at 09:08; Status DC Heparin Sodium/ Dextrose 250 ml @ 0 mls/hr TITRATE IV Last administered on 03/22 15:20; Start 03/19/17 at 14:00; Stop 03/24/17 at 09:08; Status DC Sodium Chloride (NS Flush) 2 ml UNSCH PRN IV FLUSH FLUSH AFTER USING IV ACCESS ; Start 03/19/17 at 14:30; Stop 03/20/17 at 16:26; Status DC Sodium Chloride (NS Flush) 2 ml BID IV FLUSH Last administered on 03/19/17 20: 57; Start 03/19/17 at 21:00; Stop 03/20/17 at 16:26; Status DC Acetaminophen (Tylenol) 650 mg Q4H PRN PO Headache, fever, pain 1-10 Last administered on 03/22/17 15:24; Start 03/19/17 at 14:30; Stop 03/23/17 at 14:28 ; Status DC Ondansetron HCl (Zofran Inj) 4 mg Q6H PRN IVP NAUSEA OR VOMITING; Start at 14:30; Stop 03/23/17 at 14:28; Status DC Naloxone HCl (Narcan Inj) 0.4 mg UNSCH PRN IV SEE LABEL COMMENTS; Start at 14:30; Stop 03/24/17 at 09:08; Status DC Senna/Docusate Sodium (Brenda-Colace) 1 tab BID PO Last administered on 08:59; Start 03/19/17 at 21:00; Stop 03/24/17 at 09:17; Status DC Magnesium Hydroxide (Milk Of Magnesia Liq) 30 ml Q12H PRN PO MILD - MODERATE CONSTIPATION; Start 03/19/17 at 14:30; Stop 03/24/17 at 09:08; Status DC Sennosides (Senokot) 17.2 mg Q12H PRN PO MODERATE - SEVERE CONSTIPATION; Start 03/19/17 at 14:30; Stop 03/24/17 at 09:08; Status DC Bisacodyl (Dulcolax Supp) 10 mg DAILY PRN RECTAL SEVERE CONSITIPATION; Start at 14:30; Stop 03/27/17 at 17:03; Status DC Lactulose (Lactulose Liq) 30 ml DAILY PRN PO SEVERE CONSITIPATION; Start at 14:30; Stop 03/27/17 at 17:03; Status DC Atorvastatin Calcium (Lipitor) 80 mg ONCE ONCE PO Last administered on 15:30; Start 03/19/17 at 14:30; Stop 03/19/17 at 14:35; Status DC Heparin Sodium (Porcine) (Heparin Inj) 10,000 units STK-MED ONCE .ROUTE ; Start 03/19/17 at 15:00; Stop 03/19/17 at 15:01; Status DC Pantoprazole Sodium (Protonix) 40 mg DAILY PO Last administered on 03/24/17 08 :59; Start 03/20/17 at 09:00; Stop 03/24/17 at 09:08; Status DC Morphine Sulfate (Morphine Inj) 2 mg Q3H PRN IV PUSH chest pain/breakthrough pain; Start 03/19/17 at 15:30; Stop 03/24/17 at 09:08; Status DC Metoprolol Tartrate (Lopressor) 25 mg Q8HR PO Last administered on 03/19/17 22 :01; Start 03/19/17 at 22:00; Stop 03/19/17 at 22:56; Status DC Metoprolol Tartrate (Lopressor) 25 mg ONCE ONCE PO ; Start 03/19/17 at 18:15; Stop 03/19/17 at 18:30; Status DC Metoprolol Tartrate (Lopressor) 25 mg BID PO Last administered on 03/25/17 08: 13; Start 03/20/17 at 09:00; Stop 03/25/17 at 08:53; Status DC Aspirin (Aspirin Chew) 81 mg DAILY CHEW Last administered on 03/22/17 09:00; Start 03/20/17 at 09:00; Stop 03/23/17 at 14:27; Status DC Heparin Sodium/ Sodium Chloride 500 ml @ As Directed STK-MED ONCE .ROUTE ; Start 03/20/17 at 10:50; Stop 03/20/17 at 10:51; Status DC Midazolam HCl (Versed Inj) 2 mg STK-MED ONCE .ROUTE Last administered on 11:11; Start 03/20/17 at 10:58; Stop 03/20/17 at 10:59; Status DC Fentanyl Citrate (fentaNYL INJ) 100 mcg STK-MED ONCE .ROUTE Last administered on 03/20/17 11:12; Start 03/20/17 at 10:58; Stop 03/20/17 at 10:59; Status DC Verapamil HCl (Isoptin Inj) 5 mg STK-MED ONCE .ROUTE Last administered on 11:19; Start 03/20/17 at 10:59; Stop 03/20/17 at 11:00; Status DC Heparin Sodium (Porcine) (Heparin Inj) 10,000 units STK-MED ONCE .ROUTE Last administered on 03/20/17 11:19; Start 03/20/17 at 10:59; Stop 03/20/17 at 11:00 ; Status DC Nitroglycerin 5 ml @ As Directed STK-MED ONCE .ROUTE Last administered on 11:19; Start 03/20/17 at 10:59; Stop 03/20/17 at 11:00; Status DC Iohexol (OMNIPAQUE 350 INJ (Shop Tech)) 50 ml STK-MED ONCE OTHER ; Start at 12:13; Stop 03/20/17 at 12:14; Status DC Methylprednisolone Sodium Succinate (SoluMEDROL INJ) 125 mg STK-MED ONCE .ROUTE ; Start 03/20/17 at 12:59; Stop 03/20/17 at 13:00; Status DC Sodium Chloride (NS Flush) 2 ml BID IV FLUSH Last administered on 03/24/17 08: 59; Start 03/20/17 at 21:00; Stop 03/24/17 at 09:08; Status DC Sodium Chloride (NS Flush) 2 ml UNSCH PRN IV FLUSH FLUSH AFTER USING IV ACCESS ; Start 03/20/17 at 14:15; Stop 03/24/17 at 09:08; Status DC Papaverine HCl 60 mg/Nitroglycerin 100 mcg/Diltiazem HCl 100 mg/Sodium Chloride 100.0 ml @ 0 mls/hr [employer] IRRIGATION Last administered on 03/23/17 10:27; Start 03/20/17 at 14:15; Stop 03/24/17 at 09:08; Status DC Cefazolin Sodium 500 mg/Sodium Chloride 505 ml @ 0 mls/hr [place] IRRIGATION Last administered on 03/23/17 12:51; Start 03/20/17 at 14:15; Stop 03/24/17 at 09:08; Status DC Cefazolin Sodium/ Dextrose 50 ml @ 150 mls/hr [place] IV Last administered on 03/23/17 09:05; Start 03/20/17 at 14:15; Stop 03/24/17 at 09:08; Status DC Metoprolol Tartrate (Lopressor) 12.5 mg [place] PO ; Start 03/20/17 at 14:15; Stop 03/24/17 at 09:08; Status DC Chlorhexidine Gluconate (Hibiclens 4% Top Soln) 1 applic [employer] TOPICAL ; Start 03/20/17 at 14:15; Stop 03/24/17 at 09:08; Status DC Insulin Human Regular 100 units/ Sodium Chloride 101 ml @ 0 mls/hr [employer] IV Last administered on 03/23/17 14:11; Start 03/20/17 at 14:15; Stop 03/24/17 at 09:08; Status DC Atorvastatin Calcium (Lipitor) 80 mg HS PO Last administered on 03/26/17 20:44 ; Start 03/20/17 at 21:00; Stop 03/27/17 at 17:03; Status DC Diphenhydramine HCl (Benadryl) 25 mg ONCE ONCE PO Last administered on 23:57; Start 03/20/17 at 23:00; Stop 03/20/17 at 23:01; Status DC Clonidine (Catapres) 0.1 mg Q6H PRN PO SBP>160, DBP>90 Last administered on 23:23; Start 03/21/17 at 06:15; Stop 03/27/17 at 17:03; Status DC Diphenhydramine HCl (Benadryl) 25 mg HS PRN PO sleep Last administered on 03:10; Start 03/21/17 at 23:15; Stop 03/27/17 at 17:03; Status DC Tramadol HCl (Ultram) 50 mg Q8H PRN PO BREAKTHROUGH PAIN Last administered on 20:23; Start 03/22/17 at 07:15; Stop 03/27/17 at 17:03; Status DC Lactated Ringer's 1,000 ml @ 30 mls/hr Q24H PRN IV SEE LABEL COMMENTS; Start at 04:15; Stop 03/24/17 at 09:08; Status DC Sodium Chloride 500 ml @ 30 mls/hr [id number] PRN IV SEE LABEL COMMENTS Last administered on 03/23/17 14:13; Start 03/23/17 at 04:15; Stop 03/24/17 at 09:08 ; Status DC Povidone Iodine (Betadine 5% Antisepsis Kit) 1 applic [place] PRN EACH NARE SEE LABEL COMMENTS; Start 03/23/17 at 04:15; Stop 03/24/17 at 09:08; Status DC Chlorhexidine Gluconate (Chlorhexidine 2% Cloth) 3 pack [place] PRN TOPICAL SEE LABEL COMMENTS; Start 03/23/17 at 04:15; Stop 03/24/17 at 09:08; Status DC Insulin Human Regular (NovoLIN R INJ) See Protocol Table ... [place] PRN SQ SEE PROTOCOL TABLE; Start 03/23/17 at 04:15; Stop 03/24/17 at 09:18; Status DC Vancomycin HCl (Vancomycin Inj) 3,000 mg STK-MED ONCE .ROUTE ; Start 03/23/17 at 07:25; Stop 03/23/17 at 07:26; Status DC Heparin Sodium (Porcine) (Heparin Inj) 40,000 units STK-MED ONCE .ROUTE Last administered on 03/23/17 09:13; Start 03/23/17 at 07:26; Stop 03/23/17 at 07:27 ; Status DC Potassium Chloride (KCl Inj) 2 meq STK-MED ONCE .ROUTE ; Start 03/23/17 at 07:58 ; Stop 03/23/17 at 07:59; Status DC Cefazolin Sodium/ Dextrose 50 ml @ As Directed STK-MED ONCE .ROUTE ; Start 03/23 at 09:04; Stop 03/24/17 at 09:08; Status DC Cefazolin Sodium (Ancef Inj) 1,000 mg STK-MED ONCE .ROUTE Last administered on 03/23/17 12:45; Start 03/23/17 at 12:27; Stop 03/24/17 at 09:08; Status DC Sodium Chloride (NS Flush) 2 ml BID IV FLUSH Last administered on 03/27/17 08: 44; Start 03/23/17 at 21:00; Stop 03/27/17 at 17:03; Status DC Sodium Chloride (NS Flush) 2 ml UNSCH PRN IV FLUSH FLUSH AFTER USING IV ACCESS ; Start 03/23/17 at 13:15; Stop 03/27/17 at 17:03; Status DC Dexmedetomidine HCl 200 mcg/ Sodium Chloride 52 ml @ 6.66 mls/hr TITRATE PRN IV SEDATION; Start 03/23/17 at 13:15; Stop 03/24/17 at 09:08; Status DC Nitroglycerin/ Dextrose 250 ml @ 1.5 mls/hr TITRATE PRN IV Maintain BP < 140/ 90 mmHg; Start 03/23/17 at 13:15; Stop 03/24/17 at 09:08; Status DC Dobutamine HCl/ Dextrose 250 ml @ 19.23 mls/ hr Q13H IV ; Start 03/23/17 at 13: 08; Stop 03/24/17 at 09:08; Status DC Dopamine HCl/ Dextrose 500 ml @ 14.423 mls/ hr TITRATE PRN IV Maintain MAP > 65 mmHg; Start 03/23/17 at 13:15; Stop 03/24/17 at 09:08; Status DC Phenylephrine HCl 40 mg/Dextrose 500 ml @ 30 mls/hr TITRATE PRN IV Maintain MAP > 65 mmHg; Start 03/23/17 at 13:15; Stop 03/24/17 at 09:08; Status DC Clevidipine 50 ml @ 2 mls/hr TITRATE PRN IV Maintain BP < 140/90 mmHg Last administered on 03/24/17 00:15; Start 03/23/17 at 13:15; Stop 03/24/17 at 09:08 ; Status DC Albumin Human (Albumin 5% Inj) 12.5 gm UNSCH PRN IV SEE LABEL COMMENTS; Start 03/23/17 at 13:15; Stop 03/24/17 at 09:08; Status DC Lactated Ringer's 500 ml @ 500 mls/hr Q1H PRN IV SEE LABEL COMMENTS; Start at 13:08; Stop 03/24/17 at 09:08; Status DC Miscellaneous Information (Post-op Orders (for Pharmacy)) STAT ONCE OTHER ; Start 03/23/17 at 14:00; Stop 03/24/17 at 09:08; Status DC Aspirin (Aspirin Chew) 81 mg DAILY PO Last administered on 03/27/17 08:45; Start 03/24/17 at 09:00; Stop 03/27/17 at 17:03; Status DC Clopidogrel Bisulfate (Plavix) 75 mg DAILY PO Last administered on 03/27/17 08 :44; Start 03/24/17 at 09:00; Stop 03/27/17 at 17:03; Status DC Pantoprazole Sodium (Protonix) 40 mg DAILY@06 PO Last administered on 05:29; Start 03/24/17 at 06:00; Stop 03/27/17 at 17:03; Status DC Amiodarone HCl (Cordarone) 200 mg Q12HR PO Last administered on 03/27/17 08:45 ; Start 03/23/17 at 21:00; Stop 03/27/17 at 17:03; Status DC Acetaminophen (Tylenol) 650 mg Q4H PRN PO TEMPERATURE > 101 F; Start 03/23/17 at 13:15; Stop 03/27/17 at 17:03; Status DC Acetaminophen (Tylenol Supp) 650 mg Q4H PRN RECTAL TEMPERATURE > 101 F; Start 03/23/17 at 13:15; Stop 03/24/17 at 09:08; Status DC Acetaminophen (Ofirmev Inj) 1,000 mg Q6H IV Last administered on 03/24/17 08: 58; Start 03/23/17 at 15:00; Stop 03/24/17 at 09:01; Status DC Morphine Sulfate (Morphine Inj) 1 mg Q10M PRN IV PAIN SCALE 1 TO 5; Start 03/23 at 13:15; Stop 03/24/17 at 09:08; Status DC Meperidine HCl (Demerol Inj) 12.5 mg Q4H PRN IV SEE LABEL COMMENTS; Start 03/23 at 13:15; Stop 03/24/17 at 09:08; Status DC Acetaminophen/ Hydrocodone Bitart ([place] 5-325 Mg) 1 tab Q3H PRN PO PAIN SCALE 1 TO 5 Last administered on 03/24/17 18:41; Start 03/23/17 at 13:15; Stop 03/24/17 at 21:57; Status DC Fentanyl Citrate (fentaNYL INJ) 25 mcg Q1H PRN IV BREAKTHROUGH PAIN Last administered on 03/24/17 03:16; Start 03/23/17 at 13:15; Stop 03/24/17 at 09:08 ; Status DC Ondansetron HCl (Zofran Inj) 4 mg Q6H PRN IV PUSH NAUSEA OR VOMITING; Start at 13:15; Stop 03/27/17 at 17:03; Status DC Hydralazine HCl (Apresoline Inj) 10 mg Q4H PRN IV SEE LABEL COMMENTS; Start at 13:15; Stop 03/27/17 at 17:03; Status DC Metoprolol Tartrate (Lopressor Inj) 2.5 mg Q1H PRN IV PUSH SEE LABEL COMMENTS Last administered on 03/24/17 00:05; Start 03/23/17 at 13:15; Stop 03/24/17 at 09:08; Status DC Potassium Chloride 100 ml @ 50 mls/hr UNSCH PRN IV SEE LABEL COMMENTS; Start 03/23/17 at 13:15; Stop 03/24/17 at 09:08; Status DC Potassium Chloride 100 ml @ 50 mls/hr UNSCH PRN IV SEE LABEL COMMENTS; Start 03/23/17 at 13:15; Stop 03/24/17 at 09:08; Status DC Potassium Chloride 100 ml @ 50 mls/hr UNSCH PRN IV SEE LABEL COMMENTS; Start 03/23/17 at 13:15; Stop 03/24/17 at 09:08; Status DC Potassium Chloride (KCl) 20 meq UNSCH PRN PO SEE LABEL COMMENTS; Start at 13:15; Stop 03/24/17 at 09:08; Status DC Potassium Chloride (KCl) 40 meq UNSCH PRN PO SEE LABEL COMMENTS; Start at 13:15; Stop 03/24/17 at 09:08; Status DC Magnesium Sulfate 2 gm/Sodium Chloride 104 ml @ 100 mls/hr UNSCH PRN IV SEE LABEL COMMENTS Last administered on 03/24/17 07:35; Start 03/23/17 at 13:15; Stop 03/24/17 at 09:08; Status DC Magnesium Sulfate 2 gm/Sodium Chloride 104 ml @ 50 mls/hr UNSCH PRN IV SEE LABEL COMMENTS; Start 03/23/17 at 13:15; Stop 03/24/17 at 09:08; Status DC Calcium Chloride 1 gm/Sodium Chloride 110 ml @ 100 mls/hr UNSCH PRN IV SEE LABEL COMMENTS; Start 03/23/17 at 13:15; Stop 03/24/17 at 09:08; Status DC Calcium Chloride (Calcium Chloride Inj) 0.5 gm UNSCH PRN IV SEE LABEL COMMENTS ; Start 03/23/17 at 13:15; Stop 03/24/17 at 09:08; Status DC Insulin Human Regular 100 units/ Sodium Chloride 100 ml @ 0 mls/hr TITRATE IV Last administered on 03/23/17 22:25; Start 03/23/17 at 13:15; Stop 03/24/17 at 09:08; Status DC Dextrose (D50w (Vial) Inj) 50 ml UNSCH PRN IV PUSH HYPOGLYCEMIA-SEE COMMENTS; Start 03/23/17 at 13:15; Stop 03/24/17 at 09:15; Status DC Cefazolin Sodium/ Dextrose 50 ml @ 100 mls/hr Q8H IV Last administered on 03/25 04:33; Start 03/23/17 at 21:00; Stop 03/25/17 at 05:29; Status DC Albuterol/ Ipratropium (Duoneb Neb) 1 ampule Q6HR NEB NEB Last administered on 03/24/17 03:22; Start 03/23/17 at 16:00; Stop 03/24/17 at 09:18; Status DC Albuterol/ Ipratropium (Duoneb Neb) 1 ampule Q2HR NEB PRN NEB WHEEZING Last administered on 03/26/17 06:28; Start 03/23/17 at 13:15; Stop 03/27/17 at 17:03 ; Status DC Racepinephrine (Racepinephrine 2.25% Neb) 0.5 ml UNSCH X1 PRN NEB STRIDOR; Start 03/23/17 at 13:15; Stop 03/24/17 at 09:08; Status DC Fentanyl Citrate (fentaNYL INJ) 1,000 mcg STK-MED ONCE .ROUTE ; Start 03/23/17 at 14:40; Stop 03/24/17 at 09:08; Status DC Fentanyl Citrate (fentaNYL INJ) 1,000 mcg STK-MED ONCE .ROUTE ; Start 03/23/17 at 14:41; Stop 03/24/17 at 09:08; Status DC Midazolam HCl (Versed Inj) 10 mg STK-MED ONCE .ROUTE ; Start 03/23/17 at 14:42; Stop 03/24/17 at 09:08; Status DC Albuterol/ Ipratropium (Duoneb Neb) 1 ampule Q6HR WHILE AWAKE NEB NEB Last administered on 03/26/17 12:01; Start 03/24/17 at 14:00; Stop 03/26/17 at 13:59 ; Status DC Docusate Sodium (Colace) 100 mg BID PO Last administered on 03/27/17 08:45; Start 03/24/17 at 09:15; Stop 03/27/17 at 17:03; Status DC Multivitamins/ Minerals Therapeutic (Theragran M Tab) 1 tab DAILY PO Last administered on 03/27/17 08:45; Start 03/25/17 at 09:00; Stop 03/27/17 at 17:03 ; Status DC Magnesium Hydroxide (Milk Of Magnesia Liq) 30 ml DAILY PO Last administered on 03/25/17 08:04; Start 03/25/17 at 09:00; Stop 03/27/17 at 17:03; Status DC Bisacodyl (Dulcolax Supp) 10 mg UNSCH PRN RECTAL SEE LABEL COMMENTS; Start at 09:15; Stop 03/25/17 at 09:14; Status DC Polyethylene Glycol (Miralax) 17 gm DAILY PO Last administered on 03/25/17 08: 04; Start 03/25/17 at 09:00; Stop 03/27/17 at 17:03; Status DC Sennosides (Senokot) 8.6 mg HS PO Last administered on 03/26/17 20:43; Start 03/24/17 at 21:00; Stop 03/27/17 at 17:03; Status DC Sodium Biphosphate/ Sodium Phosphate (Fleets Enema (Adult)) 133 ml UNSCH PRN RECTAL SEE LABEL COMMENTS; Start 03/24/17 at 09:15; Stop 03/27/17 at 17:03; Status DC Insulin Aspart (NovoLOG SUPPLEMENTAL SCALE) 1 02,06,10,14,18,22 SQ Last administered on 03/25/17 06:00; Start 03/24/17 at 10:00; Stop 03/25/17 at 11:25 ; Status DC Dextrose (D50w (Vial) Inj) 50 ml UNSCH PRN IV HYPOGLYCEMIA-SEE COMMENTS; Start 03/24/17 at 09:15; Stop 03/27/17 at 17:03; Status DC Glucagon (Glucagon Inj) 1 mg UNSCH PRN OTHER HYPOGLYCEMIA-SEE COMMENTS; Start 03/24/17 at 09:15; Stop 03/27/17 at 17:03; Status DC Acetaminophen/ Hydrocodone Bitart ([place] 5-325 Mg) 1 tab Q4H PRN PO PAIN SCALE 1 TO 5 Last administered on 03/26/17 14:52; Start 03/24/17 at 22:00; Stop 03/27/17 at 17:03; Status DC Acetaminophen/ Hydrocodone Bitart ([place] 5-325 Mg) 2 tab Q4H PRN PO PAIN SCALE 6-10 Last administered on 03/27/17 16:33; Start 03/24/17 at 22:00; Stop 03/27/17 at 17:03; Status DC Metoprolol Tartrate (Lopressor) 25 mg Q12HR PO Last administered on 03/27/17 08:45; Start 03/25/17 at 09:00; Stop 03/27/17 at 17:03; Status DC Furosemide (Lasix Inj) 20 mg ONCE ONCE IV PUSH Last administered on 03/25/17 12:10; Start 03/25/17 at 11:30; Stop 03/25/17 at 11:31; Status DC Potassium Chloride (KCl) 10 meq ONCE ONCE PO Last administered on 03/25/17 12 :10; Start 03/25/17 at 11:30; Stop 03/25/17 at 11:31; Status DC Insulin Aspart (NovoLOG SUPPLEMENTAL SCALE) 1 ACHS SQ Last administered on 03/27 11:00; Start 03/25/17 at 11:00; Stop 03/27/17 at 17:03; Status DC Metoprolol Tartrate (Lopressor) 12.5 mg ONCE ONCE PO Last administered on 03/26 14:52; Start 03/26/17 at 14:15; Stop 03/26/17 at 14:16; Status DC Furosemide (Lasix Inj) 20 mg ONCE ONCE IV PUSH Last administered on 03/26/17 14:52; Start 03/26/17 at 14:15; Stop 03/26/17 at 14:42; Status DC Potassium Chloride (KCl) 10 meq ONCE ONCE PO Last administered on 03/26/17 14 :52; Start 03/26/17 at 14:15; Stop 03/26/17 at 14:45; Status DC Rivaroxaban (Xarelto) 20 mg DAILY PO Last administered on 03/27/17 15:18; Start 03/27/17 at 16:00; Stop 03/27/17 at 17:03; Status DC Vital Signs / I&O Vital Signs Date Time Temp Pulse Resp B/P (MAP) Pulse Ox O2 Delivery O2 Flow Rate FiO2 03/27/17 14:00 90 03/27/17 13:00 93 03/27/17 12:00 88 03/27/17 11:54 Room Air 03/27/17 11:00 97.7 85 16 134/74 (94) 95 03/27/17 11:00 90 03/27/17 10:00 82 03/27/17 09:00 92 03/27/17 08:54 94 03/27/17 08:00 86 03/27/17 07:30 93 Room Air 03/27/17 07:30 98.1 86 17 142/79 (100) 93 03/27/17 07:00 84 03/27/17 06:00 87 03/27/17 05:32 83 03/27/17 04:00 80 03/27/17 03:29 97.9 78 140/77 (98) 95 03/27/17 03:29 Room Air 03/27/17 03:00 93 03/27/17 02:00 86 03/27/17 01:00 104 03/27/17 00:00 88 03/26/17 23:20 97.8 98 137/71 (93) 92 03/26/17 23:20 Room Air 03/26/17 23:00 110 03/26/17 22:00 80 03/26/17 21:08 94 21 03/26/17 21:06 97.5 87 134/70 (91) 96 03/26/17 21:06 Room Air 03/26/17 21:00 114 03/26/17 20:00 106 I/O 03/26/17 03/26/17 03/26/17 03/27/17 03/27/17 03/27/17 06:59 14:59 22:59 06:59 14:59 22:59 Intake Total 680 ml 1080 ml 720 ml Output Total 1425 ml 1400 ml 800 ml Balance -745 ml -320 ml -80 ml Intake Oral 680 ml 1080 ml 720 ml Output Urine Total 1425 ml 1400 ml 800 ml # Voids 2 4 # Bowel Movements 1 0 1 Physical Exam GENERAL: NAD SKIN: Warm and dry. HEAD: Atraumatic. Normocephalic. EYES: Pupils equal and round. No scleral icterus. No injection or drainage. ENT: No nasal bleeding or discharge. Mucous membranes pink and moist. NECK: Trachea midline. No JVD. CARDIOVASCULAR: Irregularly irregular. Sternotomy with wound vac RESPIRATORY: No accessory muscle use. Decreased breath sounds bilaterally GASTROINTESTINAL: Abdomen soft, non-tender, nondistended. Hepatic and splenic margins not palpable. MUSCULOSKELETAL: Extremities without clubbing, cyanosis, or edema. No obvious deformities. NEUROLOGICAL: Awake and alert. No obvious cranial nerve deficits. Motor grossly within normal limits. Five out of 5 muscle strength in the arms and legs. Normal speech. PSYCHIATRIC: Appropriate mood and affect; insight and judgment normal. Laboratory Laboratory Tests Test 03/25/17 04:40 03/26/17 04:00 White Blood Count 17.8 TH/MM3 (4.0-11.0) Red Blood Count 3.92 MIL/MM3 (4.50-5.90) Hemoglobin 11.1 GM/DL (13.0-17.0) Hematocrit 33.3 % (39.0-51.0) Mean Corpuscular Volume 85.1 FL (80.0-100.0) Mean Corpuscular Hemoglobin 28.3 PG (27.0-34.0) Mean Corpuscular Hemoglobin Concent 33.3 % (32.0-36.0) Red Cell Distribution Width 14.0 % (11.6-17.2) Platelet Count 179 TH/MM3 (150-450) Mean Platelet Volume 8.1 FL (7.0-11.0) Neutrophils (%) (Auto) 78.3 % (16.0-70.0) Lymphocytes (%) (Auto) 11.2 % (9.0-44.0) Monocytes (%) (Auto) 10.1 % (0.0-8.0) Eosinophils (%) (Auto) 0.2 % (0.0-4.0) Basophils (%) (Auto) 0.2 % (0.0-2.0) Neutrophils # (Auto) 13.9 TH/MM3 (1.8-7.7) Lymphocytes # (Auto) 2.0 TH/MM3 (1.0-4.8) Monocytes # (Auto) 1.8 TH/MM3 (0-0.9) Eosinophils # (Auto) 0.0 TH/MM3 (0-0.4) Basophils # (Auto) 0.0 TH/MM3 (0-0.2) CBC Comment DIFF FINAL Differential Comment Blood Urea Nitrogen 15 MG/DL (7-18) 16 MG/DL (7-18) Creatinine 1.21 MG/DL (0.60-1.30) 1.15 MG/DL (0.60-1.30) Random Glucose 141 MG/DL (74-106) 139 MG/DL (74-106) Calcium Level 7.9 MG/DL (8.5-10.1) 8.0 MG/DL (8.5-10.1) Magnesium Level 2.2 MG/DL (1.5-2.5) Sodium Level 131 MEQ/L (136-145) 132 MEQ/L (136-145) Potassium Level 4.3 MEQ/L (3.5-5.1) 4.1 MEQ/L (3.5-5.1) Chloride Level 96 MEQ/L (98-107) 96 MEQ/L (98-107) Carbon Dioxide Level 25.3 MEQ/L (21.0-32.0) 28.6 MEQ/L (21.0-32.0) Anion Gap 10 MEQ/L (5-15) 7 MEQ/L (5-15) Estimat Glomerular Filtration Rate 58 ML/MIN (>89) 61 ML/MIN (>89) Assessment and Plan Problem List: (1) NSTEMI (non-ST elevated myocardial infarction) ICD Codes: I21.4 - Non-ST elevation (NSTEMI) myocardial infarction Status: Acute (2) S/P CABG x 3 ICD Codes: Z95.1 - Presence of aortocoronary bypass graft Status: Acute (3) Chest pain ICD Codes: R07.9 - Chest pain, unspecified Status: Acute (4) CAD (coronary artery disease) ICD Codes: I25.10 - Atherosclerotic heart disease of [place] coronary artery without angina pectoris Status: Chronic (5) Hypertension ICD Codes: I10 - Essential (primary) hypertension Status: Chronic (6) Hyperlipidemia ICD Codes: E78.5 - Hyperlipidemia, unspecified Status: Chronic (7) New onset a-fib ICD Codes: I48.91 - Unspecified atrial fibrillation Status: Acute Assessment and Plan 1) CABG POD #4 WEI to LAD SVG to OM1 SVG to PDA 2) NSTEMI on presentation 3) ASA/Plavix/BB/Statin/Amio For heart rate control prefer Lopressor over Propranolol (previously on for his tremors) Hypertriglyceridemia, will start with Lipitor and diet, most likely will need further intervention, will recheck in outpt office 4) EF 40-45% pre-operatively 5) Blood pressure currently controlled 6) Afib slightly rapid post-opertaive BB increased Ecchymosis stable from IJ line Plan to start on Xarelto for Afib Venkata Mehta DO Mar 27, 2017 19:19
--- NOTE | 2017-04-17 12:19 | RSPPFT ---
DATE OF PROCEDURE: 03/20/17 COMMENTS: VOLUMES DYNAMIC: FVC and FEV1 severely reduced. FLOWS: FEV1% normal; FEF 25-75 mildly reduced. IMPRESSION: Probable moderate to severe restrictive ventilatory defect with terminal airflow obstruction. Full lung volumes would be necessary for further interpretation.
== END 2017-03-27 16:45 | disposition home or self-care (01) | DRG 234 ==
LOC: NEPC 11:15 → NEDA 14:19 → HCIS 21:01 → HCIN 03-20 18:27 → HCPC 03-23 08:30 → HCVR 03-23 15:43 → HCIN 03-24 12:03
PROVIDERS: ADMIT Thoracic Surgery (Cardiothoracic Vascular Surgery); ATTEND Thoracic Surgery (Cardiothoracic Vascular Surgery)
PROC: 4A023N7 Measurement of Cardiac Sampling and Pressure, Left Heart, Percutaneous Approach (ICD-10-PCS; 2017-03-20)
PROC: B2111ZZ Fluoroscopy of Multiple Coronary Arteries using Low Osmolar Contrast (ICD-10-PCS; 2017-03-20)
PROC: 021109W Bypass Coronary Artery, Two Arteries from Aorta with Autologous Venous Tissue, Open Approach (ICD-10-PCS; 2017-03-23)
PROC: 06BQ4ZZ Excision of Left Saphenous Vein, Percutaneous Endoscopic Approach (ICD-10-PCS; 2017-03-23)
PROC: 02100Z9 Bypass Coronary Artery, One Artery from Left Internal Mammary, Open Approach (ICD-10-PCS; principal; 2017-03-23 08:11)
DX: I21.4 Non-ST elevation (NSTEMI) myocardial infarction (principal); I48.0 Paroxysmal atrial fibrillation; I12.9 Hypertensive chronic kidney disease with stage 1 through stage 4 chronic kidney disease, or unspecified chronic kidney disease; E78.5 Hyperlipidemia, unspecified; G25.0 Essential tremor; E66.9 Obesity, unspecified; I25.10 Atherosclerotic heart disease of native coronary artery without angina pectoris; K08.89 Other specified disorders of teeth and supporting structures; Z85.820 Personal history of malignant melanoma of skin; Z79.01 Long term (current) use of anticoagulants; Z95.5 Presence of coronary angioplasty implant and graft; Z68.37 Body mass index [BMI] 37.0-37.9, adult; Z79.82 Long term (current) use of aspirin; N18.9 Chronic kidney disease, unspecified
CPT/HCPCS: 36430; 71010; 71020; 76937; 80048; 80053; 80061; 81001; 82272; 82550; 82552; 82948; 83036; 83735; 84484; 85014; 85025; 85027; 85610; 85730; 86850; 86900; 86901; 86920; 87641; 93005; 93306; 93318; 93454; 93970; 93998; 94002; 94010; 94150; 94640; 94664; 94667; 94668; 96374; C1768; C1769; C1893; C9248; J0131; J0690; J1644; J1815; J1817; J1940; J2250; J2440; J2720; J2930; J3010; J3370; J3475; J3480; J7040; P9016; Q9967